=== PATIENT | male | born 1950 | race Caucasian/White ===

== ENCOUNTER 2019-03-20 06:44 | Day surgery (SDC) | payer OTHER ==
[2019-03-20] MEDS ORDERED: BUPIVACAINE 0.25% PF 10 ML VIAL ONE (07:18)
[2019-03-20] MEDS ORDERED: LIDOCAINE 2% MPF 5 ML VIAL ONE ×2 (07:18→08:26)
[2019-03-20] MEDS ORDERED: TETRACAINE HCL 0.5% 4ML OPTH ONE (07:18)
[2019-03-20] MEDS ORDERED: CYCLOPENTOLATE 1% OPTH 2 ML ONE (07:18)
[2019-03-20] MEDS ORDERED: LIDOCAINE HCL/PF 3.5% OPTH GEL ONE (07:18)
[2019-03-20] MEDS ORDERED: PHENYLEPHRINE 10% OPTH 5ML ONE (07:19)
[2019-03-20] MEDS ORDERED: NA CHLORIDE 0.9% 500 ML ONE (07:19)
[2019-03-20] MEDS ORDERED: PHENYLEPHRINE 10% OPTH 5ML OPTH ONE ×2 (07:20→07:25)
[2019-03-20] MEDS ORDERED: CYCLOPENTOLATE 1% OPTH 2 ML OPTH ONE ×2 (07:20→07:25)
[2019-03-20] MEDS ORDERED: NS 0.9% VIAL 10 ML ONE (08:02)
[2019-03-20] MEDS ORDERED: BALANCED SALT IRRIG PLAIN 500 ML BTL IRR ONE (08:03)
[2019-03-20] MEDS ORDERED: EPINEPHRINE/PF 1 MG/ML AMP ONE (08:04)
[2019-03-20] MEDS ORDERED: DUOVISC 1 KIT OPTH ONE (08:04)
[2019-03-20] MEDS: EPINEPHRINE/PF 1 MG/ML AMP ONE ×2 (08:25→08:30)
[2019-03-20] MEDS ORDERED: PROPOFOL 200 MG/20 ML VIAL IV ONE (08:26)
[2019-03-20] MEDS: LIDOCAINE 1% MPF 2 ML AMPULE ONE ×2 (08:30→08:32)
[2019-03-20] MEDS ORDERED: MIDAZOLAM HCL 2 MG/2 ML INJ ONE (08:31)
[2019-03-20] MEDS ORDERED: FENTANYL CITR 100 MCG/2 ML ONE (08:32)
[2019-03-20] MEDS: MOXIFLOXACIN HCL 10 DROPS/ML **OR USE OPTH ONE ×2 (08:33→08:44)
--- NOTE | 2019-03-20 08:54 | P.BOP ---
Preoperative diagnosis: Nuclear sclerotic cataract OD Postoperative diagnosis: Same Primary procedure: Phacoemulsification with IOL OD Estimated blood loss: None Anesthesia: Local (Topical with anesthesia for cataract surgery) Complications: None Implants: ZCB00 +21.5 Transferred to: Other (Day surgery) Condition: Good
--- NOTE | 2019-03-20 12:15 | OP ---
Date of Procedure: 03/20/2019 Surgeon: Joleen Abrams MD Anesthesiologist: Lissette Ledbetter CRNA Preoperative Diagnosis: Nuclear sclerotic cataract OD (right eye). Operation Performed: Phacoemulsification with intraocular lens implant, right eye. Anesthesia: Per cataract surgery. Complications: None. Description Of Procedure: In the operating room the patient was prepped and draped in the usual ster ile fashion for ophthalmic surgery. A lid speculum was placed in the right eye. Two paracentesis si hailey were made superiorly and inferiorly in the limbal cornea. Viscoat was placed in the anterior park mber and a crescent blade was used to make a corneal groove and tunnel, and a keratome was used to en ter the anterior chamber. Provisc was placed in the anterior chamber and a 360 degree capsulotomy wa s performed with a cystitome. The lens was hydrodissected with BSS and rotated freely. The lens was removed with a stop and chop technique. 19.22 Phaco CDE was used to remove the lens. Residual mendez ex was removed with the irrigation and aspiration. Provisc was placed in the capsular bag. A ZCB00 +21.5 Lens was placed in the capsular bag without complications. Irrigation and aspiration was used to remove residual viscoelastic. The paracentesis sites were hydrated with BSS. The wound and parac entesis sites were inspected and found to be watertight. Vigamox 0.07 cc was placed intracamerally a t the end of the procedure. The eye was irrigated with balanced salt solution. The eye was patched with a soft cotton patch and Chou metal shield. The patient was returned to day surgery in good condition. Comments: Akten was placed in the eye in Day surgery and irrigated out of the eye with BSS in the OR . Preservative-free 1% lidocaine was placed in the anterior chamber. This was followed by 1:5000 ep inephrine. Both were placed prior to Viscoat. Discharge Instructions: Mr. Claudio is discharged to home in good condition and is to follow up with Ruthie Abrams in the morning. DRAGAN/WANDER Voice ID: [id number] Report ID: [id number]
== END 2019-03-20 09:20 | disposition home or self-care (01) ==
LOC: OR 06:44
PROVIDERS: ATTEND Ophthalmology Retina Specialist
PROC: 08RJ3JZ Replacement of Right Lens with Synthetic Substitute, Percutaneous Approach (ICD-10-PCS; principal; 2019-03-20 08:30)
DX: H25.11 Age-related nuclear cataract, right eye (principal); E11.9 Type 2 diabetes mellitus without complications; E78.00 Pure hypercholesterolemia, unspecified; D56.3 Thalassemia minor; I10 Essential (primary) hypertension; Z79.84 Long term (current) use of oral hypoglycemic drugs; Z79.1 Long term (current) use of non-steroidal anti-inflammatories (NSAID); Z79.899 Other long term (current) drug therapy; Z87.891 Personal history of nicotine dependence
CPT/HCPCS: 66984; 36415; 84132; 82962; J0171 ×2; J2250; J3010; J2001; J2704

== ENCOUNTER 2022-11-11 10:27 | Emergency (ER) | payer OTHER ==
--- OUTSIDE RECORDS SUMMARY | 2022-11-11 10:36 | XMS REPORT | Continuity of Care Document ---
:1950 Author Organization [facility] t Address [address] [place] [address] Care Team Providers Name Role Phone Asked, No Pcp Primary Care Physician Unavailable [id number] Attending Clinician Unavailable Donavon Acuna Attending Clinician Unavailable Donavon Acuna Attending Clinician Unavailable ARACELIS HOOK Attending Clinician Unavailable Rhina Attending Clinician Unavailable FANY AGUILAR Attending Clinician Unavailable Wade Cedillo MD Attending Clinician Joy Dahl Attending Clinician Unavailable ERNESTO MORENO Attending Clinician Unavailable Ernesto Moreno Attending Clinician CLARISSE WASHINGTON Attending Clinician Unavailable MARY GRACE Attending Clinician Unavailable Fiona Mcfarland Attending Clinician [phone] Ana Paula BAE, Aggie Attending Clinician Unavailable Jocelyne Mar Attending Clinician MD JOCELYNE MAR Attending Clinician Unavailable Rand Tinoco MA Attending Clinician Unavailable SELVIN ANSARI Attending Clinician Unavailable MD SELVIN ANSARI Attending Clinician Unavailable [id number] Admitting Clinician Unavailable Donavon Acuna Admitting Clinician Unavailable Rhina Admitting Clinician Unavailable ERNESTO MORENO Admitting Clinician Unavailable Ernesto Moreno Admitting Clinician BARTOLO_Jazzmine Admitting Clinician Unavailable JOCELYNE MAR Admitting Clinician Unavailable MD JOCELYNE MAR Admitting Clinician Unavailable JACQUIE CHAVEZ Admitting Clinician Unavailable MD JACQUIE CHAVEZ Admitting Clinician Unavailable Payers Payer Name Policy Type Policy Number Effective Date Expiration Date S cale MEDICARE PART A [id number] 2014 2024 AND B 00:00:00 00:00:00 [place]IC[place]: [id number] 2014 [employer] 00:00:00 Problems Condition Condition Condition Status Onset Resolution Last Treating Co mments Source Name Details Category Date Date Treatment Clinician Date FALL FALL Diagnosis Active 2021-06-25 Mem oria Active 06-21 10:08:00 l 06/21/2021 00:00: Homar sultana [address], [facility] FEMUR FEMUR Diagnosis Active 2021-07-01 Mem oria FX,S/P FX,S/P 06-21 09:56:00 l FALL FALL 00:00: [place] Active 00 06/21/2021 [facility] LIFE LIFE Diagnosis Active 2021-06-25 Mem oria FLIGHT FLIGHT 06-21 10:08:00 l Active 00:00: [place] 06/21/2021 00 [facility] Aortic Aortic Problem Active [place] valve Valve 5-04 Communi stenosis Stenosis 00:00: ty 00 Hospita Clinics Carotid Carotid Problem Active [place] atheroscle Atheroscle 5-04 Co m[facility] rosis rosis [facility]:00: [facility] Coronary Coronary Disease Active Overview: Me thodi artery artery 4-[address] disease disease 00:00: g of this Hospi ta involving involving 00 note l [place] might be coronary coronary different artery artery from the original. Added automatic ally from request for surgery [id number] Osteoporos Osteoporos Problem Active S niniy is is 3-17 Communi 00:00: ty [facility] COVID-19 Covid-19 Problem Active Sween y 1-28 Communi 00:00: ty 00 Hospita l Clinics Hypoxic Hypoxic Disease Active Methodi 1- st 00:00: Hospita 00 l COVID-19 COVID-19 Disease Active Metho di virus virus 1- st infection infection 00:00: Hosp rubén 00 l Malaise Malaise Problem Active [place] 9-02 Communi 00:00: ty 00 Hospita l Clinics Edema Edema Problem Active [place] 6-16 Communi 00:00: ty 00 Hospita l Clinics Compressio Compressio Problem Active S weeny n fracture n Fracture -16 Co mmuni of of 00:00: ty thoracic Thoracic 00 Hospit a spine Spine l Clinics Screening Screening Problem Active Swe anand for for - Communi osteoporos Osteoporos 00:00: ty is is 00 Hospita Clinics Acute Acute Problem Active [place] bronchitis Bronchitis 4-17 Co mmuni 00:00: ty 00 Hospita Clinics Type 2 Type 2 Problem Active [place] diabetes Diabetes 3-27 Commun i mellitus Mellitus 00:00: ty without without 00 Hospita complicati Complicati l on on Clinics Osteoarthr Osteoarthr Problem Active S weeny itis of itis of 3-27 Communi knee Knee 00:00: ty 00 Hospita Clinics Chest wall Chest Wall Problem Active S weeny pain Pain 3-27 Communi 00:00: ty 00 Hospita Clinics Dizziness Problem Active 2013-2021-06-26 Me moria (finding) Dizziness 2- 23:11:19 l (finding) 00:00: [place] Active 00 12/07/2013 Problem 06/26/2021 Data migrated from [employer] on 03/12/15. [facility] Hyperlipid Hyperlipid Problem Active [facility] Bursitis Bursitis Problem Active [place] [facility] Hallux Hallux Problem Active [place] [facility] Asthma Asthma Problem Active 2021-06-26 Mem oria (disorder) (disorder) 23:11:19 l Active [place] Problem 06/26/2021 Data migrated from [employer] on 03/12/15. [facility] Benign Benign Problem Active 2021-06-26 Jose Antonio yossi prostatic prostatic 23:11:19 l hypertroph hypertroph He rmann without without outflow outflow obstructio obstructio n n (disorder) (disorder) Active Problem 06/26/2021 [facility] Gout Gout Problem Active 2021-06-26 Memor ia (disorder) (disorder) 23:11:19 l Active [place] Problem 06/26/2021 [facility] on 03/12/15. [facility] Hypertensi Hypertens Problem Active 2021-06-26 Memoria ve sanjiv 23:11:19 l disorder, disorder, Herm isabel systemic systemic arterial arterial (disorder) (disorder) Active Problem 06/26/2021 [facility] Hyponatrem Hyponatre Problem Active 2021-06-26 Memoria ia isak 23:11:19 l (disorder) (disorder) He rmann Active Problem 06/26/2021 [facility] UNSP UNSP Diagnosis Active 2021-07-01 Mem oria FRACTURE FRACTURE 09:56:00 l OF UNSP OF UNSP [place] FEMUR, FEMUR, INIT INIT ENCNTR ENCNTR Active [facility] Alcohol Alcohol Problem Active 2021-06-26 Me moria dependence dependence 23:11:19 l (disorder) (disorder) He rmann Active Problem 06/26/2021 [facility] Anemia of Anemia of Problem Active 2021-06-26 Memoria chronic chronic 23:11:19 l disorder disorder Homar n (disorder) (disorder) Active Problem 06/26/2021 [facility] Aortic Aortic Disease Recurre Methodi stenosis, stenosis, nce st severe severe Hospita l Aneurysm Aneurysm Disease Recurre Meth regulo of of nce st ascending ascending Hosp rubén aorta aorta l Type 2 Type 2 Disease Recurre Methodi diabetes diabetes nce st mellitus, mellitus, Hosp rubén without without l long-term long-term current current use of use of insulin insulin Diabetic Diabetic Disease Recurre Meth regulo neuropathy neuropathy nce st associated associated Ho spita with type with type l 2 diabetes 2 diabetes mellitus mellitus Thalassemi Thalassemi Disease Recurre Methodi a minor a minor nce st Hospita l Essential Essential Disease Recurre Me thodi hypertensi hypertensi nce st on on Hospita l Mixed Mixed Disease Recurre Methodi hyperlipid hyperlipid nce st emia emia Hospita l PTSD PTSD Disease Recurre Methodi (post-trau (post-trau nce [facility] Hospita stress stress l disorder) disorder) Anxiety Anxiety Disease Recurre Method i nce st Hospita l Chronic Chronic Disease Recurre Overview: Met hodi diastolic diastolic nce Formattin s t congestive congestive g of this Hospita heart heart note l failure failure might be different from the original. NYHA FC II Diabetes Diabetes Disease Active Overview: Me thodi Formattin st g of this Hospita note l might be different from the original. NIDDM Allergies, Adverse Reactions, Alerts Allergy Allergy Status Severity Reaction(s) Onset Inactive Treating Comm ents Source Name Type Date Date Clinician NKA Allergy Active ENCGEN 07-10 12:08: 25 NKA Allergy Active ENCGEN 07-10 12:08: 25 NKA Allergy Active ENCGEN 07-10 12:08: 25 NKA Allergy Active ENCGEN 07-10 12:08: 25 Meperidi Propensi Active Anxiety Metho di ne ty to 4-14 st adverse 00:00: Hospita reaction 00 l s to drug No Known Drug Active [facility] Allopuri Allergy Active [place] [facility] Family History Family Member Diagnosis Comments Start Date Stop Date Source Cousin Coronary artery [facility] disease Social History Social Habit Start Date Stop Date Quantity Comments Source History [facility] Comment Hospital History [facility] Std Drinks Hospit al History [facility] B[facility] History of tobacco Current smoker [facility] use [facility] Social History 2021-06-21 2021-06-21 [facility] 18:44:26 18:44:26 Alcohol intake 2021-01-29 2021-01-29 Current drinker Metho dist 00:00:00 00:00:00 of alcohol Hospital (finding) Tobacco use and 2021-01-15 2021-01-15 Smokeless tobacco Me thodist exposure 00:00:00 00:00:00 non-user Hospital Cigarettes smoked 2021-01-15 2021-01-[address] current (pack per 00:00:00 00:00:00 Hospita l day) - Reported Cigarette 2021-01-15 2021-01-15 [facility] pack-years 00:00:00 00:00:00 Hospital History SDOH 2020-11-05 2020-11-05 1 [facility] Ass[facility] At [birth year] M [facility] 00:00:00 00:00:00 Hospital Smoking Status Start Date Stop Date Source Never Smoker [facility] Ex-smoker 2021-01-15 00:00:00 2021-01-15 00:00:00 [facility] Medications Ordered Filled Start Stop Current Ordering Indication Dosage Frequency Signature Comments Components Source Medication Medication Date Date Medication? Clinician (SIG) Name Name Metformin No Notes: Memori a 9-14 (Same as: l 21:30: Glucophage [place] ) Take with meal Metformin No Notes: Memori a 9-14 (Same as: l 21:30: Glucophage [place] ) Take with meal gabapentin Yes 100 mg = 1 M emoria 100 MG Oral 14 cap, PO, l Capsule 19:35: Q8H-06, 0 Almita nn 00 Refill(s) Oxycodone Yes 5 mg = 1 Jose Antonio yossi Hydrochlori -14 tab, PO, l de 5 MG 19:35: Q4H, PRN Homar n Oral Tablet 00 Pain Score 4-6, 0 Refill(s) gabapentin Yes 100 mg = 1 M emoria 100 MG Oral -14 cap, PO, l Capsule 19:35: Q8H-06, 0 [place]mita nn 00 Refill(s) Oxycodone Yes 5 mg = 1 Jose Antonio yossi Hydrochlori -14 tab, PO, l de 5 MG 19:35: Q4H, PRN Homar n Oral Tablet 00 Pain Score 4-6, 0 Refill(s) Lidocaine Yes 1 patch, Jose Antonio yossi 0.04 MG/MG 06-24 TOP, l Medicated 17:22: Daily, Homar n Patch 00 Remove after 12 hours, 0 Refill(s) Melatonin 3 Yes 3 mg = 1 Me moria MG Extended 9-14 tab, PO, l Release 17:22: Bedtime, Homar n Tablet 00 PRN Insomnia, 0 Refill(s) methocarbam Yes 750 mg = 1 Memoria ol 750 mg 9-14 tab, PO, l oral tablet 17:22: Q8H-06, 0 H erm Refill(s) multivitami Yes 1 tab, PO, Memoria n 9-14 Daily, 0 l 17:22: Refill(s) [place] 00 sennosides, Yes 17.2 mg = M emoria CARE HOME 8.6 MG 9-14 2 tab, PO, l Oral Tablet 17:22: Bedtime, 0 [place] 00 Refill(s) POLYETHYLEN Yes 17 gm, PO, Memoria E GLYCOL 9-14 Daily, 0 l 3350 17:22: Refill(s) Lidocaine Yes 1 patch, Jose Antonio yossi 0.04 MG/MG 9-14 TOP, l Medicated 17:22: Daily, Homar n Patch 00 Remove after 12 hours, 0 Refill(s) Melatonin 3 Yes 3 mg = 1 Me moria MG Extended 9-14 tab, PO, l Release 17:22: Bedtime, Homar n Tablet 00 PRN Insomnia, 0 Refill(s) methocarbam Yes 750 mg = 1 Memoria ol 750 mg 9-14 tab, PO, l oral tablet 17:22: Q8H-06, 0 H erm Refill(s) multivitami Yes 1 tab, PO, Memoria n 9-14 Daily, 0 l 17:22: Refill(s) [place] 00 sennosides, Yes 17.2 mg = M emoria CARE HOME 8.6 MG 9-14 2 tab, PO, l Oral Tablet 17:22: Bedtime, 0 [place] 00 Refill(s) POLYETHYLEN Yes 17 gm, PO, Memoria E GLYCOL 9-14 Daily, 0 l 3350 17:22: Refill(s) [place] 00 Metformin Yes 1,000 mg = Me moria hydrochlori 9-14 1 tab, PO, l de 1000 MG 17:21: BID-Meals, H ermann Oral Tablet 00 # 30 tab, 0 Refill(s), other acetaminoph Yes 1,000 mg = Memoria en 500 mg 9-14 2 tab, PO, l oral 17:21: Q8H-06, 0 [place] tablet. 00 Refill(s) Calcium 0 Yes 1,250 mg = Jose Antonio yossi Carbonate 9-14 1 tab, PO, l 1250 MG 17:21: BID, 0 [place] Oral Tablet 00 Refill(s) Cholecalcif 0 Yes 1,000 Memor ia kaylie 9-14 IntlUnit = l 17:21: 1 tab, PO, [place] 00 Daily, 0 Refill(s) Enoxaparin Yes 30 mg = Jose Antonio yossi 9-14 0.3 mL, l 17:21: SUB-Q, [place] 00 Q12H, 0 Refill(s) Metformin Yes 1,000 mg = Me moria hydrochlori 9-14 1 tab, PO, l de 1000 MG 17:21: BID-Meals, H ermann Oral Tablet 00 # 30 tab, 0 Refill(s), other acetaminoph Yes 1,000 mg = Memoria en 500 mg 9-14 2 tab, PO, l oral 17:21: Q8H-06, 0 [place] tablet. 00 Refill(s) Calcium Yes 1,250 mg = Jose Antonio yossi Carbonate 9-14 1 tab, PO, l 1250 MG 17:21: BID, 0 [place] Oral Tablet 00 Refill(s) Cholecalcif Yes 1,000 Memor ia kaylie 9-14 IntlUnit = l 17:21: 1 tab, PO, [place] 00 Daily, 0 Refill(s) Enoxaparin Yes 30 mg = Jose Antonio yossi 9-14 0.3 mL, l 17:21: SUB-Q, [place] 00 Q12H, 0 Refill(s) remove No Notes: Memoria patch 9-14 Remove l 02:00: patch 12 [place] 00 hours after applicatio n each day. remove No Notes: Memoria patch 9-14 Remove l 02:00: patch 12 [place] 00 hours after applicatio n each day. Metformin No 500 mg, Memor ia hydrochlori 9-13 Route: PO, l de 500 MG 22:00: Drug form: He rmann Oral Tablet 00 TAB, BID, Dosing Weight 100, kg, Start date: 06/23/21 17:00:00 CDT, Duration: 30 day, Stop date: 07/23/21 9:00:00 CDT Metformin No 500 mg, Memor ia hydrochlori 9-13 Route: PO, l de 500 MG 22:00: Drug form: He rmann Oral Tablet 00 TAB, BID, Dosing Weight 100, kg, Start date: 06/23/21 17:00:00 CDT, Duration: 30 day, Stop date: 07/23/21 9:00:00 CDT Metformin No Notes: Memori a hydrochlori 9-13 (Same as: l de 500 MG 21:30: Glucophage He rmann Oral Tablet 00 ) Take with meal Glipizide No Notes: Memori a 9-13 (Same as: l 21:30: Glucotrol) [place] 00 30 min before meals. Metformin No Notes: Memori a hydrochlori 9-13 (Same as: l de 500 MG 21:30: Glucophage He rmann Oral Tablet 00 ) Take with meal Glipizide No Notes: Memori a 9-13 (Same as: l 21:30: Glucotrol) [place] 00 30 min before meals. NS (Bolus) No 1,000 mL, Me moria IV 9-13 1,000 l 18:42: ml/hr, Ch[place] 00 Infuse Over: 1 hr, Route: IV, 1,000, Drug form: INJ, ONCE, Priority: STAT, Dosing Weight 100 kg, Start date: 06/23/21 13:42:00 CDT, Stop date: 06/23/21 13:42:00 CDT, 0 NS (Bolus) No 1,000 mL, Me moria IV 9-13 1,000 l 18:42: ml/hr, Chiki 00 Infuse Over: 1 hr, Route: IV, 1,000, Drug form: INJ, ONCE, Priority: STAT, Dosing Weight 100 kg, Start date: 06/23/21 13:42:00 CDT, Stop date: 06/23/21 13:42:00 CDT, 0 Metformin No 500 mg = 1 Me moria hydrochlori 9-13 tab, PO, l de 500 MG 16:42: QID, 0 Homar n Oral Tablet 00 Refill(s) Metformin No 500 mg = 1 Me moria hydrochlori 9-13 tab, PO, l de 500 MG 16:42: QID, 0 Homar n Oral Tablet 00 Refill(s) Glipizide Yes 20 mg = 2 Mem oria 10 MG Oral 9-13 tab, PO, l Tablet 16:36: BID-Before Almita nn 00 Meals, # 180 tab, 1 Refill(s) Glipizide Yes 20 mg = 2 Mem oria 10 MG Oral 9-13 tab, PO, l Tablet 16:36: BID-Before Almita nn 00 Meals, # 180 tab, 1 Refill(s) Glipizide No 10 mg, 1 Jose Antonio yossi 10 MG Oral 9-13 tab, l Tablet 16:33: Route: PO, Almit[place] nn 00 Daily, Dosing Weight 100, kg, Priority: NOW, Start date: 06/23/21 11:33:00 CDT, Duration: 30 day, Stop date: 07/23/21 9:00:00 CDT Glipizide No 10 mg, 1 Jose Antonio yossi 10 MG Oral 9-13 tab, l Tablet 16:33: Route: PO, Almita nn 00 Daily, Dosing Weight 100, kg, Priority: NOW, Start date: 06/23/21 11:33:00 CDT, Duration: 30 day, Stop date: 07/23/21 9:00:00 CDT Oxycodone No Notes: Memori a Hydrochlori 9-13 (Same as: l de 5 MG 16:32: Roxicodone Herm isabel Oral Tablet 00 ) Oxycodone No Notes: Memori a Hydrochlori 9-13 (Same as: l de 5 MG 16:32: Roxicodone Herm isable Oral Tablet 00 ) gabapentin No Notes: Memor ia 100 MG Oral 9-13 (Same as: l Capsule 16:30: Neurontin) Herm isabel gabapentin No Notes: Memor ia 100 MG Oral - (Same as: l Capsule 16:30: Neurontin) Herm isabel Linagliptin No 5 mg, Memor ia 06-23 Route: PO, l 14:00: Daily, Dosing Weight 100, kg, Start date: 06/23/21 9:00:00 CDT Lidocaine No Notes: Memori a 0.04 MG/MG 06-23 Apply only l Medicated 14:00: once for Herm isabel Patch 00 up to 12 hours in a 24-hour period (12 hours on and 12 hours off). (Same as: Aspercreme Lidocaine Patch) "Remove old patch before applicatio n of new patch" No Notes: Memoria 06-23 Same as l 14:00: Cholecalcif No Notes: Jose Antonio yossi kaylie 06-23 Same as : l 14:00: Vitamin D3 Linagliptin No 5 mg, Memor ia 06-23 Route: PO, l 14:00: Daily, Dosing Weight 100, kg, Start date: 06/23/21 9:00:00 CDT Lidocaine No Notes: Memori a 0.04 MG/MG 06-23 Apply only l Medicated 14:00: once for Herm isabel Patch 00 up to 12 hours in a 24-hour period (12 hours on and 12 hours off). (Same as: Aspercreme Lidocaine Patch) "Remove old patch before applicatio n of new patch" No Notes: Memoria 9- Same as l 14:00: Cholecalcif No Notes: Jose Antonio yossi kaylie 13 Same as : l 14:00: Vitamin D3 Calcium No Notes: Memoria Gluconate 06-23 Contains: l 08:23: calcium gluconate 20mg/mL NaCl 0.67% 50mL WASTE: F/P - Sink; E - Municipal Trash Bin Calcium No Notes: Memoria Gluconate 06-23 Contains: l 08:23: calcium gluconate 20mg/mL NaCl 0.67% 50mL WASTE: F/P - Sink; E - Municipal Trash Bin Enoxaparin No Notes: Memor ia 9-13 (Same as: l 02:00: Lovenox) Enoxaparin No Notes: Memor ia 9-13 (Same as: l 02:00: Lovenox) Cefazolin No Notes: Memori a 9-13 (Same as l 01:00: Ancef) Cefazolin No Notes: Memori a 9-13 (Same as l 01:00: Ancef) [place] 00 Calcium No Notes: Memoria Carbonate -12 500mg l 22:00: elemental calcium = 1250mg calcium carbonate. Contains 500mg elemental calcium. (Same As: OsCal 500) Calcium No Notes: Memoria Carbonate - 500mg l 22:00: elemental calcium = 1250mg calcium carbonate. Contains 500mg elemental calcium. (Same As: OsCal 500) sugammadex No Route: IV, M emoria (ANES) 06-22 Drug form: l 19:26: SOLNChiki ONCE, Stop date: 06/22/21 14:26:00 CDT sugammadex No Route: IV, M emoria (ANES) 06-22 Drug form: l 19:26: SOLNChiki 00 ONCE, Stop date: 06/22/21 14:26:00 CDT ondansetron No Route: IV, Memoria (ANES) 06-22 Drug form: l 19:13: INJ, ONCE, Stop date: 06/22/21 14:13:00 CDT phenylephri No Route: IV, Memoria ne (ANES) 06-22 Drug form: l 19:13: INJ, ONCE, [place] 00 Stop date: 06/22/21 14:13:00 CDT ondansetron No Route: IV, Memoria (ANES) 06-22 Drug form: l 19:13: INJ, ONCE, [place] 00 Stop date: 06/22/21 14:13:00 CDT phenylephri No Route: IV, Memoria ne (ANES) 06-22 Drug form: l 19:13: INJ, ONCE, Stop date: 06/22/21 14:13:00 CDT Acetaminoph No Notes: Max Memoria en 06-22 acetaminop l 19:00: hen 4000 [place] 00 mg/day (4 gm/day). (Same as: Tylenol Extra Strength) Methocarbam No Notes: Jose Antonio yossi ol 06-22 (Same l 19:00: as:Robaxin ) Acetaminoph No Notes: Max Memoria en 06-22 acetaminop l 19:00: hen 4000 [place] 00 mg/day (4 gm/day). (Same as: Tylenol Extra Strength) Methocarbam No Notes: Jose Antonio yossi ol - (Same l 19:00: as:Robaxin ) ePHEDrine No Route: IV, Me moria (ANES) 06-22 Drug form: l 18:27: INJ, ONCE, Stop date: 06/22/21 13:27:00 CDT ePHEDrine No Route: IV, Me moria (ANES) 06-22 Drug form: l 18:27: INJ, ONCE, Stop date: 06/22/21 13:27:00 CDT ceFAZolin No Route: IV, Me moria (ANES) 06-22 Drug form: l 17:57: INJ, ONCE, Stop date: 06/22/21 12:57:00 CDT ceFAZolin No Route: IV, Me moria (ANES) 06-22 Drug form: l 17:57: INJ, ONCE, Stop date: 06/22/21 12:57:00 CDT albuterol No Route: Memori a (ANES) 06-22 INHALATION l 17:52: , Drug form: AERO/A, ONCE, Stop date: 06/22/21 12:52:00 CDT albuterol No Route: Memori a (ANES) - INHALATION l 17:52: , Drug form: AERO/A, ONCE, Stop date: 06/22/21 12:52:00 CDT Oxycodone No Notes: Memori a Hydrochlori -12 (Same as: l de 5 MG 17:51: Roxicodone Herm isabel Oral Tablet ) Oxycodone No Notes: Memori a Hydrochlori -12 (Same l de 1 MG/ML 17:51: as:'Roxico H ermann Oral done) To Solution be drawn up in 3 mL syr Oxycodone No Notes: Memori a Hydrochlori -12 (Same as: l de 5 MG 17:51: Roxicodone Herm isabel Oral Tablet ) Oxycodone No Notes: Memori a Hydrochlori 9-12 (Same l de 1 MG/ML 17:51: as:'Roxico H ermann Oral done) To Solution be drawn up in 3 mL syr lidocaine No Route: IV, Me moria (ANES) 06-22 Drug form: l 17:47: INJ, ONCE, Stop date: 06/22/21 12:47:00 CDT propofol No Route: IV, Mem oria (ANES) 06-22 Drug form: l 17:47: INJ, ONCE, Stop date: 06/22/21 12:47:00 CDT rocuronium No Route: IV, M emoria (ANES) 06-22 Drug form: l 17:47: INJ, ONCE, Stop date: 06/22/21 12:47:00 CDT fentaNYL No Route: IV, Mem oria (ANES) 06-22 Drug form: l 17:47: INJ, ONCE, Stop date: 06/22/21 12:47:00 CDT Melatonin 3 No Notes: Jose Antonio yossi MG Extended 06-22 (Same as: l Release 17:47: Melatonin) Herm isabel Tablet 00 lidocaine No Route: IV, Me moria (ANES) 06-22 Drug form: l 17:47: INJ, ONCE, Stop date: 06/22/21 12:47:00 CDT propofol No Route: IV, Mem oria (ANES) 06-22 Drug form: l 17:47: INJ, ONCE, [place]iki Stop date: 06/22/21 12:47:00 CDT rocuronium No Route: IV, M emoria (ANES) 06-22 Drug form: l 17:47: INJ, ONCE, Chiki Stop date: 06/22/21 12:47:00 CDT fentaNYL No Route: IV, Mem oria (ANES) 06-22 Drug form: l 17:47: INJ, ONCE, [place] Stop date: 06/22/21 12:47:00 CDT Melatonin 3 No Notes: Jose Antonio yossi MG Extended 06-22 (Same as: l Release 17:47: Melatonin) Herm isabel Tablet Acetaminoph No Notes: Max Memoria en 06-22 acetaminop l 17:34: hen 4000 [place] 00 mg/day (4 gm/day). (Same as: Tylenol Extra Strength) Oxycodone No Notes: Memori a Hydrochlori 06-22 (Same as: l de 5 MG 17:34: Roxicodone Herm isabel Oral Tablet ) Hydromorpho No Notes: Jose Antonio yossi ne 06-22 Same as l 17:34: Dilaudid [place] 00 Flumazenil No Notes: Memor ia 06-22 (Same as: l 17:34: Romazicon) [place] Naloxone No Notes: Memoria 06-22 Same as l 17:34: Narcan [place] Ondansetron No Notes: Jose Antonio yossi -12 (Same as: l 17:34: Zofran) [place] MEDICATION WASTE Product Size: 4 mg Product Wasted: ___ mg Acetaminoph No Notes: Max Memoria en -12 acetaminop l 17:34: hen 4000 [place] 00 mg/day (4 gm/day). (Same as: Tylenol Extra Strength) Oxycodone No Notes: Memori a Hydrochlori 9-12 (Same as: l de 5 MG 17:34: Roxicodone Herm isabel Oral Tablet 00 ) Hydromorpho No Notes: Jose Antonio yossi ne 9-12 Same as l 17:34: Dilaudid Flumazenil No Notes: Memor ia 9-12 (Same as: l 17:34: Romazicon) Naloxone No Notes: Memoria 9-12 Same as l 17:34: Narcan Ondansetron No Notes: Jose Antonio yossi 9-12 (Same as: l 17:34: Zofran) MEDICATION WASTE Product Size: 4 mg Product Wasted: ___ mg Lactated No Route: IV, Mem oria Ringers 9-12 Total l Injection 17:05: Volume: Almita nn IV (ANES) 00 1,000, 1000 mL Start date: 06/22/21 12:05:00 CDT, Stop date: 06/22/21 13:05:00 CDT Lactated No Route: IV, Mem oria Ringers 9-12 Total l Injection 17:05: Volume: Almita nn IV (ANES) 00 1,000, 1000 mL Start date: 06/22/21 12:05:00 CDT, Stop date: 06/22/21 13:05:00 CDT Atenolol 25 No Notes: Jose Antonio yossi MG Oral 9-12 (Same l Tablet 14:00: As:Tenormi Almita nn 00 n) Finasteride No Notes: Jose Antonio yossi 9-12 (Same as: l 14:00: Proscar) "Do Not Crush" Women of childbeari ng age should not touch or handle broken tablets [facility] 3:Reproduc tive risk Hazardous Drug -- Refer to safe handling procedure PPE Matrix Folic Acid No Notes: Memor ia 9-12 (Same as: l 14:00: Folvite) [place] 00 Losartan No Notes: Memoria 9-12 (Same as: l 14:00: Cozaar) Omeprazole No 20 mg, 1 Mem oria 9-12 tab, l 14:00: Route: PO, Drug form: ECTAB, Daily, Dosing Weight 106.818, kg, Start date: 06/22/21 9:00:00 CDT, Duration: 30 day, Stop date: 07/21/21 9:00:00 CDT Flomax No Notes: Memoria 9-12 (Same As: l 14:00: Flomax) "Do Not Crush" POLYETHYLEN No Notes: Jose Antonio yossi E GLYCOL 9-12 Dissolve l 3350 14:00: in 8 oz of water or juice. (Same as: Miralax) Thiamine No Notes: Memoria 9-12 (Same As: l 14:00: Vitamin B1) multivitami No Notes: Jose Antonio yossi n 9-12 (Same l 14:00: as:Thera) WASTE: F/P - Black; E - Municipal Trash Bin Take with food. Atenolol 25 No Notes: Jose Antonio yossi MG Oral 9-12 (Same l Tablet 14:00: As:Tenormi Almita nn n) Finasteride No Notes: Jose Antonio yossi 9-12 (Same as: l 14:00: Proscar) "Do Not Crush" Women of childbeari ng age should not touch or handle broken tablets [facility] 3:Reproduc tive risk Hazardous Drug -- Refer to safe handling procedure PPE Matrix Folic Acid No Notes: Memor ia 9-12 (Same as: l 14:00: Folvite) [place] 00 Losartan No Notes: Memoria 9-12 (Same as: l 14:00: Cozaar) Omeprazole No 20 mg, 1 Mem oria 9-12 tab, l 14:00: Route: PO, Drug form: ECTAB, Daily, Dosing Weight 106.818, kg, Start date: 06/22/21 9:00:00 CDT, Duration: 30 day, Stop date: 07/21/21 9:00:00 CDT Flomax No Notes: Memoria 9-12 (Same As: l 14:00: Flomax) [place] 00 "Do Not Crush" POLYETHYLEN No Notes: Jose Antonio yossi E GLYCOL 9-12 Dissolve l 3350 14:00: in 8 oz of [place] water or juice. (Same as: Miralax) Thiamine No Notes: Memoria 9-12 (Same As: l 14:00: Vitamin [place] 00 B1) multivitami No Notes: Jose Antonio yossi n 9-12 (Same l 14:00: as:Thera) [place] 00 WASTE: F/P - Black; E - Municipal Trash Bin Take with food. Protonix No Notes: Memoria 9-12 Tablet l 12:30: should not [place] 00 be chewed or crushed. (Same as: Protonix) Protonix No Notes: [facility]oria 9-12 Tablet l 12:30: should not [place] 00 be chewed or crushed. (Same as: Protonix) Streptococc No Notes: Jose Antonio yossi us 9-12 Shake well l pneumoniae 11:18: prior to Her [facility] serotype 1 08 use (Same capsular as: antigen Prevnar diphtheria 13) [id number] protein conjugate vaccine / Streptococc us pneumoniae serotype 14 capsular antigen diphtheria [id number] protein conjugate vaccine / Streptococc us pneumoniae serotype 18C capsular antigen d Streptococc No Notes: Jose Antonio yossi us 9-12 Shake well l pneumoniae 11:18: prior to Her [facility] serotype 1 08 use (Same capsular as: antigen Prevnar diphtheria 13) [id number] protein conjugate vaccine / Streptococc us pneumoniae serotype 14 capsular antigen diphtheria [id number] protein conjugate vaccine / Streptococc us pneumoniae serotype 18C capsular antigen d Famotidine No 20 mg, Memor ia 9-12 Route: IV, l 03:26: ONCE, [place] 00 Dosing Weight 106.818, kg, Start date: 06/21/21 22:26:00 CDT, Stop date: 06/21/21 22:26:00 CDT Famotidine No 20 mg, Memor ia 9-12 Route: IV, l 03:26: ONCE, [place] 00 Dosing Weight 106.818, kg, Start date: 06/21/21 22:26:00 CDT, Stop date: 06/21/21 22:26:00 CDT atorvastati No Notes: Jose Antonio yossi n 9-12 (Same as: l 02:00: Lipitor) gabapentin No Notes: Memor ia 9-12 (Same as: l 02:00: Neurontin) sennosides, No Notes: Jose Antonio yossi CARE HOME 9-12 (Same as: l 02:00: Senokot) atorvastati No Notes: Jose Antonio yossi n 9-12 (Same as: l 02:00: Lipitor) gabapentin No Notes: Mem[facility] ia 9-12 (Same as: l 02:00: Neurontin) sennosides, No Notes: Jose Antonio yossi CARE HOME 9-12 (Same as: l 02:00: Senokot) Lorazepam No Notes: Memori a 9-11 (Same as: l 23:22: Ativan) Lorazepam No Notes: Memori a 9-11 (Same as: l 23:22: Ativan) Enoxaparin No Notes: Memor ia 9-11 (Same as: l 23:00: Lovenox) Enoxaparin No Notes: Memor ia 9-11 (Same as: l 23:00: Lovenox) Tums No Notes: [facility]oria 9-11 (Same As: l 22:57: Tums) Calcium Carbonate 500 mg = 200 mg elemental calcium Dose = mg calcium carbonate ( mg elemental calcium) Tums No Notes: [facility] 9-11 (Same As: l 22:57: Tums) Calcium Carbonate 500 mg = 200 mg elemental calcium Dose = mg calcium carbonate ( mg elemental calcium) D-50-W No 12.5 gm, [facility] 9-11 25 mL, l 22:56: Route: IVP, Drug Form: INJ, Dosing Weight 106.818, kg, PRN, PRN Blood Glucose Results, Start date: 06/21/21 17:56:00 CDT, Duration: 30 day, Stop date: 07/21/21 17:55:00 CDT, 0 Glucagon 2020-0 No 1 mg, [facility] 9-11 Route: IM, l 22:56: Drug form: [place] 00 PDR/INJ, PRN, Dosing Weight 106.818, kg, PRN Blood Glucose Results, Start date: 06/21/21 17:56:00 CDT, Duration: 30 day, Stop date: 07/21/21 17:55:00 CDT, 0 Insulin 2020-0 No Notes: Memoria Lispro 9-11 (Same as: l 22:56: Humalog) Roll in palms of hands gently; Do not shake vigorously . WASTE: F/P - Black; E - Municipal Trash Bin Stable for 28 days at room temperatur e. Expires in days from ____Date D-50-W 2020-0 No 12.5 gm, [facility] 9-11 25 mL, l 22:56: Route: [place] 00 IVP, Drug Form: INJ, Dosing Weight 106.818, kg, PRN, PRN Blood Glucose Results, Start date: 06/21/21 17:56:00 CDT, Duration: 30 day, Stop date: 07/21/21 17:55:00 CDT, 0 Glucagon 2020-0 No 1 mg, [facility] 9-11 Route: IM, l 22:56: Drug form: [place] 00 PDR/INJ, PRN, Dosing Weight 106.818, kg, PRN Blood Glucose Results, Start date: 06/21/21 17:56:00 CDT, Duration: 30 day, Stop date: 07/21/21 17:55:00 CDT, 0 Insulin 2020-0 No Notes: [facility] Lispro 9-11 (Same as: l 22:56: Humalog) [place] 00 Roll in palms of hands gently; Do not shake vigorously . WASTE: F/P - Black; E - Municipal Trash Bin Stable for 28 days at room temperatur e. Expires in days from ____Date Acetaminoph No Notes: Max [facility]oria en -11 acetaminop l 22:55: hen 4000 [place] 00 mg/day (4 gm/day). (Same as: Tylenol Extra Strength) Oxycodone No Notes: Memori a Hydrochlori 9-11 (Same as: l de 1 MG/ML 22:55: 'Roxicodon H ermann Oral 00 e) Solution Oxycodone No Notes: Memori a Hydrochlori 9-11 (Same as: l de 5 MG 22:55: Roxicodone Herm isabel Oral Tablet 00 ) Naloxone No Notes: [facility] 9-11 Same as l 22:55: Narcan [place] 00 Acetaminoph No Notes: Max [facility]oria en 9-11 acetaminop l 22:55: hen 4000 [place] 00 mg/day (4 gm/day). (Same as: Tylenol Extra Strength) Oxycodone No Notes: Memori a Hydrochlori 9-11 (Same as: l de 1 MG/ML 22:55: 'Roxicodon H ermann Oral 00 e) Solution Oxycodone No Notes: Memori a Hydrochlori 9-11 (Same as: l de 5 MG 22:55: Roxicodone Herm isabel Oral Tablet 00 ) Naloxone No Notes: [facility] 9-11 Same as l 22:55: Narcan [place] 00 D-50-W No 12.5 gm, [facility] 9-11 25 mL, l 22:53: Route: [place] 00 IVP, Drug Form: INJ, Dosing Weight 106.818, kg, PRN, PRN Blood Glucose Results, Start date: 06/21/21 17:53:00 CDT, Duration: 30 day, Stop date: 07/21/21 17:52:00 CDT, 0 Glucagon No 1 mg, Mem[facility] 9 Route: IM, l 22:53: Drug form: [place] 00 PDR/INJ, PRN, Dosing Weight 106.818, kg, PRN Blood Glucose Results, Start date: 06/21/21 17:53:00 CDT, Duration: 30 day, Stop date: 07/21/21 17:52:00 CDT, 0 Ondansetron No Notes: Jose Antonio yossi 06-21 (Same as: l 22:53: Zofran) [place] 00 MEDICATION WASTE Product Size: 4 mg Product Wasted: ___ mg Acetaminoph No Notes: Do M emoria en 06-21 not exceed l 22:53: 4 gm/day. (Same as: Tylenol) Acetaminoph No Notes: Do M emoria en 06-21 not exceed l 22:53: 4 gm/day. [place] (Same as: Tylenol) D-50-W No 12.5 gm, Memoria - 25 mL, l 22:53: Route: IVP, Drug Form: INJ, Dosing Weight 106.818, kg, PRN, PRN Blood Glucose Results, Start date: 06/21/21 17:53:00 CDT, Duration: 30 day, Stop date: 07/21/21 17:52:00 CDT, 0 Glucagon No 1 mg, [facility] 06-21 Route: IM, l 22:53: Drug form: [place] 00 PDR/INJ, PRN, Dosing Weight 106.818, kg, PRN Blood Glucose Results, Start date: 06/21/21 17:53:00 CDT, Duration: 30 day, Stop date: 07/21/21 17:52:00 CDT, 0 Ondansetron No Notes: Jose Antonio yossi 06-21 (Same as: l 22:53: Zofran) [place] 00 MEDICATION WASTE Product Size: 4 mg Product Wasted: ___ mg Metformin No 500 mg = 1 Me moria hydrochlori -11 tab, PO, l de 500 MG 22:50: BID-Meals, He ann Oral Tablet 00 # 30 tab, 0 Refill(s) Tamsulosin Yes 0.4 mg = 1 M emoria hydrochlori 11 cap, PO, l de 0.4 MG 22:50: Daily, # Herm isabel Oral 00 30 cap, 0 Capsule Refill(s) [Flomax] omeprazole Yes 20 mg = 1 Me moria 20 mg oral 9-11 tab, PO, l enteric 22:50: Daily, # Homar n coated 00 30 tab, 3 tablet Refill(s) Metformin No 500 mg = 1 Me moria hydrochlori 9-11 tab, PO, l de 500 MG 22:50: BID-Meals, He rmann Oral Tablet 00 # 30 tab, 0 Refill(s) Tamsulosin Yes 0.4 mg = 1 M emoria hydrochlori 9-11 cap, PO, l de 0.4 MG 22:50: Daily, # Herm isabel Oral 00 30 cap, 0 Capsule Refill(s) [Flomax] omeprazole Yes 20 mg = 1 [facility] 20 mg oral 9-11 tab, PO, l enteric 22:50: Daily, # Homar n coated 00 30 tab, 3 tablet Refill(s) finasteride Yes 5 mg = 1 Me moria 5 mg oral 9-11 tab, PO, l tablet 22:49: Daily, # [place] 00 30 tab, 0 Refill(s) Folic Acid Yes 1 mg = 1 Mem oria 1 MG Oral 9-11 tab, PO, l Tablet 22:49: Daily, # [place] 00 30 tab, 0 Refill(s) Glipizide No 10 mg = 1 Mem oria 10 MG Oral 9-11 tab, PO, l Tablet 22:49: Before [place] 00 Breakfast, # 30 tab, 0 Refill(s) losartan 50 Yes 50 mg = 1 M emoria mg oral 9-11 tab, PO, l tablet 22:49: Daily, # [place] 00 30 tab, 0 Refill(s) meloxicam No 15 mg = 1 [facility] 15 mg oral 9-11 tab, PO, l tablet 22:49: Daily, PRN Almit[place] nn 00 Pain, # 30 tab, 1 Refill(s) finasteride Yes 5 mg = 1 Me moria 5 mg oral 9-11 tab, PO, l tablet 22:49: Daily, # [place] 00 30 tab, 0 Refill(s) Folic Acid Yes 1 mg = 1 [facility] oria 1 MG Oral 9-11 tab, PO, l Tablet 22:49: Daily, # [place] 00 30 tab, 0 Refill(s) Glipizide No 10 mg = 1 [facility] o[facility] 10 MG Oral 9-11 tab, PO, l Tablet 22:49: Before [place] 00 Breakfast, # 30 tab, 0 Refill(s) losartan 50 Yes 50 mg = 1 M emoria mg oral 9-11 tab, PO, l tablet 22:49: Daily, # [place] 00 30 tab, 0 Refill(s) meloxicam No 15 mg = 1 Mem [facility] 15 mg oral 9-11 tab, PO, l tablet 22:49: Daily, PRN [place] 00 Pain, # 30 tab, 1 Refill(s) Alogliptin Yes 25 mg = 1 [facility] mor[facility] 25 mg oral 9-11 tab, PO, l tablet 22:48: Daily, 0 [place] 00 Refill(s) Atenolol 25 Yes 25 mg = 1 M emoria MG Oral 9-11 tab, PO, l Tablet 22:48: Daily, # [place] 00 30 tab, 0 Refill(s) atorvastati Yes 40 mg = 1 M emoria n 40 mg 9-11 tab, PO, l oral tablet 22:48: Bedtime, # [place] 00 30 tab, 0 Refill(s) Alogliptin Yes 25 mg = 1 [facility] 25 mg oral 9-11 tab, PO, l tablet 22:48: Daily, 0 [place] 00 Refill(s) Atenolol 25 Yes 25 mg = 1 M emoria MG Oral 9-11 tab, PO, l Tablet 22:48: Daily, # [place] 00 30 tab, 0 Refill(s) atorvastati Yes 40 mg = 1 M emoria n 40 mg 9-11 tab, PO, l oral tablet 22:48: Bedtime, # [place] 00 30 tab, 0 Refill(s) Fentanyl No 50 [facility] 9-11 microgram, l 19:58: Route: IVP, ONCE, Dosing Weight 106.818, kg, Priority: STAT, Start date: 06/21/21 14:58:00 CDT, Stop date: 06/21/21 14:58:00 CDT Fentanyl 2021-0 No 50 [facility] 9-11 microgram, l 19:58: Route: IVP, ONCE, Dosing Weight 106.818, kg, Priority: STAT, Start date: 06/21/21 14:58:00 CDT, Stop date: 06/21/21 14:58:00 CDT Morphine 1-0 No 6 mg, [facility] 9-11 Route: l 18:27: IVP, ONCE, Dosing Weight 106.818, kg, Priority: STAT, Start date: 06/21/21 13:27:00 CDT, Stop date: 06/21/21 13:27:00 CDT Morphine 1-0 No 6 mg, [facility] 9-11 Route: l 18:27: IVP, ONCE, Dosing Weight 106.818, kg, Priority: STAT, Start date: 06/21/21 13:27:00 CDT, Stop date: 06/21/21 13:27:00 CDT Fentanyl 202-0 No 100 [facility] 9-11 microgram, l 17:52: Route: IVP, ONCE, Dosing Weight 106.818, kg, Priority: STAT, Start date: 06/21/21 12:52:00 CDT, Stop date: 06/21/21 12:52:00 CDT Fentanyl 2021-0 No 100 [facility] 9-11 microgram, l 17:52: Route: IVP, ONCE, Dosing Weight 106.818, kg, Priority: STAT, Start date: 06/21/21 12:52:00 CDT, Stop date: 06/21/21 12:52:00 CDT Saline 2020-0 No Notes: Memoria Flush 0.9% 9-11 Same as: l 17:33: BD Posiflush Sterile Saline No Notes: [facility] Flush 0.9% 9-11 Same as: l 17:33: BD Posiflush Sterile glipiZIDE Yes 10mg Q.5D Take 10 mg [facility] (GLUCOTROL) 4-[address] 10 MG 18:05: (two) Hospita tablet 31 times a l day before meals. losartan 2020-0 Yes 50mg QD Take 50 mg [facility] (COZAAR) 50 4-[address] MG tablet 18:05: daily. Hospit a 31 l meloxicam 2020-0 Yes 15mg QD Take 15 mg [facility] (MOBIC) 15 4-[address] mg tablet 18:05: daily. Hospit a 31 l omeprazole 2020-0 Yes 20mg QD Take 20 mg M ethodi (PriLOSEC) 4-[address] 20 MG 18:05: daily. Hospita capsule 31 l tamsulosin 2020-0 Yes .4mg QD Take 0.4 [facility] (FLOMAX) 4-[address] 0.4 mg 18:05: mouth [facility]osp[facility] capsule 31 daily with l dinner. metFORMIN 2020-0 Yes 500mg Q.5D Take 500 [facility] (GLUCOPHAGE 4-[address] ) 500 mg 18:05: mouth 2 Hospit a tablet 31 (two) l times a day with meals. alogliptin 2020-0 Yes QD Take by Meth regulo 25 mg 4-[address] tablet 18:05: daily. Hospita 31 l atenoloL 2020-0 Yes 25mg QD Take 25 mg [facility] (TENORMIN) 4-[address] 25 MG 18:05: daily. Hospita tablet 31 l atorvastati 2020-0 Yes 40mg QD Take 40 mg [facility] n (LIPITOR) 4-[address] 40 mg 18:05: nightly. Hospita tablet 31 l finasteride 2020-0 Yes 5mg QD Take 5 mg [facility]i (PROSCAR) 5 4-[address] mg tablet 18:05: daily. Hospit a 31 l folic acid 2020-0 Yes 1mg QD Take 1 mg [facility] (FOLVITE) 1 4-[address] MG tablet 18:05: daily. Hospit a 31 l glipiZIDE 2020-0 Yes 10mg Q.5D Take 10 mg [facility] (GLUCOTROL) 4-[address] 10 MG 18:05: (two) Hospita tablet 31 times a l day before meals. losartan 2020-0 Yes 50mg QD Take 50 mg [facility] (COZAAR) 50 4-[address] MG tablet 18:05: daily. Hospit a 31 l meloxicam 2020-0 Yes 15mg QD Take 15 mg [facility] (MOBIC) 15 4-[address] mg tablet 18:05: daily. Hospit a 31 l omeprazole 2020-0 Yes 20mg QD Take 20 mg [facility]i (PriLOSEC) 4-[address] 20 MG 18:05: daily. Hospita capsule 31 l tamsulosin 2020-0 Yes .4mg QD Take 0.4 [facility] (FLOMAX) 4-[address] 0.4 mg 18:05: mouth [facility]osp[facility] capsule 31 daily with l dinner. metFORMIN 2020-0 Yes 500mg Q.5D Take 500 [facility] (GLUCOPHAGE 4-[address] ) 500 mg 18:05: mouth 2 Hospit a tablet 31 (two) l times a day with meals. alogliptin 0 Yes QD Take by Meth regulo 25 mg 4-[address] tablet 18:05: daily. [facility]ospita 31 l atenoloL 0 Yes 25mg QD Take 25 mg [facility] (TENORMIN) 4-[address] 25 MG 18:05: daily. [facility]ospita tablet 31 l atorvastati 0 Yes 40mg QD Take 40 mg [facility] n (LIPITOR) 4-[address] 40 mg 18:05: nightly. Hospita tablet 31 l finasteride 0 Yes 5mg QD Take 5 mg [facility]i (PROSCAR) 5 4-[address] mg tablet 18:05: daily. Hospit a 31 l folic acid 0 Yes 1mg QD Take 1 mg [facility] (FOLVITE) 1 4-[address] MG tablet 18:05: daily. Hospit a 31 l glipiZIDE 2020-0 Yes 10mg Q.5D Take 10 mg [facility] (GLUCOTROL) 4-[address] 10 MG 18:05: (two) Hospita tablet 31 times a l day before meals. losartan 0 Yes 50mg QD Take 50 mg [facility] (COZAAR) 50 4-[address] MG tablet 18:05: daily. Hospit a 31 l meloxicam 2020-0 Yes 15mg QD Take 15 mg [facility] (MOBIC) 15 4-[address] mg tablet 18:05: daily. Hospit a 31 l omeprazole 2020-0 Yes 20mg QD Take 20 mg M [facility]i (PriLOSEC) 4-[address] 20 MG 18:05: daily. [facility]ospita capsule 31 l tamsulosin 2020-0 Yes .4mg QD Take 0.4 [facility] (FLOMAX) 4-[address] 0.4 mg 18:05: mouth [facility]osp[facility] capsule 31 daily with l dinner. metFORMIN 2020-0 Yes 500mg Q.5D Take 500 [facility] (GLUCOPHAGE 4-[address] ) 500 mg 18:05: mouth 2 Hospit a tablet 31 (two) l times a day with meals. alogliptin 2020-0 Yes QD Take by Meth regulo 25 mg 4-[address] tablet 18:05: daily. Hospita 31 l metFORMIN 2020-0 Yes 500mg Q.5D Take 500 [facility] (GLUCOPHAGE 4-[address] ) 500 mg 18:05: mouth 2 Hospit a tablet 31 (two) l times a day with meals. alogliptin 2020-0 Yes QD Take by Meth regulo 25 mg 4-[address] tablet 18:05: daily. [facility]ospita 31 l atenoloL 2020-0 Yes 25mg QD Take 25 mg [facility] (TENORMIN) 4-[address] 25 MG 18:05: daily. Hospita tablet 31 l atorvastati 2020-0 Yes 40mg QD Take 40 mg [facility] n (LIPITOR) 4-[address] 40 mg 18:05: nightly. Hospita tablet 31 l finasteride 2020-0 Yes 5mg QD Take 5 mg M [facility]i (PROSCAR) 5 4-[address] mg tablet 18:05: daily. Hospit a 31 l folic acid 2020-0 Yes 1mg QD Take 1 mg [facility] (FOLVITE) 1 4-[address] MG tablet 18:05: daily. Hospit a 31 l glipiZIDE 2020-0 Yes 10mg Q.5D Take 10 mg [facility] (GLUCOTROL) 4-[address] 10 MG 18:05: (two) Hospita tablet 31 times a l day before meals. losartan 0 Yes 50mg QD Take 50 mg [facility] (COZAAR) 50 4-[address] MG tablet 18:05: daily. Hospit a 31 l meloxicam 0 Yes 15mg QD Take 15 mg [facility] (MOBIC) 15 4-[address] mg tablet 18:05: daily. Hospit a 31 l omeprazole 0 Yes 20mg QD Take 20 mg M [facility]i (PriLOSEC) 4-[address] 20 MG 18:05: daily. Hospita capsule 31 l tamsulosin 0 Yes .4mg QD Take 0.4 [facility] (FLOMAX) 4-[address] 0.4 mg 18:05: mouth [facility]osp[facility] capsule 31 daily with l dinner. atenoloL 0 Yes 25mg QD Take 25 mg [facility] (TENORMIN) 4-[address] 25 MG 18:05: daily. [facility]ospita tablet 31 l atorvastati 0 Yes 40mg QD Take 40 mg [facility] n (LIPITOR) 4-[address] 40 mg 18:05: nightly. Hospita tablet 31 l finasteride 0 Yes 5mg QD Take 5 mg M [facility]i (PROSCAR) 5 4-[address] mg tablet 18:05: daily. Hospit a 31 l folic acid 0 Yes 1mg QD Take 1 mg [facility] (FOLVITE) 1 4-[address] MG tablet 18:05: daily. Hospit a 31 l budesonide- 2020- No 2{puff} Q.5D Inhale 2 [facility] formoteroL 4-16 04-[address] (SYMBICORT) 08:19: 00:00 (two) Hosp rubén 160-4.5 26 :00 times a l mcg/actuati day. on inhaler budesonide- 2020- No 2{puff} Q.5D Inhale 2 [facility] formoteroL 4-16 04-[address] (SYMBICORT) 08:19: 00:00 (two) Hosp rubén 160-4.5 26 :00 times a l mcg/actuati day. on inhaler budesonide- 2020- No 2{puff} Q.5D Inhale 2 [facility] formoteroL 01-24-[address] (SYMBICORT) 08:19: 00:00 (two) Hosp rubén 160-4.5 26 :00 times a l mcg/actuati day. on inhaler azithromyci 2020- No 250mg QD Take 1 [facility] n [facility] (Zithromax 00:00: 00:00 (250 mg [facility] [place]) 250 00 :00 total) by l MG tablet mouth daily. azithromyci 2020- No 250mg QD Take 1 [facility] n [facility]-[address] (Zithromax 00:00: 00:00 (250 mg [facility] [place]) 250 00 :00 total) by l MG tablet mouth daily. azithromyci No 250mg QD Take 1 Me cory[facility] n 11-[address] (Zithromax 00:00: 00:00 (250 mg [facility] [place]) 250 00 :00 total) by l MG tablet mouth daily. Invokana Invokana No 1 Q1D Invokana [place] 100 mg 100 mg 100 mg [facility] tablet Take tablet Take tablet ty 1 tablet 1 tablet Take 1 Hospi ta every day every day tablet l by oral by oral every day Clin ics route. route. by oral route. losartan 50 losartan 50 No 1 Q1D losartan [place] mg tablet mg tablet 50 mg Comm uni Take 1 Take 1 tablet ty tablet tablet Take 1 Hospita every day every day tablet l by oral by oral every day Clin ics route. route. by oral route. meloxicam meloxicam No meloxicam [place] 15 mg 15 mg 15 mg [facility] tablet Take tablet Take tablet ty by oral by oral Take by Hospit a route. route. oral l route. Clinics metformin metformin No 2 BID metformin [place] 500 mg 500 mg 500 mg [facility] tablet Take tablet Take tablet ty 2 tablets 2 tablets Take 2 [facility] twice a day twice a day tablets l by oral by oral twice a Clinic s route. route. day by oral route. methocarbam methocarbam No methocarba [place] ol 750 mg ol 750 mg mol 750 mg [facility] tablet TAKE tablet TAKE tablet ty ONE (1) ONE (1) TAKE ONE Hospi ta TABLET(S) TABLET(S) (1) l BY MOUTH BY MOUTH TABLET(S) Cl inics THREE TIMES THREE TIMES BY MOUTH A DAY A DAY THREE NEEDED. NEEDED. TIMES A DAY NEEDED. omeprazole omeprazole No 1capsul Q1D omeprazole [place] 20 mg 20 mg e(s) 20 mg [facility] capsule,del capsule,del capsule,de ty ayed ayed layed Hospita release release release l Take 1 Take 1 Take 1 Clinics capsule capsule capsule every day every day every day by oral by oral by oral route. route. route. sildenafil sildenafil No 1 Q1D sildenafil [place] 100 mg 100 mg 100 mg [facility] tablet Take tablet Take tablet ty 1 tablet 1 tablet Take 1 Hospi ta every day every day tablet l by oral by oral every day Clin ics route. route. by oral route. tadalafil 5 tadalafil 5 No tadalafil [place] mg tablet mg tablet 5 mg Commu ni TAKE ONE TAKE ONE tablet ty (1) (1) TAKE ONE Hospita TABLET(S) TABLET(S) (1) l BY MOUTH BY MOUTH TABLET(S) Cl inics ONCE A DAY. ONCE A DAY. BY MOUTH ONCE A DAY. tamsulosin tamsulosin No 1capsul Q1D tamsulosin [place] 0.4 mg 0.4 mg e(s) 0.4 mg [facility] capsule capsule capsule ty Take 1 Take 1 Take 1 Hospita capsule capsule capsule l every day every day every day Clinics by oral by oral by oral route. route. route. tramadol 50 tramadol 50 No tramadol [place] mg tablet mg tablet 50 mg Comm uni TAKE ONE TAKE ONE tablet ty (1) TABLET (1) TABLET TAKE ONE Hospita EVERY 4 TO EVERY 4 TO (1) TABLET l 6 HOURS BY 6 HOURS BY EVERY 4 TO Clinics ORAL ROUTE ORAL ROUTE 6 HOURS BY NEEDED. NEEDED. ORAL ROUTE NEEDED. alendronate alendronate No alendronat [place] 70 mg 70 mg e 70 mg [facility] tablet TAKE tablet TAKE tablet ty ONE (1) ONE (1) TAKE ONE Hospi ta TABLET(S) TABLET(S) (1) l BY MOUTH BY MOUTH TABLET(S) Cl inics EVERY WEK. EVERY WEK. BY MOUTH EVERY WEK. alogliptin alogliptin No 1 Q1D alogliptin [place] 25 mg 25 mg 25 mg [facility] tablet Take tablet Take tablet ty 1 tablet 1 tablet Take 1 Hospi ta every day every day tablet l by oral by oral every day Clin ics route. route. by oral route. Aspir-81 mg Aspir-81 mg No 1 Q1D Aspir-81 [place] tablet,garland tablet,garland mg C ommuni yed release yed release tablet,del ty Take 1 Take 1 ayed Hospita tablet tablet release l every day every day Take 1 Cli nics by oral by oral tablet route. route. every day by oral route. atenolol 25 atenolol 25 No 1 Q1D atenolol [place] mg tablet mg tablet 25 mg Comm uni Take 1 Take 1 tablet ty tablet tablet Take 1 Hospita every day every day tablet l by oral by oral every day Clin ics route. route. by oral route. atorvastati atorvastati No 1 Q1D atorvastat [place] n 80 mg n 80 mg in 80 mg Commu ni tablet Take tablet Take tablet ty 1 tablet 1 tablet Take 1 Hospi ta every day every day tablet l by oral by oral every day Clin ics route. route. by oral route. budesonide- budesonide- No budesonide [place] formoterol formoterol -formotero [facility] HFA 160 HFA 160 l HFA 160 ty mcg-4.5 mcg-4.5 mcg-4.5 Hospit a mcg/actuati mcg/actuati mcg/actuat l on aerosol on aerosol ion Cli nics inhaler inhaler aerosol INHALE TWO INHALE TWO inhaler (2) PUFF(S) (2) PUFF(S) INHALE TWO BY MOUTH BY MOUTH (2) TWICE A TWICE A PUFF(S) BY DAY. DAY. MOUTH TWICE A DAY. cyanocobala cyanocobala No 1mL cyanocobal [place] min (vit min (vit south (vit Co [facility]i B-12) 1,000 B-12) 1,000 B-12) ty mcg/mL mcg/mL 1,000 Hospita injection injection mcg/mL l solution solution injection Cl inics Inject 1 mL Inject 1 mL solution every month every month Inject 1 by by mL every subcutaneou subcutaneou month by s route. s route. subcutaneo us route. finasteride finasteride No 1 Q1D finasterid [place] 5 mg tablet 5 mg tablet e 5 mg [facility] Take 1 Take 1 tablet ty tablet tablet Take 1 Hospita every day every day tablet l by oral by oral every day Clin ics route. route. by oral route. folic acid folic acid No 1 Q1D folic acid [place] 1 mg tablet 1 mg tablet 1 mg C ommuni Take 1 Take 1 tablet ty tablet tablet Take 1 Hospita every day every day tablet l by oral by oral every day Clin ics route. route. by oral route. glipizide glipizide No 2 Q1D glipizide [place] 10 mg 10 mg 10 mg [facility] tablet Take tablet Take tablet ty 2 tablets 2 tablets Take 2 [facility] every day every day tablets l by oral by oral every day Clin ics route. route. by oral route. hydrochloro hydrochloro No hydrochlor [place] thiazide 25 thiazide 25 othiazide [facility] mg tablet mg tablet 25 mg ty TAKE ONE TAKE ONE tablet Hospi ta (1) (1) TAKE ONE l TABLET(S) TABLET(S) (1) Clini cs BY MOUTH BY MOUTH TABLET(S) EVERY DAY EVERY DAY BY MOUTH NEEDED. NEEDED. EVERY DAY NEEDED. hydrocodone hydrocodone No hydrocodon [place] 10 10 e 10 [facility] mg-acetamin mg-acetamin mg-acetami ty ophen 325 ophen 325 nophen 325 Hospita mg tablet mg tablet mg tablet l TAKE ONE TAKE ONE TAKE ONE Cli nics (1) (1) (1) TABLET(S) TABLET(S) TABLET(S) BY MOUTH BY MOUTH BY MOUTH EVERY FOUR EVERY FOUR EVERY FOUR HOURS HOURS HOURS NEEDED. NEEDED. NEEDED. hydroxychlo hydroxychlo No hydroxychl [place] roquine 200 roquine 200 oroquine [facility] mg tablet mg tablet 200 mg ty TAKE ONE TAKE ONE tablet Hospi ta (1) (1) TAKE ONE l TABLET(S) TABLET(S) (1) Clini cs BY MOUTH BY MOUTH TABLET(S) TWICE A DAY TWICE A DAY BY MOUTH FOR 5 DAYS. FOR 5 DAYS. TWICE A DAY FOR 5 DAYS. Invokana Invokana No 1 Q1D Invokana [place] [facility] 100 mg 100 mg 100 mg [facility] tablet Take tablet Take tablet ty 1 tablet 1 tablet Take 1 Hospi ta every day every day tablet l by oral by oral every day Clin ics route. route. by oral route. losartan 50 losartan 50 No 1 Q1D losartan [place] mg tablet mg tablet 50 mg [facility] Take 1 Take 1 tablet ty tablet tablet Take 1 Hospita every day every day tablet l by oral by oral every day Clin ics route. route. by oral route. meloxicam meloxicam No meloxicam [place] 15 mg 15 mg 15 mg Communi tablet Take tablet Take tablet ty by oral by oral Take by Hospit a route. route. oral l route. Clinics metformin metformin No 2 BID metformin [place] 500 mg 500 mg 500 mg Communi tablet Take tablet Take tablet ty 2 tablets 2 tablets Take 2 [facility] twice a day twice a day tablets l by oral by oral twice a Clinic s route. route. day by oral route. alogliptin alogliptin No alogliptin [facility] 25 mg 25 mg 25 mg da tablet TAKE tablet TAKE tablet Medical ONE (1) ONE (1) TAKE ONE Group TABLET(S) TABLET(S) (1) BY MOUTH BY MOUTH TABLET(S) ONCE A DAY. ONCE A DAY. BY MOUTH ONCE A DAY. methocarbam methocarbam No methocarba [place] ol 750 mg ol 750 mg mol 750 mg [facility]i tablet TAKE tablet TAKE tablet ty ONE (1) ONE (1) TAKE ONE Hospi ta TABLET(S) TABLET(S) (1) l BY MOUTH BY MOUTH TABLET(S) Cl inics THREE TIMES THREE TIMES BY MOUTH A DAY A DAY THREE NEEDED. NEEDED. TIMES A DAY NEEDED. alprazolam alprazolam No alprazolam [facility] 0.5 mg 0.5 mg 0.5 mg da tablet TAKE tablet TAKE tablet Medical 1 TABLET 3 1 TABLET 3 TAKE 1 G roup TIMES A DAY TIMES A DAY TABLET 3 BY ORAL BY ORAL TIMES A ROUTE ROUTE DAY BY NEEDED. NEEDED. ORAL ROUTE NEEDED. omeprazole omeprazole No 1capsul Q1D omeprazole [place] 20 mg 20 mg e(s) 20 mg [facility]i capsule,del capsule,del capsule,de ty ayed ayed layed Hospita release release release l Take 1 Take 1 Take 1 Clinics capsule capsule capsule every day every day every day by oral by oral by oral route. route. route. sildenafil sildenafil No 1 Q1D sildenafil [place] 100 mg 100 mg 100 mg Communi tablet Take tablet Take tablet ty 1 tablet 1 tablet Take 1 Hospi ta every day every day tablet l by oral by oral every day Clin ics route. route. by oral route. aspirin 325 aspirin 325 No 1 Q1D aspirin [facility] mg tablet mg tablet 325 mg da Take 1 Take 1 tablet Medical tablet tablet Take 1 Group every day every day tablet by oral by oral every day route. route. by oral route. tadalafil 5 tadalafil 5 No tadalafil [place] mg tablet mg tablet 5 mg Commu ni TAKE ONE TAKE ONE tablet ty (1) (1) TAKE ONE Hospita TABLET(S) TABLET(S) (1) l BY MOUTH BY MOUTH TABLET(S) Cl inics ONCE A DAY. ONCE A DAY. BY MOUTH ONCE A DAY. tamsulosin tamsulosin No 1capsul Q1D tamsulosin [place] 0.4 mg 0.4 mg e(s) 0.4 mg [facility]i capsule capsule capsule ty Take 1 Take 1 Take 1 Hospita capsule capsule capsule l every day every day every day Clinics by oral by oral by oral route. route. route. atenolol 25 atenolol 25 No atenolol [facility] mg tablet mg tablet 25 mg da TAKE ONE TAKE ONE tablet Medic al (1) (1) TAKE ONE Group TABLET(S) TABLET(S) (1) BY MOUTH BY MOUTH TABLET(S) ONCE A DAY. ONCE A DAY. BY MOUTH ONCE A DAY. tramadol 50 tramadol 50 No 1 Q5H tramadol [place] mg tablet mg tablet 50 mg Comm uni Take 1 Take 1 tablet ty tablet tablet Take 1 Hospita every 4-6 every 4-6 tablet l hours by hours by every 4-6 Cl inics oral route oral route hours by as needed. as needed. oral route as needed. atorvastati atorvastati No atorvastat [place] n 40 mg n 40 mg in 40 mg da tablet TAKE tablet TAKE tablet Medical ONE (1) ONE (1) TAKE ONE Group TABLET(S) TABLET(S) (1) BY MOUTH AT BY MOUTH AT TABLET(S) BEDTIME. BEDTIME. BY MOUTH AT BEDTIME. alendronate alendronate No alendronat [place] 70 mg 70 mg e 70 mg [facility] tablet TAKE tablet TAKE tablet ty ONE (1) ONE (1) TAKE ONE Hospi ta TABLET(S) TABLET(S) (1) l BY MOUTH BY MOUTH TABLET(S) Cl inics EVERY WEK. EVERY WEK. BY MOUTH EVERY WEK. budesonide- budesonide- No budesonide [facility] formoterol formoterol -formotero da HFA 160 HFA 160 l HFA 160 Medi johanna mcg-4.5 mcg-4.5 mcg-4.5 Group mcg/actuati mcg/actuati mcg/actuat on aerosol on aerosol ion inhaler inhaler aerosol INHALE TWO INHALE TWO inhaler (2) PUFF(S) (2) PUFF(S) INHALE TWO BY MOUTH BY MOUTH (2) TWICE A TWICE A PUFF(S) BY DAY. DAY. MOUTH TWICE A DAY. alogliptin alogliptin No 1 Q1D alogliptin [place] 25 mg 25 mg 25 mg [facility] tablet Take tablet Take tablet ty 1 tablet 1 tablet Take 1 Hospi ta every day every day tablet l by oral by oral every day Clin ics route. route. by oral route. diclofenac diclofenac No diclofenac [facility] sodium 75 sodium 75 sodium 75 da mg mg mg Medical tablet,garland tablet,garland tablet,del Group yed release yed release ayed TAKE 1 TAKE 1 release TABLET TABLET TAKE 1 TWICE A DAY TWICE A DAY TABLET BY ORAL BY ORAL TWICE A ROUTE. ROUTE. DAY BY ORAL ROUTE. alprazolam alprazolam No alprazolam [place] 0.5 mg 0.5 mg 0.5 mg Communi tablet TAKE tablet TAKE tablet ty 1 TABLET 3 1 TABLET 3 TAKE 1 H ospita TIMES A DAY TIMES A DAY TABLET 3 l BY ORAL BY ORAL TIMES A Clinic s ROUTE ROUTE DAY BY NEEDED. NEEDED. ORAL ROUTE NEEDED. finasteride finasteride No finasterid [facility] 5 mg tablet 5 mg tablet e 5 mg da TAKE ONE TAKE ONE tablet Medic al (1) (1) TAKE ONE Group TABLET(S) TABLET(S) (1) BY MOUTH BY MOUTH TABLET(S) ONCE A DAY. ONCE A DAY. BY MOUTH ONCE A DAY. Aspir-81 mg Aspir-81 mg No 1 Q1D Aspir-81 [place] tablet,garland tablet,garland mg C [facility]i yed release yed release tablet,del ty Take 1 Take 1 ayed Hospita tablet tablet release l every day every day Take 1 Cli nics by oral by oral tablet route. route. every day by oral route. folic acid folic acid No folic acid [facility] 1 mg tablet 1 mg tablet 1 mg d a TAKE ONE TAKE ONE tablet Medic al (1) (1) TAKE ONE Group TABLET(S) TABLET(S) (1) BY MOUTH BY MOUTH TABLET(S) ONCE A DAY. ONCE A DAY. BY MOUTH ONCE A DAY. atenolol 25 atenolol 25 No 1 Q1D atenolol [place] mg tablet mg tablet 25 mg Comm uni Take 1 Take 1 tablet ty tablet tablet Take 1 Hospita every day every day tablet l by oral by oral every day Clin ics route. route. by oral route. gabapentin gabapentin No gabapentin [facility] 300 mg 300 mg 300 mg da capsule capsule capsule Medica l TAKE ONE TAKE ONE TAKE ONE [facility] up (1) (1) (1) CAPSULE(S) CAPSULE(S) CAPSULE(S) BY MOUTH BY MOUTH BY MOUTH THREE TIMES THREE TIMES THREE A DAY. A DAY. TIMES A DAY. atorvastati atorvastati No 1 Q1D atorvastat [place] n 80 mg n 80 mg in 80 mg Commu ni tablet Take tablet Take tablet ty 1 tablet 1 tablet Take 1 Hospi ta every day every day tablet l by oral by oral every day Clin ics route. route. by oral route. glipizide glipizide No glipizide [facility] 10 mg 10 mg 10 mg da tablet TAKE tablet TAKE tablet Medical TWO (2) TWO (2) TAKE TWO Group TABLET(S) TABLET(S) (2) BY MOUTH BY MOUTH TABLET(S) TWICE A DAY TWICE A DAY BY MOUTH BEFORE BEFORE TWICE A MEALS. MEALS. DAY BEFORE MEALS. budesonide- budesonide- No budesonide [place] formoterol formoterol -formotero Commun[facility] HFA 160 HFA 160 l HFA 160 ty mcg-4.5 mcg-4.5 mcg-4.5 Hospit a mcg/actuati mcg/actuati mcg/actuat l on aerosol on aerosol ion Cli nics inhaler inhaler aerosol INHALE TWO INHALE TWO inhaler (2) PUFF(S) (2) PUFF(S) INHALE TWO BY MOUTH BY MOUTH (2) TWICE A TWICE A PUFF(S) BY DAY. DAY. MOUTH TWICE A DAY. glyburide 5 glyburide 5 No 1 TID glyburide [facility] mg tablet mg tablet 5 mg da Take 1 Take 1 tablet Medical tablet 3 tablet 3 Take 1 Group times a day times a day tablet 3 by oral by oral times a route for route for day by 90 days. 90 days. oral route for 90 days. cyanocobala cyanocobala No 1mL cyanocobal [place] min (vit min (vit south (vit Co mmuni B-12) 1,000 B-12) 1,000 B-12) ty mcg/mL mcg/mL 1,000 Hospita injection injection mcg/mL l solution solution injection Cl inics Inject 1 mL Inject 1 mL solution every month every month Inject 1 by by mL every subcutaneou subcutaneou month by s route. s route. subcutaneo us route. finasteride finasteride No 1 Q1D finasterid [place] 5 mg tablet 5 mg tablet e 5 mg Communi Take 1 Take 1 tablet ty tablet tablet Take 1 Hospita every day every day tablet l by oral by oral every day Clin ics route. route. by oral route. hydrochloro hydrochloro No hydrochlor [facility] thiazide 25 thiazide 25 othiazide da mg tablet mg tablet 25 mg Medi johanna TAKE ONE TAKE ONE tablet Group (1) (1) TAKE ONE TABLET(S) TABLET(S) (1) BY MOUTH BY MOUTH TABLET(S) EVERY DAY EVERY DAY BY MOUTH NEEDED. NEEDED. EVERY DAY NEEDED. folic acid folic acid No 1 Q1D folic acid [place] 1 mg tablet 1 mg tablet 1 mg C [facility] Take 1 Take 1 tablet ty tablet tablet Take 1 Hospita every day every day tablet l by oral by oral every day Clin ics route. route. by oral route. glipizide glipizide No 2 Q1D glipizide [place] 10 mg 10 mg 10 mg Communi tablet Take tablet Take tablet ty 2 tablets 2 tablets Take 2 [facility] every day every day tablets l by oral by oral every day Clin ics route. route. by oral route. Januvia 100 Januvia 100 No 1 Q1D Januvia [facility] mg tablet mg tablet 100 mg da Take 1 Take 1 tablet Medical tablet tablet Take 1 Group every day every day tablet by oral by oral every day route. route. by oral route. hydrochloro hydrochloro No hydrochlor [place] thiazide 25 thiazide 25 othiazide [facility] mg tablet mg tablet 25 mg ty TAKE ONE TAKE ONE tablet Hospi ta (1) (1) TAKE ONE l TABLET(S) TABLET(S) (1) Clini cs BY MOUTH BY MOUTH TABLET(S) EVERY DAY EVERY DAY BY MOUTH NEEDED. NEEDED. EVERY DAY NEEDED. losartan losartan No 1 Q1D losartan [facility] 100 mg 100 mg 100 mg da tablet Take tablet Take tablet Medical 1 tablet 1 tablet Take 1 Group every day every day tablet by oral by oral every day route. route. by oral route. hydrocodone hydrocodone No hydrocodon [place] 10 10 e 10 Communi mg-acetamin mg-acetamin mg-acetami ty ophen 325 ophen 325 nophen 325 Hospita mg tablet mg tablet mg tablet l TAKE ONE TAKE ONE TAKE ONE Cli nics (1) (1) (1) TABLET(S) TABLET(S) TABLET(S) BY MOUTH BY MOUTH BY MOUTH EVERY FOUR EVERY FOUR EVERY FOUR HOURS HOURS HOURS NEEDED. NEEDED. NEEDED. hydroxychlo hydroxychlo No hydroxychl [place] roquine 200 roquine 200 oroquine Commun[facility] mg tablet mg tablet 200 mg ty TAKE ONE TAKE ONE tablet Hospi ta (1) (1) TAKE ONE l TABLET(S) TABLET(S) (1) Clini cs BY MOUTH BY MOUTH TABLET(S) TWICE A DAY TWICE A DAY BY MOUTH FOR 5 DAYS. FOR 5 DAYS. TWICE A DAY FOR 5 DAYS. losartan 50 losartan 50 No losartan [facility] mg tablet mg tablet 50 mg da TAKE ONE TAKE ONE tablet Medic al (1) (1) TAKE ONE Group TABLET(S) TABLET(S) (1) BY MOUTH BY MOUTH TABLET(S) ONCE A DAY. ONCE A DAY. BY MOUTH ONCE A DAY. meloxicam meloxicam No meloxicam [facility] metformin metformin No metformin [facility] 1,000 mg 1,000 mg 1,000 mg da tablet TAKE tablet TAKE tablet Medical ONE (1) ONE (1) TAKE ONE Group TABLET(S) TABLET(S) (1) BY MOUTH BY MOUTH TABLET(S) TWICE A DAY TWICE A DAY BY MOUTH WITH MEALS. WITH MEALS. TWICE A DAY WITH MEALS. metformin metformin No 1 TID metformin [facility] 500 mg 500 mg 500 mg da tablet Take tablet Take tablet Medical 1 tablet 3 1 tablet 3 Take 1 G roup times a day times a day tablet 3 by oral by oral times a route for route for day by 90 days. 90 days. oral route for 90 days. methocarbam methocarbam No methocarba [facility] ol 750 mg ol 750 mg mol 750 mg da tablet TAKE tablet TAKE tablet Medical ONE (1) ONE (1) TAKE ONE Group TABLET(S) TABLET(S) (1) BY MOUTH BY MOUTH TABLET(S) EVERY EIGHT EVERY EIGHT BY MOUTH HOURS HOURS EVERY NEEDED FOR NEEDED FOR EIGHT MUSCLE MUSCLE HOURS SPASMS. SPASMS. NEEDED FOR MUSCLE SPASMS. omeprazole omeprazole No omeprazole [facility] 20 mg 20 mg 20 mg da capsule,del capsule,del capsule,de Medical ayed ayed layed Group release release release TAKE ONE TAKE ONE TAKE ONE (1) (1) (1) CAPSULE(S) CAPSULE(S) CAPSULE(S) BY MOUTH BY MOUTH BY MOUTH BEFORE BEFORE BEFORE BREAKFAST. BREAKFAST. BREAKFAST. oxycodone oxycodone No oxycodone [facility] 10 mg 10 mg 10 mg da tablet TAKE tablet TAKE tablet Medical ONE (1) ONE (1) TAKE ONE Group TABLET TABLET (1) TABLET NEEDED NEEDED NEEDED ORALLY ORALLY ORALLY EVERY 6 HRS EVERY 6 HRS EVERY 6 FOR 7 DAYS. FOR 7 DAYS. HRS FOR 7 DAYS. tadalafil 5 tadalafil 5 No tadalafil [facility] mg tablet mg tablet 5 mg da TAKE ONE TAKE ONE tablet Medic al (1) (1) TAKE ONE Group TABLET(S) TABLET(S) (1) BY MOUTH BY MOUTH TABLET(S) ONCE A DAY. ONCE A DAY. BY MOUTH ONCE A DAY. tamsulosin tamsulosin No tamsulosin [facility] 0.4 mg 0.4 mg 0.4 mg da capsule capsule capsule Medica l TAKE ONE TAKE ONE TAKE ONE [facility] up (1) (1) (1) CAPSULE(S) CAPSULE(S) CAPSULE(S) BY MOUTH BY MOUTH BY MOUTH ONCE A DAY. ONCE A DAY. ONCE A DAY. tramadol 50 tramadol 50 No tramadol [facility] mg tablet mg tablet 50 mg da TAKE 1 TAKE 1 tablet Medical TABLET TABLET TAKE 1 Group EVERY 4-6 EVERY 4-6 TABLET HOURS BY HOURS BY EVERY 4-6 ORAL ROUTE ORAL ROUTE HOURS BY NEEDED. NEEDED. ORAL ROUTE NEEDED. Immunizations Ordered Immunization Filled Immunization Date Status Commen Source Name Name SARS-COV-2 SARS-COV-2 2020-12-11 Completed [place] [facility] (COVID-19) vaccine, (COVID-19) vaccine, 00:00:00 [facility] Clin[facility] UNSPECIFIED UNSPECIFIED SARS-COV-2 SARS-COV-2 2020-12-11 Completed [place] [facility] ty (COVID-19) vaccine, (COVID-19) vaccine, 00:00:00 Hospital Clinics UNSPECIFIED UNSPECIFIED SARS-COV-2 SARS-COV-2 2020-11-20 Completed [place] [facility] ty (COVID-19) vaccine, (COVID-19) vaccine, 00:00:00 Hospital Clinics UNSPECIFIED UNSPECIFIED SARS-COV-2 SARS-COV-2 2020-11-20 Completed [place] [facility] ty (COVID-19) vaccine, (COVID-19) vaccine, 00:00:00 Hospital Clinics UNSPECIFIED UNSPECIFIED Remdesivir 2020-11-06 [facility] 2020-[facility]-06 [facility] 2020-11-06 [facility] Rem[facility] 2020-11-06 [facility] Rem[facility] 2020-11-05 [facility] Remdesivir 2020-11-05 [facility] Remdesivir 2020-11-05 [facility] Rem[facility] 2020-11-05 [facility] influenza, influenza, 2020-07-25 Completed [place] [facility] ty injectable, injectable, 00:[facility] quadrivalent quadrivalent influenza, influenza, 2020-07-25 Completed [place] [facility] ty injectable, injectable, 00:[facility] quadrivalent quadrivalent influenza, influenza, 2020-07-25 Completed [place] [facility] ty injectable, injectable, 00:00:00 Hospital Cli nics quadrivalent quadrivalent influenza, influenza, 2020-07-25 Completed [place] Commun[facility] ty injectable, injectable, 00:00:00 Hospital Cli nics quadrivalent quadrivalent influenza, high dose influenza, high 2015-07-10 Completed [place] seasonal dose seasonal 00:00:00 Medical [facility] up Vital Signs Vital Name Observation Time Observation Value Comments Source Height/Length 2021-10-28 10:05:28 187 cm Measured Weight Dosing 2021-10-28 10:05:28 100 kg Height/Length 2021-10-28 10:05:25 187 cm Measured Weight Dosing 2021-10-28 10:05:25 100 kg Height/Length 2021-10-28 10:05:21 187 cm Measured Weight Dosing 2021-10-28 10:05:21 100 kg BP Diastolic 2021-10-23 00:00:00 79 mm[Hg] [facility] Height 2021-10-23 00:00:00 74 [in_i] [facility] BMI (Body Mass 2021-10-23 00:00:00 29.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 BP Systolic 2021-10-23 00:00:00 129 mm[Hg] [facility] Body Weight 2021-10-23 00:00:00 232 [lb_av] [facility] BP Diastolic 2021-08-28 00:00:00 77 mm[Hg] [facility] Height 2021-08-28 00:00:00 74 [in_i] [facility] BMI (Body Mass 2021-08-28 00:00:00 29.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 BP Systolic 2021-08-28 00:00:00 131 mm[Hg] [facility] Body Weight 2021-08-28 00:00:00 232 [lb_av] [facility] BP Diastolic 2021-07-31 00:00:00 80 mm[Hg] [facility] Height 2021-07-31 00:00:00 74 [in_i] [facility] BMI (Body Mass 2021-07-31 00:00:00 29.5 kg/m2 [facility] Medical Index) Group BP Systolic 2021-07-31 00:00:00 140 mm[Hg] [facility] Body Weight 2021-07-31 00:00:00 230 [lb_av] [facility] BP Diastolic 2021-04-29 00:00:00 89 mm[Hg] [facility] Height 2021-04-29 00:00:00 74 [in_i] [facility] BMI (Body Mass 2021-04-29 00:00:00 29.5 kg/m2 [facility] Medical Index) Group BP Systolic 2021-04-29 00:00:00 145 mm[Hg] [facility] Body Weight 2021-04-29 00:00:00 230 [lb_av] [facility] BP Diastolic 2021-02-11 00:00:00 80 mm[Hg] [facility] s Height 2021-02-11 00:00:00 74 [in_i] [facility] s BMI (Body Mass 2021-02-11 00:00:00 29.1 kg/m2 [facility] Clinic s BP Systolic 2021-02-11 00:00:00 138 mm[Hg] [facility] s Body Weight 2021-02-11 00:00:00 3632 [oz_av] [facility] s BP Diastolic 2020-12-25 00:00:00 70 mm[Hg] [facility] s Height 2020-12-25 00:00:00 74 [in_i] [facility] s BMI (Body Mass 2020-12-25 00:00:00 28.6 kg/m2 [facility] Clinic s BP Systolic 2020-12-25 00:00:00 114 mm[Hg] [facility] Body Weight 2020-12-25 00:00:00 3568 [oz_av] [facility] s BP Diastolic 2020-07-23 00:00:00 72 mm[Hg] [facility] Height 2020-07-23 00:00:00 74 [in_i] [facility] BMI (Body Mass 2020-07-23 00:00:00 29.8 kg/m2 [facility] Medical Index) Group BP Systolic 2020-07-23 00:00:00 160 mm[Hg] [facility] Body Weight 2020-07-23 00:00:00 232 [lb_av] [facility] Height/Length 2020-02-01 12:43:34 Measured Height/Length 2020-02-01 12:16:05 Measured Weight Dosing 2020-02-01 12:16:05 BP Diastolic 2019-08-24 00:00:00 80 mm[Hg] [facility] Height 2019-08-24 00:00:00 74 [in_i] [facility] BMI (Body Mass 2019-08-24 00:00:00 28.6 kg/m2 [facility] Medical Index) Group BP Systolic 2019-08-24 00:00:00 140 mm[Hg] [facility] Body Weight 2019-08-24 00:00:00 223 [lb_av] [facility] Height 2019-08-01 00:00:00 74 [in_i] [facility] BMI (Body Mass 2019-08-01 00:00:00 28.6 kg/m2 [facility] Medical Index) Group Body Weight 2019-08-01 00:00:00 223 [lb_av] [facility] BMI (Body Mass 2019-07-25 00:00:00 28.5 kg/m2 [facility] Medical Index) Group BP Systolic 2019-07-25 00:00:00 130 mm[Hg] [facility] Body Weight 2019-07-25 00:00:00 222 [lb_av] [facility] BP Diastolic 2019-07-25 00:00:00 80 mm[Hg] [facility] Height 2019-07-25 00:00:00 74 [in_i] [facility] BP Diastolic 2019-06-15 00:00:00 76 mm[Hg] [facility] Height 2019-06-15 00:00:00 74 [in_i] [facility] BMI (Body Mass 2019-06-15 00:00:00 28.4 kg/m2 [facility]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 BP Systolic 2019-06-15 00:00:00 136 mm[Hg] [facility] Body Weight 2019-06-15 00:00:00 221 [lb_av] [facility] Systolic (mm Hg) 2021-06-24 21:39:00 Jose Antonio [facility] Diastolic (mm Hg) 2021-06-24 21:39:00 [facility] Respitory Rate 2021-06-24 21:39:00 [facility] Temperature Oral (F) 2021-06-24 17:00:00 98.1 F [facility] Respitory Rate 2021-06-24 17:00:00 [facility] [place] Respitory Rate 2021-06-24 16:00:00 [facility] Systolic (mm Hg) 2021-06-24 16:00:00 Jose Antonio [facility] Diastolic (mm Hg) 2021-06-24 16:00:00 [facility] Systolic (mm Hg) 2021-06-24 15:00:00 [facility] Diastolic (mm Hg) 2021-06-24 15:00:00 [facility] [place] Temperature Oral (F) 2021-06-24 13:00:00 97.9 F [facility] Temperature Oral (F) 2021-06-23 18:10:00 97.8 F [facility] Respitory Rate 2021-06-23 09:00:00 [facility] [place] Systolic (mm Hg) 2021-06-23 09:00:00 [facility] [place] Diastolic (mm Hg) 2021-06-23 09:00:00 [facility] Respitory Rate 2021-06-23 08:00:00 [facility] [place] Systolic (mm Hg) 2021-06-23 08:00:00 [facility] Diastolic (mm Hg) 2021-06-23 08:00:00 [facility] [place] Respitory Rate 2021-06-23 07:00:00 [facility] [place] Systolic (mm Hg) 2021-06-23 07:00:00 [facility] [place] Diastolic (mm Hg) 2021-06-23 07:00:00 [facility] [place] Temperature Oral (F) 2021-06-23 04:29:00 98.7 F [facility] Height 2021-06-22 11:12:00 187.96 cm [facility] Weight 2021-06-22 11:12:00 [facility] BMI Calculated 2021-06-22 11:12:00 [facility] Height 2021-06-21 17:20:00 187.96 cm [facility] BMI Calculated 2021-06-21 17:20:00 [facility] [place] Weight 2021-06-21 17:20:00 [facility] Heart Rate 2021-06-21 17:20:00 [facility] Temperature Oral (F) 2021-06-21 17:20:00 [facility] 2021-01-28 22:00:00 145 mm[Hg] [facility] pressure Diastolic blood 2021-01-28 22:00:00 68 mm[Hg] [facility] pressure Heart rate 2021-01-28 22:00:00 81 /min [facility] Respiratory rate 2021-01-28 22:00:00 18 /min [facility] Oxygen saturation in 2021-01-28 21:30:00 94 /min [facility] Arterial blood by Pulse oximetry Body temperature 2021-01-28 20:38:00 36.39 Latonya [facility] Body weight 2021-01-28 19:50:27 95.709 kg Stated [facility] BMI 2021-01-28 19:50:27 27.09 kg/m2 [facility] Procedures Procedure Date / Time Performing Clinician Source Performed XR, hip, unilateral 2021-10-23 00:00:00 [facility] XR, knee, 1 or 2 view 2021-10-23 00:00:00 [facility] XR, hip, unilateral, 2 or 2021-08-28 00:00:00 [facility] XR, femur, 2 or more view 2021-07-31 00:00:00 [facility] US, duplex, carotid artery 2021-01-30 00:00:00 [facility] CV LEFT HEART CATH 2021-01-28 20:07:30 [facility] CV SELECTIVE CORONARY 2021-01-28 20:07:30 [facility] ANGIOGRAPHY CV UNLISTED ICER AIR CONDITIONING 2021-01-28 20:07:30 [facility] PROCEDURE ACTIVATED CLOTTING TIME 2021-01-28 19:24:00 [facility] ESTIMATED GFR 2021-01-28 14:50:00 [facility] CBC HEMOGRAM 2021-01-28 14:50:00 [facility] POC PANEL 2021-01-28 14:50:00 [facility] ECG PRE/POST OP 2021-01-28 14:08:35 [facility] COVID-19 QUALITATIVE 2021-01-24 22:29:00 [facility] RT-PCR CV CTA TAVR WORKUP W 2021-01-22 19:53:56 [facility] CONTRAST AND FFR ANALYSIS POC CREATININE 2021-01-22 19:32:00 [facility] ESTIMATED GFR 2021-01-22 19:32:00 [facility] Cardiac Catheterization 2021-01-22 00:00:00 [facility] US, echocardiogram 2020-12-16 00:00:00 [facility] XR, chest, 2 view 2020-12-16 00:00:00 [facility] Eye Surgery 2020-04-24 00:00:00 [facility] Hernia Repair [facility] Appendectomy [facility] Cataract Surg W/iol 1 [facility] Tonsillectomy [facility] Plan of Care Planned Activity Planned Date Details Comments Source Future Scheduled 2022-11-11 COVID-19 VACCINE (#1) [facility] Test 10:29:50 [code = COVID-19 VACCINE (#1)] Future Scheduled 2022-11-11 65+ PNEUMOCOCCAL [facility] Test 10:29:50 VACCINE (1 - PCV) [code = 65+ PNEUMOCOCCAL VACCINE (1 - PCV)] Future Scheduled 2022-11-11 DIABETES: RETINAL EYE [facility] Test 10:29:50 EXAM [code = DIABETES: RETINAL EYE EXAM] Future Scheduled 2022-11-11 DIABETIC FOOT EXAM [facility] Test 10:29:50 [code = DIABETIC FOOT EXAM] Future Scheduled 2022-11-11 URINE [facility]CROALBUMIN [facility] Test 10:29:50 [code = URINE MICROALBUMIN] Future Scheduled 2022-11-11 [facility]atitis C [facility] Test 10:29:50 (procedure) [code = 465253122] Future Scheduled 2022-11-11 SHINGLES VACCINES (1 [facility] Test 10:29:50 of 2) [code = SHINGLES VACCINES (1 of 2)] Future Scheduled 2022-11-11 [facility] Test 10:29:50 [code = COLONOSCOPY SCREENING] Future Scheduled 2022-11-11 INFLUENZA VACCINE [facility] Test 10:29:50 [code = INFLUENZA VACCINE] Future Scheduled 2021-11-13 COVID-19 VACCINE (1) [facility] Test 06:44:09 [code = COVID-19 VACCINE (1)] Future Scheduled 2021-11-13 65+ PNEUMOCOCCAL [facility] Test 06:44:09 VACCINE (1 of 2 - PPSV23) [code = 65+ PNEUMOCOCCAL VACCINE (1 of 2 - PPSV23)] Future Scheduled 2021-11-13 DIABETES: RETINAL EYE [facility] Test 06:44:09 EXAM [code = DIABETES: RETINAL EYE EXAM] Future Scheduled 2021-11-13 DIABETIC FOOT EXAM [facility] Test 06:44:09 [code = DIABETIC FOOT EXAM] Future Scheduled 2021-11-13 URINE [facility]ALBUMIN [facility] Test 06:44:09 [code = URINE MICROALBUMIN] Future Scheduled 2021-11-13 [facility] C [facility] Test 06:44:09 (procedure) [code = 423372782] Future Scheduled 2021-11-13 [facility] Test 06:44:09 [code = COLONOSCOPY SCREENING] Future Scheduled 2021-11-13 SHINGLES VACCINES (#1) [facility] Test 06:44:09 [code = SHINGLES VACCINES (#1)] Future Scheduled 2021-11-13 [facility] Test 06:44:09 malignant neoplasm of lung (procedure) [code = 847739951] Future Scheduled 2021-11-13 IN[facility]UENZA VACCINE [facility] Test 06:44:09 [code = INFLUENZA VACCINE] Future Scheduled 2021-11-13 COVID-19 VACCINE (1) [facility] Test 06:44:09 [code = COVID-19 VACCINE (1)] Future Scheduled 2021-11-13 65+ P[facility]UMOCOCCAL [facility] Test 06:44:09 VACCINE (1 of 2 - PPSV23) [code = 65+ PNEUMOCOCCAL VACCINE (1 of 2 - PPSV23)] Future Scheduled 2021-11-13 DIABETES: RETINAL EYE [facility] Test 06:44:09 EXAM [code = DIABETES: RETINAL EYE EXAM] Future Scheduled 2021-11-13 DIABETIC FOOT EXAM [facility] Test 06:44:09 [code = DIABETIC FOOT EXAM] Future Scheduled 2021-11-13 [facility] Test 06:44:09 [code = URINE MICROALBUMIN] Future Scheduled 2021-11-13 Hepatitis C screening [facility] Test 06:44:09 (procedure) [code = 852131364] Future Scheduled 2021-11-13 COLONOSCOPY SCREENING [facility] Test 06:44:09 [code = COLONOSCOPY SCREENING] Future Scheduled 2021-11-13 SHINGLES [facility]ACCINES (#[facility]) [facility] Test 06:44:09 [code = SHINGLES VACCINES (#1)] Future Scheduled 2021-11-13 [facility] Test 06:44:09 malignant neoplasm of lung (procedure) [code = 778600100] Future Scheduled 2021-11-13 INFLUENZA VACCINE [facility] Test 06:44:09 [code = INFLUENZA VACCINE] Future Scheduled 2021-11-12 COVID-19 VACCINE (1) [facility] Test 00:16:56 [code = COVID-19 VACCINE (1)] Future Scheduled 2021-11-12 65+ [facility]OCOCCAL [facility] Test 00:16:56 VACCINE (1 of 2 - PPSV23) [code = 65+ PNEUMOCOCCAL VACCINE (1 of 2 - PPSV23)] Future Scheduled 2021-11-12 DIABETES: RETINAL EYE [facility] Test 00:16:56 EXAM [code = DIABETES: RETINAL EYE EXAM] Future Scheduled 2021-11-12 DIABETIC FOOT EXAM [facility] Test 00:16:56 [code = DIABETIC FOOT EXAM] Future Scheduled 2021-11-12 [facility] Test 00:16:56 [code = URINE MICROALBUMIN] Future Scheduled 2021-11-12 [facility] Test 00:16:56 (procedure) [code = 503650746] Future Scheduled 2021-11-12 [facility] Test 00:16:56 [code = COLONOSCOPY SCREENING] Future Scheduled 2021-11-12 SHINGLES VACCINES (#1) [facility] Test 00:16:56 [code = SHINGLES VACCINES (#1)] Future Scheduled 2021-11-12 [facility] Test 00:16:56 malignant neoplasm of lung (procedure) [code = 511926287] Future Scheduled 2021-11-12 INFLUENZA VACCINE [facility] Test 00:16:56 [code = INFLUENZA VACCINE] Encounters Start End Encounter Admission Attending Care Care Encounter Source Date/Time Date/Time Type Type Clinicians Facility Department ID 2021-11-06 Outpatient 3 [id number] ENC[facility] REF [id number] [facility] 12:53:40 [facility] [place] [facility] 2021-10-28 Inpatient Donavon Acuna [facility] 12 [id number] . 10:05:[address] [facility] 2021-09-21 Outpatient [facility] [id number] [place] 01:01:35 [facility] 2021-12-30 2021-12-30 Outpatient Rhina WE[place] [facility] [id number] [place] 04:55:00 04:55:00 0322 [facility] 2021-10-23 2021-10-23 [place] - [address] [place] 00:00:00 00:00:00 Discovery Pepper 0113 coreen MD: 600 [facility] [address], [place] [address] , Ph. 2021-10-09 2021-10-09 [place] [id number] [place] 11:04:00 11:04:00 1230 [facility] 2021-07-07 2021-09-01 Outpatient NORMA HAWLEY ENCGEN [id number] ENCGEN 00:00:00 00:00:00 ADMISSION FANY 2021-08-28 2021-08-28 [place] - [address] [place] 00:00:00 00:00:00 Discovery Pepper 1118 coreen MD: 600 [facility] [address], [place] [address] , Ph. 2021-08-07 2021-08-07 Telephone Wade Cedillo 1.2.840.1 [id number] Methodi 00:00:00 00:00:[address] 3.430.2.7 Hospit a .3.867468 l .8 2021-07-31 2021-07-31 Kavon Lantigua [facility] [place] - [address] 21 [place] 00:00:00 00:00:00 Discovery Pepper 1021 coreen MD: [address] [place] [address] [address], [place] [address] , Ph. 2021-07-18 2021-07-18 Abiola Dahl 1.2.840.1 [id number] Methodi 00:00:00 00:00:00 Only Joy 91007.1.[address] 3.430.2.7 Hospit a .3.886663 l .8 2021-06-21 2021-06-24 Inpatient [facility] [id number] Memoria 17:15:00 22:49:[address] 2021-06-21 2021-06-24 Inpatient [facility] [id number] Memoria 17:15:00 22:49:[address] 2021-06-21 2021-06-24 Inpatient Sage MORENO, [facility] 9367 [facility] 17:48:00 17:49:00 ERNESTO 2021-06-21 2021-06-24 Outpatient Tiffanie [facility] [id number] 12:15:00 17:49:00 Ernesto 67 2021-06-21 2021-06-21 Outpatient FELIX, [facility] [place]ARONA 9370 [facility] 12:15:00 23:59:00 CLARISSE 2021-06-21 2021-06-21 Outpatient Tiffanie [facility] [id number] 12:15:00 12:15:00 Ernesto 2021-06-21 2021-06-21 Outpatient BARTOLO_Jazzmine [facility] [id number] 0210 [place] 08:39:00 08:39:00 911 [facility] 2021-05-24 2021-05-24 Outpatient [facility] [id number] [place] 03:40:00 03:40:00 0814 [facility] 2021-04-29 2021-04-29 Kavon Rhina [facility] [place] - [address] 21 [place] 00:00:00 00:00:00 Discovery Pepper 0720 coreen MD: 600 [facility] [address], [place] [address] , Ph. 2021-04-17 2021-04-17 Outpatient [facility]ina [facility] [id number] [place] 12:25:00 12:25:00 0708 [facility] 2021-03-08 2021-03-08 Outpatient KENARCISO_Jazzmine [facility] [id number] 0210 [place] 01:03:00 01:03:00 529 [facility] 2021-02-11 2021-02-11 Outpatient BARTOLO_Jazzmine [facility] [id number] 0210 [place] 03:11:00 03:11:00 504 [facility] 2021-02-11 2021-02-11 Outpatient Fiona Mcfarland [facility] 1e0 [id number] 00:00:00 00:00:00 Mary [id number] 2021-02-11 2021-02-11 Fiona Hernandez [facility] [place] 504 [place] 00:00:00 00:00:00 Jace [facility]farland MD: [address] [facility] [address] l [address], [facility], [address] [place] , Ph. 2021-02-05 2021-02-05 Telephone Ana Paula, 1.2.840.1 [id number] 2100 [id number] Methodi 00:00:00 00:00:[address] 3.430.2.7 Hospit a .3.514273 l .8 2021-01-28 2021-01-28 [facility] Joc[facility]ne Mar 1.2.840.1 [id number] 2 [id number] Methodi 23:59:00 23:59:00 Encounter Alexey 35837.1.[address] 3.430.2.7 Hospit a .3.108247 l .8 2021-01-28 2021-01-28 Hospital Jocelyne Mar 1.2.840.1 [id number] 2 [id number] Methodi 08:10:00 18:05:00 Encounter Alexey 16389.1.[address] 3.430.2.7 Hospit a .3.264829 l .8 2021-01-28 2021-01-28 Surgery Ned, Jocelyne 1.2.840.1 [id number] 21 [id number] Methodi 11:08:00 12:08:[address] 3.430.2.7 Hospit a .3.460763 l .8 2021-01-28 2021-01-28 Prep for Jocelyne Mar 1.2.840.1 [id number] 2 [id number] Methodi 00:00:00 00:00:00 Surgery Alexey 14580.1.[address] 3.430.2.7 Hospit a .3.873968 l .8 2021-01-28 2021-01-28 Travel 1.2.840.1 1.2.808.114 0448 [id number] Methodi 00:00:00 00:00:[address] 3.430.2.7 0.2.7.3.698 Ho spita .3.169534 084.8 l .8 2021-01-27 2021-01-27 Travel 1.2.840.1 1.2.838.716 2848 610139 Methodi 00:00:00 00:00:[address] 3.430.2.7 0.2.7.3.698 Ho spita .3.356440 084.8 l .8 2021-01-24 2021-01-24 Lab Jocelyne Mar 1.2.840.1 [id number] Methodi 16:01:39 16:16:[address] 3.430.2.7 Hospit a .3.021440 l .8 2021-01-24 2021-01-24 Travel 1.2.840.1 1.2.816.368 1558 177783 Methodi 00:00:00 00:00:[address] 3.430.2.7 0.2.7.3.698 Ho spita .3.761573 084.8 l .8 2021-01-24 2021-01-24 Orders Jocelyne Mar 1.2.840.1 [id number] Methodi 00:00:00 00:00:00 Only Alexey 33637.1.[address] 3.430.2.7 Hospit a .3.962506 l .8 2021-01-24 2021-01-24 Telephone Hesham 1.2.840.1 [id number] 2099 [id number] Methodi 00:00:00 00:00:[address] 3.430.2.7 Hospit a .3.417744 l .8 2021-01-22 2021-01-22 Outpatient WADE CEDILLO [facility] 2099 [id number] [place] 00:00:00 00:00:[address] 2021-01-22 2021-01-22 Travel 1.2.840.1 1.2.405.280 5582 573592 Methodi 00:00:00 00:00:[address] 3.430.2.7 0.2.7.3.698 Ho spita .3.716389 084.8 l .8 2021-01-16 2021-01-16 Travel 1.2.840.1 1.2.588.577 6300 337369 Methodi 00:00:00 00:00:[address] 3.430.2.7 0.2.7.3.698 Ho spita .3.348359 084.8 l .8 2021-01-16 2021-01-16 Telephone Earnest, 1.2.840.1 [id number] [id number] Methodi 00:00:00 00:00:[address] 3.430.2.7 Hospit a .3.575523 l .8 2021-01-15 2021-01-15 Telemedici Wade Cedillo 1.2.840.1 [id number] Methodi 07:57:58 09:21:50 ne Kyung 26465.1.[address] 3.430.2.7 Hospit a .3.853899 l .8 2021-01-15 2021-01-15 Orders Ana Paula, 1.2.840.1 [id number] 0695 Methodi 00:00:00 00:00:00 Only Aggie 57094.1.[address] 3.430.2.7 Hospit a .3.707054 l .8 2021-01-13 2021-01-13 Orders Ana Paula, 1.2.840.1 [id number] 1528 Methodi 00:00:00 00:00:00 Only Aggie 32020.1.[address] 3.430.2.7 Hospit a .3.375088 l .8 2021-01-13 2021-01-13 Telephone Ana Paula, 1.2.840.1 [id number] 2099 [id number] Methodi 00:00:00 00:00:[address] 3.430.2.7 Hospit a .3.424914 l .8 2021-01-13 2021-01-13 Telephone Ana Paula, 1.2.840.1 [id number] 2099 [id number] Methodi 00:00:00 00:00:[address] 3.430.2.7 Hospit a .3.623665 l .8 2020-12-25 2020-12-25 Outpatient MARY GRACE [facility] [id number] 0210 [place] 01:04:00 01:04:00 317 [facility] 2020-12-25 2020-12-25 Outpatient Fiona Mcfarland [facility] 12e [id number] 00:00:00 00:00:00 Mary [id number] 2020-12-25 2020-12-25 Fiona Hernandez [facility] 317 [place] 00:00:00 00:00:00 Jace Mcfarland MD: [address] [facility] Hosp a [address], Critical access hospital [address], H[facility] [place] [facility] [address] [place] , Ph. 2020-12-03 2020-12-03 Outpatient Rhina [place] G [address] -2020 [place] 11:27:00 11:27:00 0223 [facility] 2020-12-01 2020-12-01 Outpatient MARY GRACE [facility] [id number] 0210 [place] 01:01:00 01:01:00 221 [facility] 2020-11-04 2020-11-06 Inpatient SELVIN ANSARI [facility] 064 2100 [id number] [place] 00:00:00 00:00:[address] 2020-10-23 2020-10-23 Outpatient KEFFER_A [facility] [id number] 0210 [place] 05:53:00 05:53:00 113 [facility] 2020-10-16 2020-10-16 Outpatient KEFFER_A [facility] [id number] 0210 [place] 08:44:00 08:44:00 106 [facility] 2020-08-28 2020-08-28 Outpatient cMcDonald MMG MMG [id number] [place] 02:20:00 02:20:00 1118 [facility] 2020-08-16 2020-08-16 Outpatient cMcDonald MMG MMG [id number] [place] 04:13:00 04:13:00 1106 [facility] 2020-08-01 2020-08-01 Outpatient cMcDonald MMG MMG [id number] [place] 03:53:00 03:53:00 1022 Medical Group 2020-07-23 2020-07-23 [place] cMcDonald MMG [place] - [address] [place] 00:00:00 00:00:00 Discovery Pepper 1013 coreen MD: [address] [place] [address] - [facility] [address], [place] [address] , Ph. 2020-06-07 2020-06-07 Outpatient cMcDonald MMG MMG [id number] [place] 12:58:00 12:58:00 0828 Medical Group 2020-02-01 2020-02-01 Outpatient 3 Donavon Acuna [facility] SHARONA [id number] St. 11:37:00 11:37:00 Donavon Acuna -[address] [facility] 2019-08-24 2019-08-24 [place] - [address] [place] 00:00:00 00:00:00 Discovery Pepper 1114 coreen MD: [address] [place] [address] [address], [place] [address] , Ph. 2019-08-01 2019-08-01 [place]av[place]G [place] - [address] [place] 00:00:00 00:00:00 Discovery Pepper 1022 coreen MD: [address] [place], [place] [address]rda - Suite [address], [place] [address] , Ph. 2019-07-25 2019-07-25 [facility] [place] - [address] [place] 00:00:00 00:00:00 Discovery Pepper 1015 coreen MD: [address] [place], [place] [address]a - Suite [address], [place] [address] , Ph. 2019-06-15 2019-06-15 [facility] [place] [facility] [address] [place] 00:00:00 00:00:00 Discovery Pepper 0905 da MD: [address] [place], [place] [address]a - Suite [address], [place] [address] , Ph. Results Test Description Test Time Test Comments Results Result Comments Source CHEM PANEL 2021-06-24 08:54:00 Test Item Value Reference Range Interpretation Comme nts Glucose Lvl (test code = Glucose Lvl) 210 70-99 [facility] [id number] 08:54:00 Test Item Value Reference Range Interpretation Comments BUN (test code = BUN) 05-01 [facility] [id number] 08:54:00 Test Item Value Reference Range Interpretation Comments Creatinine Lvl (test code = Creatinine 0.68 0.50-1.40 Lvl) [facility] [id number] 08:54:00 Test Item Value Reference Range Interpretation Comments Sodium Lvl (test code = Sodium Lvl) 133 135-145 [facility] [id number] 08:54:00 Test Item Value Reference Range Interpretation Comments Potassium Lvl (test code = Potassium 3.6 3.5-5.1 Lvl) [facility] [id number] 08:54:00 Test Item Value Reference Range Interpretation Comments Glucose Lvl (test code = Glucose Lvl) 210 70-99 [facility] [id number] 08:54:00 Test Item Value Reference Range Interpretation Comments BUN (test code = BUN) 05-01 [place] [id number] 08:54:00 Test Item Value Reference Range Interpretation Comments Creatinine Lvl (test code = Creatinine 0.68 0.50-1.40 Lvl) [place] [id number] 08:54:00 Test Item Value Reference Range Interpretation Comments Sodium Lvl (test code = Sodium Lvl) 133 135-145 [place] 490801-09-14 08:54:00 Test Item Value Reference Range Interpretation Comments Potassium Lvl (test code = Potassium 3.6 3.5-5.1 Lvl) [facility]2021-09-14 08:54:00 Test Item Value Reference Range Interpretation Comments Chloride Lvl (test code = Chloride Lvl) 101 95-109 [facility]2021-09-14 08:54:00 Test Item Value Reference Range Interpretation Comments CO2 (test code = CO2) [place] [id number] 08:54:00 Test Item Value Reference Range Interpretation Comments Calcium Lvl (test code = Calcium Lvl) 8.0 8.5-10.5 [facility]2021-09-14 08:54:00 Test Item Value Reference Range Interpretation Comments Chloride Lvl (test code = Chloride Lvl) 101 95-109 [facility]2021-09-14 08:54:00 Test Item Value Reference Range Interpretation Comments AGAP (test code = AGAP) 10.6 10.0-20.0 [facility]2021-09-14 08:54:00 Test Item Value Reference Range Interpretation Comments eGFR (test code = eGFR) 95 [place] 490801-09-14 08:54:00 Test Item Value Reference Range Interpretation Comments CO2 (test code = CO2) [place] 490801-09-14 08:54:00 Test Item Value Reference Range Interpretation Comments Calcium Lvl (test code = Calcium Lvl) 8.0 8.5-10.5 [place] 490801-09-14 08:54:00 Test Item Value Reference Range Interpretation Comments AGAP (test code = AGAP) 10.6 10.0-20.0 [place] 490801-09-14 08:54:00 Test Item Value Reference Range Interpretation Comments eGFR (test code = eGFR) 95 [place] 473381-09-14 07:31:00 Test Item Value Reference Range Interpretation Comments RDW (test code = RDW) 18.5 11.5-14.5 [place] 473381-09-14 07:31:00 Test Item Value Reference Range Interpretation Comments Platelet (test code = Platelet) 170 133-450 [place] 473381-09-14 07:31:00 Test Item Value Reference Range Interpretation Comments MPV (test code = MPV) 8.5 7.4-10.4 [place] 473381-09-14 07:31:00 Test Item Value Reference Range Interpretation Comments Segs (test code = Segs) 61.7 45.0-75.0 [place] [address]-09-14 07:31:00 Test Item Value Reference Range Interpretation Comments Lymphocytes (test code = Lymphocytes) 27.0 20.0-40.0 [place] 473381-09-14 07:31:00 Test Item Value Reference Range Interpretation Comments Monocytes (test code = Monocytes) 10.2 2.0-12.0 [place] 473381-09-14 07:31:00 Test Item Value Reference Range Interpretation Comments Eosinophils (test code = 0.7 See_Comment [A utomated message] The Eosinophils) system which ge nerated this result tra nsmitted reference range : <=4.0. The reference r swathi was not used to int erpret this result as normal/abnormal . [place] 473381-09-14 07:31:00 Test Item Value Reference Range Interpretation Comments Basophils (test code = 0.4 See_Comment [Aut omated message] The Basophils) system which ge nerated this result tra nsmitted reference range : <=1.0. The reference r swathi was not used to int erpret this result as normal/abnormal . [place] 473381-09-14 07:31:00 Test Item Value Reference Range Interpretation Comments Neutrophils # (test code = Neutrophils 4.8 1.5-8.1 #) [place] 473381-09-14 07:31:00 Test Item Value Reference Range Interpretation Comments Lymphocytes # (test code = Lymphocytes 2.1 1.0-5.5 #) [place] 473381-09-14 07:31:00 Test Item Value Reference Range Interpretation Comments Monocytes # (test code 0.8 See_Comment [Aut omated message] The = Monocytes #) system which generated this result tra nsmitted reference range : <=0.8. The reference r swathi was not used to int erpret this result as normal/abnormal . [id number] 07:31:00 Test Item Value Reference Range Interpretation Comments Eosinophils # (test code 0.1 See_Comment [A utomated message] The = Eosinophils #) system whic h generated this result tra nsmitted reference range : <=0.5. The reference r swathi was not used to int erpret this result as normal/abnormal . [id number] 07:31:00 Test Item Value Reference Range Interpretation Comments Microcyte (test code = 2+ *ABN*(06/24/21 Microcyte) 2:31 AM) [id number] 07:31:00 Test Item Value Reference Range Interpretation Comments WBC (test code = WBC) 7.7 3.7-10.4 [id number] 07:31:00 Test Item Value Reference Range Interpretation Comments RBC (test code = RBC) 3.81 4.70-6.10 [id number] 07:31:00 Test Item Value Reference Range Interpretation Comments Hgb (test code = Hgb) 8.8 14.0-18.0 [id number] 07:31:00 Test Item Value Reference Range Interpretation Comments Hct (test code = Hct) 26.6 42.0-54.0 [id number] 07:31:00 Test Item Value Reference Range Interpretation Comments MCV (test code = MCV) 69.6 80.0-94.0 [id number] 07:31:00 Test Item Value Reference Range Interpretation Comments MCH (test code = MCH) 23.1 pg 27.0-31.0 [id number] 07:31:00 Test Item Value Reference Range Interpretation Comments MCHC (test code = MCHC) 33.2 32.0-36.0 [id number] 07:31:00 Test Item Value Reference Range Interpretation Comments RDW (test code = RDW) 18.5 11.5-14.5 [place] 473381-09-14 07:31:00 Test Item Value Reference Range Interpretation Comments Platelet (test code = Platelet) 170 133-450 [place] 473381-09-14 07:31:00 Test Item Value Reference Range Interpretation Comments MPV (test code = MPV) 8.5 7.4-10.4 [place] 473381-09-14 07:31:00 Test Item Value Reference Range Interpretation Comments Segs (test code = Segs) 61.7 45.0-75.0 [place] 473381-09-14 07:31:00 Test Item Value Reference Range Interpretation Comments Lymphocytes (test code = Lymphocytes) 27.0 20.0-40.0 [place] 473381-09-14 07:31:00 Test Item Value Reference Range Interpretation Comments Monocytes (test code = Monocytes) 10.2 2.0-12.0 [place] 473381-09-14 07:31:00 Test Item Value Reference Range Interpretation Comments Eosinophils (test code = 0.7 See_Comment [A utomated message] The Eosinophils) system which ge nerated this result tra nsmitted reference range : <=4.0. The reference r swathi was not used to int erpret this result as normal/abnormal . [place] 473381-09-14 07:31:00 Test Item Value Reference Range Interpretation Comments Basophils (test code = 0.4 See_Comment [Aut omated message] The Basophils) system which ge nerated this result tra nsmitted reference range : <=1.0. The reference r swathi was not used to int erpret this result as normal/abnormal . [place] [id number] 07:31:00 Test Item Value Reference Range Interpretation Comments Neutrophils # (test code = Neutrophils 4.8 1.5-8.1 #) [place] [id number] 07:31:00 Test Item Value Reference Range Interpretation Comments Lymphocytes # (test code = Lymphocytes 2.1 1.0-5.5 #) [place] [id number] 07:31:00 Test Item Value Reference Range Interpretation Comments Monocytes # (test code 0.8 See_Comment [Aut omated message] The = Monocytes #) system which generated this result tra nsmitted reference range : <=0.8. The reference r swathi was not used to int erpret this result as normal/abnormal . [facility] [facility]qepDWBOIMCVUZ7429-[facility] 07:31:00 Test Item Value Reference Range Interpretation Comments Eosinophils # (test code 0.1 See_Comment [A utomated message] The = Eosinophils #) system whic h generated this result tra nsmitted reference range : <=0.5. The reference r swathi was not used to int erpret this result as normal/abnormal . [facility]IqqusjnIDMZJHDACL2183-25-56 07:31:00 Test Item Value Reference Range Interpretation Comments Microcyte (test code = 2+ *ABN*(06/24/21 Microcyte) 2:31 AM) [facility]KmkjqhgBPAVODCWTP6304-32-44 07:31:00 Test Item Value Reference Range Interpretation Comments WBC (test code = WBC) 7.7 3.7-10.4 [facility]DvcqbyjUMVUOSCPPR5815-14-81 07:31:00 Test Item Value Reference Range Interpretation Comments RBC (test code = RBC) 3.81 4.70-6.10 [facility]UdqvkgxGMTTLSKZQS1974-80-48 07:31:00 Test Item Value Reference Range Interpretation Comments Hgb (test code = Hgb) 8.8 14.0-18.0 [facility]stFppsemyXFWGJIPNIK8506-95-23 07:31:00 Test Item Value Reference Range Interpretation Comments Hct (test code = Hct) 26.6 42.0-54.0 [facility]IvkzzvoAGYSXVWYYQ4000-27-95 07:31:00 Test Item Value Reference Range Interpretation Comments MCV (test code = MCV) 69.6 80.0-94.0 [facility]stFwzhksbVYJPCJBGGW6348-07-73 07:31:00 Test Item Value Reference Range Interpretation Comments MCH (test code = MCH) 23.1 pg 27.0-31.0 [facility]IyhnurrTPLKMRRTEL7151-67-50 07:31:00 Test Item Value Reference Range Interpretation Comments MCHC (test code = MCHC) 33.2 32.0-36.0 [facility]2021-09-13 17:47:00 Test Item Value Reference Range Interpretation Comments Glucose Lvl (test code = Glucose Lvl) 286 70-99 [facility]2021-09-13 17:47:00 Test Item Value Reference Range Interpretation Comments BUN (test code = BUN) 17 05-01 [place] 490801-09-13 17:47:00 Test Item Value Reference Range Interpretation Comments Creatinine Lvl (test code = Creatinine 0.75 0.50-1.40 Lvl) [place] 490801-09-13 17:47:00 Test Item Value Reference Range Interpretation Comments Sodium Lvl (test code = Sodium Lvl) 126 135-145 [place] 490801-09-13 17:47:00 Test Item Value Reference Range Interpretation Comments Potassium Lvl (test code = Potassium 3.9 3.5-5.1 Lvl) [place] 490801-09-13 17:47:00 Test Item Value Reference Range Interpretation Comments Chloride Lvl (test code = Chloride Lvl) 93 95-109 [place] 490801-09-13 17:47:00 Test Item Value Reference Range Interpretation Comments CO2 (test code = CO2) 23 24-32 [place] 490801-09-13 17:47:00 Test Item Value Reference Range Interpretation Comments Calcium Lvl (test code = Calcium Lvl) 8.3 8.5-10.5 [place] 490801-09-13 17:47:00 Test Item Value Reference Range Interpretation Comments AGAP (test code = AGAP) 13.9 10.0-20.0 [place] 490801-09-13 17:47:00 Test Item Value Reference Range Interpretation Comments eGFR (test code = eGFR) 92 [place] 490801-09-13 17:47:00 Test Item Value Reference Range Interpretation Comments Osmolality (test code = Osmolality) 282 280-300 [place] 490801-09-13 17:47:00 Test Item Value Reference Range Interpretation Comments Glucose Lvl (test code = Glucose Lvl) 286 70-99 [place] 490801-09-13 17:47:00 Test Item Value Reference Range Interpretation Comments BUN (test code = BUN) 17 05-01 [place] 490801-09-13 17:47:00 Test Item Value Reference Range Interpretation Comments Creatinine Lvl (test code = Creatinine 0.75 0.50-1.40 Lvl) [place] 490801-09-13 17:47:00 Test Item Value Reference Range Interpretation Comments Sodium Lvl (test code = Sodium Lvl) 126 135-145 [place] 490801-09-13 17:47:00 Test Item Value Reference Range Interpretation Comments Potassium Lvl (test code = Potassium 3.9 3.5-5.1 Lvl) [place] 490801-09-13 17:47:00 Test Item Value Reference Range Interpretation Comments Chloride Lvl (test code = Chloride Lvl) 93 95-109 [place] 490801-09-13 17:47:00 Test Item Value Reference Range Interpretation Comments CO2 (test code = CO2) 23 24-32 [place] 490801-09-13 17:47:00 Test Item Value Reference Range Interpretation Comments Calcium Lvl (test code = Calcium Lvl) 8.3 8.5-10.5 [place] 490801-09-13 17:47:00 Test Item Value Reference Range Interpretation Comments AGAP (test code = AGAP) 13.9 10.0-20.0 [place] 490801-09-13 17:47:00 Test Item Value Reference Range Interpretation Comments eGFR (test code = eGFR) 92 [place] 490801-09-13 17:47:00 Test Item Value Reference Range Interpretation Comments Osmolality (test code = Osmolality) 282 280-300 [place] 490801-09-13 11:15:00 Test Item Value Reference Range Interpretation Comments Glucose Lvl (test code = Glucose Lvl) 245 70-99 [place] 490801-09-13 11:15:00 Test Item Value Reference Range Interpretation Comments BUN (test code = BUN) 12 7-22 [place] 490801-09-13 11:15:00 Test Item Value Reference Range Interpretation Comments Creatinine Lvl (test code = Creatinine 0.80 0.50-1.40 Lvl) [place] 490801-09-13 11:15:00 Test Item Value Reference Range Interpretation Comments Sodium Lvl (test code = Sodium Lvl) 128 135-145 [place] 490801-09-13 11:15:00 Test Item Value Reference Range Interpretation Comments Potassium Lvl (test code = Potassium 3.9 3.5-5.1 Lvl) [place] 490801-09-13 11:15:00 Test Item Value Reference Range Interpretation Comments Chloride Lvl (test code = Chloride Lvl) 95 95-109 [place] 490801-09-13 11:15:00 Test Item Value Reference Range Interpretation Comments CO2 (test code = CO2) 24 - [place] 490801-09-13 11:15:00 Test Item Value Reference Range Interpretation Comments AGAP (test code = AGAP) 12.9 10.0-20.0 [place] 490801-09-13 11:15:00 Test Item Value Reference Range Interpretation Comments Calcium Lvl (test code = Calcium Lvl) 7.9 8.5-10.5 [place] 490801-09-13 11:15:00 Test Item Value Reference Range Interpretation Comments eGFR (test code = eGFR) 89 [place] 490801-09-13 11:15:00 Test Item Value Reference Range Interpretation Comments Glucose Lvl (test code = Glucose Lvl) 245 70-99 [place] 490801-09-13 11:15:00 Test Item Value Reference Range Interpretation Comments BUN (test code = BUN) 12 7-22 [place] 490801-09-13 11:15:00 Test Item Value Reference Range Interpretation Comments Creatinine Lvl (test code = Creatinine 0.80 0.50-1.40 Lvl) [place] 490801-09-13 11:15:00 Test Item Value Reference Range Interpretation Comments Sodium Lvl (test code = Sodium Lvl) 128 135-145 [place] 490801-09-13 11:15:00 Test Item Value Reference Range Interpretation Comments Potassium Lvl (test code = Potassium 3.9 3.5-5.1 Lvl) [place] 490801-09-13 11:15:00 Test Item Value Reference Range Interpretation Comments Chloride Lvl (test code = Chloride Lvl) 95 95-109 [place] 490801-09-13 11:15:00 Test Item Value Reference Range Interpretation Comments CO2 (test code = CO2) 24 24-32 [place] 490801-09-13 11:15:00 Test Item Value Reference Range Interpretation Comments AGAP (test code = AGAP) 12.9 10.0-20.0 [place] 490801-09-13 11:15:00 Test Item Value Reference Range Interpretation Comments Calcium Lvl (test code = Calcium Lvl) 7.9 8.5-10.5 [place] 490801-09-13 11:15:00 Test Item Value Reference Range Interpretation Comments eGFR (test code = eGFR) 89 [place] 490801-09-13 05:32:00 Test Item Value Reference Range Interpretation Comments Glucose Lvl (test code = Glucose Lvl) 265 70-99 [place] 490801-09-13 05:32:00 Test Item Value Reference Range Interpretation Comments BUN (test code = BUN) 14 7-22 [place] 490801-09-13 05:32:00 Test Item Value Reference Range Interpretation Comments Creatinine Lvl (test code = Creatinine 0.79 0.50-1.40 Lvl) [place] 490801-09-13 05:32:00 Test Item Value Reference Range Interpretation Comments Sodium Lvl (test code = Sodium Lvl) 130 135-145 [place] 490801-09-13 05:32:00 Test Item Value Reference Range Interpretation Comments Potassium Lvl (test code = Potassium 4.0 3.5-5.1 Lvl) [place] 490801-09-13 05:32:00 Test Item Value Reference Range Interpretation Comments Chloride Lvl (test code = Chloride Lvl) 99 95-109 [place] 490801-09-13 05:32:00 Test Item Value Reference Range Interpretation Comments CO2 (test code = CO2) 20 24-32 [place] 490801-09-13 05:32:00 Test Item Value Reference Range Interpretation Comments AGAP (test code = AGAP) 15.0 10.0-20.0 [place] 490801-09-13 05:32:00 Test Item Value Reference Range Interpretation Comments Calcium Lvl (test code = Calcium Lvl) 6.8 8.5-10.5 [place] 490801-09-13 05:32:00 Test Item Value Reference Range Interpretation Comments eGFR (test code = eGFR) 90 [place] 490801-09-13 05:32:00 Test Item Value Reference Range Interpretation Comments Vitamin D, 25-OH, Total (test code = 80 Vitamin D, 25-OH, Total) [facility]WrniiuaLLQVSYWGEX9351-64-01 05:32:00 Test Item Value Reference Range Interpretation Comments WBC (test code = WBC) 8.2 3.7-10.4 [facility]stUbcozrbTXZRVNXMCA4200-39-72 05:32:00 Test Item Value Reference Range Interpretation Comments RBC (test code = RBC) 3.60 4.70-6.10 [facility]stDlyrjvfDEYJEOIJWP7425-76-86 05:32:00 Test Item Value Reference Range Interpretation Comments Hgb (test code = Hgb) 8.3 14.0-18.0 [place] 473381-09-13 05:32:00 Test Item Value Reference Range Interpretation Comments Hct (test code = Hct) 24.7 42.0-54.0 [place] 473381-09-13 05:32:00 Test Item Value Reference Range Interpretation Comments MCV (test code = MCV) 68.7 80.0-94.0 [place] 473381-09-13 05:32:00 Test Item Value Reference Range Interpretation Comments MCH (test code = MCH) 23.0 pg 27.0-31.0 [facility]stBonybyrZPMLFRFCLS4752-72-80 05:32:00 Test Item Value Reference Range Interpretation Comments MCHC (test code = MCHC) 33.5 32.0-36.0 [facility]stQzwfainJUGFAJNGBE6082-67-60 05:32:00 Test Item Value Reference Range Interpretation Comments RDW (test code = RDW) 17.0 11.5-14.5 [facility]stHjggcavJTWKUVBEUU5917-18-36 05:32:00 Test Item Value Reference Range Interpretation Comments Platelet (test code = Platelet) 127 133-450 [facility]stDvptugmRSIYHRUGNN5614-65-03 05:32:00 Test Item Value Reference Range Interpretation Comments MPV (test code = MPV) 8.1 7.4-10.4 [place] 473381-09-13 05:32:00 Test Item Value Reference Range Interpretation Comments Segs (test code = Segs) 83.7 45.0-75.0 [place] 473381-09-13 05:32:00 Test Item Value Reference Range Interpretation Comments Lymphocytes (test code = Lymphocytes) 7.2 20.0-40.0 [place] 473381-09-13 05:32:00 Test Item Value Reference Range Interpretation Comments Monocytes (test code = Monocytes) 9.0 2.0-12.0 [place] 473381-09-13 05:32:00 Test Item Value Reference Range Interpretation Comments Basophils (test code = 0.1 See_Comment [Aut omated message] The Basophils) system which ge nerated this result tra nsmitted reference range : <=1.0. The reference r swathi was not used to int erpret this result as normal/abnormal . [place] 473381-09-13 05:32:00 Test Item Value Reference Range Interpretation Comments Neutrophils # (test code = Neutrophils 6.9 1.5-8.1 #) [place] 473381-09-13 05:32:00 Test Item Value Reference Range Interpretation Comments Lymphocytes # (test code = Lymphocytes 0.6 1.0-5.5 #) [place] 473381-09-13 05:32:00 Test Item Value Reference Range Interpretation Comments Monocytes # (test code 0.7 See_Comment [Aut omated message] The = Monocytes #) system which generated this result tra nsmitted reference range : <=0.8. The reference r swathi was not used to int erpret this result as normal/abnormal . [place] 473381-09-13 05:32:00 Test Item Value Reference Range Interpretation Comments Microcyte (test code = 3+ *NA*(06/23/21 Microcyte) 12:32 AM) [place] 490801-09-13 05:32:00 Test Item Value Reference Range Interpretation Comments Vitamin D, 25-OH, Total (test code = 80 Vitamin D, 25-OH, Total) [place] 490801-09-13 05:32:00 Test Item Value Reference Range Interpretation Comments Glucose Lvl (test code = Glucose Lvl) 265 70-99 [place] 490801-09-13 05:32:00 Test Item Value Reference Range Interpretation Comments BUN (test code = BUN) 14 7-22 [place] 490801-09-13 05:32:00 Test Item Value Reference Range Interpretation Comments Creatinine Lvl (test code = Creatinine 0.79 0.50-1.40 Lvl) [place] 490801-09-13 05:32:00 Test Item Value Reference Range Interpretation Comments Sodium Lvl (test code = Sodium Lvl) 130 135-145 [place] 490801-09-13 05:32:00 Test Item Value Reference Range Interpretation Comments Potassium Lvl (test code = Potassium 4.0 3.5-5.1 Lvl) [place] 490801-09-13 05:32:00 Test Item Value Reference Range Interpretation Comments Chloride Lvl (test code = Chloride Lvl) 99 95-109 [place] 490801-09-13 05:32:00 Test Item Value Reference Range Interpretation Comments CO2 (test code = CO2) 20 24-32 [place] 490801-09-13 05:32:00 Test Item Value Reference Range Interpretation Comments AGAP (test code = AGAP) 15.0 10.0-20.0 [place] 490801-09-13 05:32:00 Test Item Value Reference Range Interpretation Comments Calcium Lvl (test code = Calcium Lvl) 6.8 8.5-10.5 [place] 490801-09-13 05:32:00 Test Item Value Reference Range Interpretation Comments eGFR (test code = eGFR) 90 [place] 473381-09-13 05:32:00 Test Item Value Reference Range Interpretation Comments WBC (test code = WBC) 8.2 3.7-10.4 [place] 473381-09-13 05:32:00 Test Item Value Reference Range Interpretation Comments RBC (test code = RBC) 3.60 4.70-6.10 [place] 473381-09-13 05:32:00 Test Item Value Reference Range Interpretation Comments Hgb (test code = Hgb) 8.3 14.0-18.0 [place] [address]-09-13 05:32:00 Test Item Value Reference Range Interpretation Comments Hct (test code = Hct) 24.7 42.0-54.0 [place] 473381-09-13 05:32:00 Test Item Value Reference Range Interpretation Comments MCV (test code = MCV) 68.7 80.0-94.0 [place] 473381-09-13 05:32:00 Test Item Value Reference Range Interpretation Comments MCH (test code = MCH) 23.0 pg 27.0-31.0 [facility]XlmvsheQMGHCBUKRB1167-84-22 05:32:00 Test Item Value Reference Range Interpretation Comments MCHC (test code = MCHC) 33.5 32.0-36.0 [facility]stBjbyffxWHICIRWTUI1783-31-69 05:32:00 Test Item Value Reference Range Interpretation Comments RDW (test code = RDW) 17.0 11.5-14.5 [facility]stTorgfeuADGUXJVLYQ5772-66-61 05:32:00 Test Item Value Reference Range Interpretation Comments Platelet (test code = Platelet) 127 133-450 [facility]stTplsoasKGFFHOSICM2504-85-72 05:32:00 Test Item Value Reference Range Interpretation Comments MPV (test code = MPV) 8.1 7.4-10.4 [place] 473381-09-13 05:32:00 Test Item Value Reference Range Interpretation Comments Segs (test code = Segs) 83.7 45.0-75.0 [facility]stSytxndhVARZYPDWJM6064-65-54 05:32:00 Test Item Value Reference Range Interpretation Comments Lymphocytes (test code = Lymphocytes) 7.2 20.0-40.0 [facility]stKvtpltqXFQWIRYWVW7632-27-67 05:32:00 Test Item Value Reference Range Interpretation Comments Monocytes (test code = Monocytes) 9.0 2.0-12.0 [facility]stFvplwdeROYKOZHCWT1709-58-57 05:32:00 Test Item Value Reference Range Interpretation Comments Basophils (test code = 0.1 See_Comment [Aut omated message] The Basophils) system which ge nerated this result tra nsmitted reference range : <=1.0. The reference r swathi was not used to int erpret this result as normal/abnormal . [facility]stPatculjGMFORZAXRA1653-30-95 05:32:00 Test Item Value Reference Range Interpretation Comments Neutrophils # (test code = Neutrophils 6.9 1.5-8.1 #) [facility]stBzzdvmbQWQIGCBMIP4594-60-40 05:32:00 Test Item Value Reference Range Interpretation Comments Lymphocytes # (test code = Lymphocytes 0.6 1.0-5.5 #) [facility]stYlinukzSZWIXFTPXG3249-05-64 05:32:00 Test Item Value Reference Range Interpretation Comments Monocytes # (test code 0.7 See_Comment [Aut omated message] The = Monocytes #) system which generated this result tra nsmitted reference range : <=0.8. The reference r swathi was not used to int erpret this result as normal/abnormal . [facility]stAztlaztCPTKMLGEUS4190-19-35 05:32:00 Test Item Value Reference Range Interpretation Comments Microcyte (test code = 3+ *NA*(06/23/21 Microcyte) 12:32 AM) [place] 490801-09-12 23:49:00 Test Item Value Reference Range Interpretation Comments Glucose Lvl (test code = Glucose Lvl) 238 70-99 [place] 490801-09-12 23:49:00 Test Item Value Reference Range Interpretation Comments BUN (test code = BUN) 12 7-22 [place] 490801-09-12 23:49:00 Test Item Value Reference Range Interpretation Comments Creatinine Lvl (test code = Creatinine 0.94 0.50-1.40 Lvl) [place] 490801-09-12 23:49:00 Test Item Value Reference Range Interpretation Comments Sodium Lvl (test code = Sodium Lvl) 126 135-145 [place] 490801-09-12 23:49:00 Test Item Value Reference Range Interpretation Comments Potassium Lvl (test code = Potassium 4.2 3.5-5.1 Lvl) [place] 490801-09-12 23:49:00 Test Item Value Reference Range Interpretation Comments Chloride Lvl (test code = Chloride Lvl) 90 95-109 [place] 490801-09-12 23:49:00 Test Item Value Reference Range Interpretation Comments CO2 (test code = CO2) 24 24-32 [place] 490801-09-12 23:49:00 Test Item Value Reference Range Interpretation Comments AGAP (test code = AGAP) 16.2 10.0-20.0 [place] 490801-09-12 23:49:00 Test Item Value Reference Range Interpretation Comments Calcium Lvl (test code = Calcium Lvl) 8.1 8.5-10.5 [place] 490801-09-12 23:49:00 Test Item Value Reference Range Interpretation Comments eGFR (test code = eGFR) 81 [place] 490801-09-12 23:49:00 Test Item Value Reference Range Interpretation Comments Osmolality (test code = Osmolality) 275 280-300 [place] 917451-09-12 23:49:00 Test Item Value Reference Range Interpretation Comments U Osmolality (test code = U Osmolality) 317 300-800 [place] 917451-09-12 23:49:00 Test Item Value Reference Range Interpretation Comments U Sodium (test code = U Sodium) 20 [place] 917451-09-12 23:49:00 Test Item Value Reference Range Interpretation Comments U Creatinine (test code = U Creatinine) 91.10 [place] 490801-09-12 23:49:00 Test Item Value Reference Range Interpretation Comments Osmolality (test code = Osmolality) 275 280-300 [place] 490801-09-12 23:49:00 Test Item Value Reference Range Interpretation Comments Glucose Lvl (test code = Glucose Lvl) 238 70-99 [place] 490801-09-12 23:49:00 Test Item Value Reference Range Interpretation Comments BUN (test code = BUN) 12 7-22 [place] 490801-09-12 23:49:00 Test Item Value Reference Range Interpretation Comments Creatinine Lvl (test code = Creatinine 0.94 0.50-1.40 Lvl) [place] 490801-09-12 23:49:00 Test Item Value Reference Range Interpretation Comments Sodium Lvl (test code = Sodium Lvl) 126 135-145 [place] 490801-09-12 23:49:00 Test Item Value Reference Range Interpretation Comments Potassium Lvl (test code = Potassium 4.2 3.5-5.1 Lvl) [place] 490801-09-12 23:49:00 Test Item Value Reference Range Interpretation Comments Chloride Lvl (test code = Chloride Lvl) 90 95-109 [place] 490801-09-12 23:49:00 Test Item Value Reference Range Interpretation Comments CO2 (test code = CO2) 24 24-32 [place] 490801-09-12 23:49:00 Test Item Value Reference Range Interpretation Comments AGAP (test code = AGAP) 16.2 10.0-20.0 [place] 490801-09-12 23:49:00 Test Item Value Reference Range Interpretation Comments Calcium Lvl (test code = Calcium Lvl) 8.1 8.5-10.5 [place] 490801-09-12 23:49:00 Test Item Value Reference Range Interpretation Comments eGFR (test code = eGFR) 81 [place] 917451-09-12 23:49:00 Test Item Value Reference Range Interpretation Comments U Osmolality (test code = U Osmolality) 317 300-800 [place] 917451-09-12 23:49:00 Test Item Value Reference Range Interpretation Comments U Sodium (test code = U Sodium) 20 [place] 917451-09-12 23:49:00 Test Item Value Reference Range Interpretation Comments U Creatinine (test code = U Creatinine) 91.10 [place] 490801-09-12 16:28:00 Test Item Value Reference Range Interpretation Comments Glucose Lvl (test code = Glucose Lvl) 158 70-99 [facility]2021-09-12 16:28:00 Test Item Value Reference Range Interpretation Comments BUN (test code = BUN) 9 7-22 [place] 490801-09-12 16:28:00 Test Item Value Reference Range Interpretation Comments Creatinine Lvl (test code = Creatinine 0.68 0.50-1.40 Lvl) [place] 490801-09-12 16:28:00 Test Item Value Reference Range Interpretation Comments Sodium Lvl (test code = Sodium Lvl) 125 135-145 [place] 490801-09-12 16:28:00 Test Item Value Reference Range Interpretation Comments Potassium Lvl (test code = Potassium 4.0 3.5-5.1 Lvl) [place] 490801-09-12 16:28:00 Test Item Value Reference Range Interpretation Comments Chloride Lvl (test code = Chloride Lvl) 91 95-109 [place] 490801-09-12 16:28:00 Test Item Value Reference Range Interpretation Comments CO2 (test code = CO2) 26 24-32 [facility]2021-09-12 16:28:00 Test Item Value Reference Range Interpretation Comments Calcium Lvl (test code = Calcium Lvl) 8.2 8.5-10.5 [place] 490801-09-12 16:28:00 Test Item Value Reference Range Interpretation Comments AGAP (test code = AGAP) 12.0 10.0-20.0 [place] 490801-09-12 16:28:00 Test Item Value Reference Range Interpretation Comments eGFR (test code = eGFR) 95 [place] 490801-09-12 16:28:00 Test Item Value Reference Range Interpretation Comments Glucose Lvl (test code = Glucose Lvl) 158 70-99 [place] 490801-09-12 16:28:00 Test Item Value Reference Range Interpretation Comments BUN (test code = BUN) 9 7-22 [place] 490801-09-12 16:28:00 Test Item Value Reference Range Interpretation Comments Creatinine Lvl (test code = Creatinine 0.68 0.50-1.40 Lvl) [place] 490801-09-12 16:28:00 Test Item Value Reference Range Interpretation Comments Sodium Lvl (test code = Sodium Lvl) 125 135-145 [place] 490801-09-12 16:28:00 Test Item Value Reference Range Interpretation Comments Potassium Lvl (test code = Potassium 4.0 3.5-5.1 Lvl) [place] 490801-09-12 16:28:00 Test Item Value Reference Range Interpretation Comments Chloride Lvl (test code = Chloride Lvl) 91 95-109 [place] 490801-09-12 16:28:00 Test Item Value Reference Range Interpretation Comments CO2 (test code = CO2) 26 24-32 [place] 490801-09-12 16:28:00 Test Item Value Reference Range Interpretation Comments Calcium Lvl (test code = Calcium Lvl) 8.2 8.5-10.5 [place] 490801-09-12 16:28:00 Test Item Value Reference Range Interpretation Comments AGAP (test code = AGAP) 12.0 10.0-20.0 [place] 490801-09-12 16:28:00 Test Item Value Reference Range Interpretation Comments eGFR (test code = eGFR) 95 [place] 473381-09-12 10:31:00 Test Item Value Reference Range Interpretation Comments Segs (test code = Segs) 73.2 45.0-75.0 [place] 473381-09-12 10:31:00 Test Item Value Reference Range Interpretation Comments Lymphocytes (test code = Lymphocytes) 15.9 20.0-40.0 [place] 473381-09-12 10:31:00 Test Item Value Reference Range Interpretation Comments Monocytes (test code = Monocytes) 10.2 2.0-12.0 [facility]IrmehlcJRBICMICVV0390-89-20 10:31:00 Test Item Value Reference Range Interpretation Comments Eosinophils (test code = 0.5 See_Comment [A utomated message] The Eosinophils) system which ge nerated this result tra nsmitted reference range : <=4.0. The reference r swathi was not used to int erpret this result as normal/abnormal . [facility]stLelnqseUNQAAYYKKE0872-37-00 10:31:00 Test Item Value Reference Range Interpretation Comments Basophils (test code = 0.2 See_Comment [Aut omated message] The Basophils) system which ge nerated this result tra nsmitted reference range : <=1.0. The reference r swathi was not used to int erpret this result as normal/abnormal . [facility]stBrttcikJJXNMDGARM5335-30-14 10:31:00 Test Item Value Reference Range Interpretation Comments Neutrophils # (test code = Neutrophils 6.6 1.5-8.1 #) [facility]stNwugqamXIQRIYMZLA3198-30-30 10:31:00 Test Item Value Reference Range Interpretation Comments Lymphocytes # (test code = Lymphocytes 1.4 1.0-5.5 #) [facility]stZrafognIOMBGZHMVP4968-32-05 10:31:00 Test Item Value Reference Range Interpretation Comments Monocytes # (test code 0.9 See_Comment [Aut omated message] The = Monocytes #) system which generated this result tra nsmitted reference range : <=0.8. The reference r swathi was not used to int erpret this result as normal/abnormal . [facility]stUqprjxcRYBJENTOAC1678-73-44 10:31:00 Test Item Value Reference Range Interpretation Comments Microcyte (test code = 3+ *NA*(06/22/21 5:31 Microcyte) AM) [place] 473381-09-12 10:31:00 Test Item Value Reference Range Interpretation Comments WBC (test code = WBC) 9.0 3.7-10.4 [place] 473381-09-12 10:31:00 Test Item Value Reference Range Interpretation Comments RBC (test code = RBC) 4.61 4.70-6.10 [facility]stOzbadewOULACITKSQ1593-16-33 10:31:00 Test Item Value Reference Range Interpretation Comments Hgb (test code = Hgb) 10.4 14.0-18.0 [facility] CenterBwkkzwiLAMJYUQOTV0881-31-88 10:31:00 Test Item Value Reference Range Interpretation Comments Hct (test code = Hct) 31.3 42.0-54.0 [facility] HoustonUdleumrQULCVZZLPW6697-41-04 10:31:00 Test Item Value Reference Range Interpretation Comments MCV (test code = MCV) 68.0 80.0-94.0 [facility] CenterPiturotVIURNNEKRF5801-32-46 10:31:00 Test Item Value Reference Range Interpretation Comments MCH (test code = MCH) 22.6 pg 27.0-31.0 [facility] HoustonRkvyzgkFUJYEDJVGT5336-61-12 10:31:00 Test Item Value Reference Range Interpretation Comments MCHC (test code = MCHC) 33.2 32.0-36.0 [facility] CenterQeediqfRCMKPDNGJL0513-45-78 10:31:00 Test Item Value Reference Range Interpretation Comments RDW (test code = RDW) 17.2 11.5-14.5 [facility] HoustonJhvvllyEVETLQRJWR0597-09-05 10:31:00 Test Item Value Reference Range Interpretation Comments Platelet (test code = Platelet) 158 133-450 [facility] HoustonGrzmblsLHUNBXPVOA2749-37-52 10:31:00 Test Item Value Reference Range Interpretation Comments MPV (test code = MPV) 7.9 7.4-10.4 [facility] [id number] 10:31:00 Test Item Value Reference Range Interpretation Comments Hgb A1C (test code = Hgb A1C) 6.9 [facility] HoustonEkadyipDRNTRLRLLB8766-54-19 10:31:00 Test Item Value Reference Range Interpretation Comments Segs (test code = Segs) 73.2 45.0-75.0 [facility] HoustonWqegtjkOKQEAJFPZZ9246-80-51 10:31:00 Test Item Value Reference Range Interpretation Comments Lymphocytes (test code = Lymphocytes) 15.9 20.0-40.0 [facility] HoustonYidyvxnKULVPILRQY8627-99-64 10:31:00 Test Item Value Reference Range Interpretation Comments Monocytes (test code = Monocytes) 10.2 2.0-12.0 [facility] HoustonRpgpfwxXVNABYECQV9652-32-88 10:31:00 Test Item Value Reference Range Interpretation Comments Eosinophils (test code = 0.5 See_Comment [A utomated message] The Eosinophils) system which ge nerated this result tra nsmitted reference range : <=4.0. The reference r swathi was not used to int erpret this result as normal/abnormal . [facility]stNvxitbjHSHKFXMCOV7847-06-89 10:31:00 Test Item Value Reference Range Interpretation Comments Basophils (test code = 0.2 See_Comment [Aut omated message] The Basophils) system which ge nerated this result tra nsmitted reference range : <=1.0. The reference r swathi was not used to int erpret this result as normal/abnormal . [facility]stKdtjkgeBEBXEZGYEY4618-79-65 10:31:00 Test Item Value Reference Range Interpretation Comments Neutrophils # (test code = Neutrophils 6.6 1.5-8.1 #) [facility]stIgvnaovNRMBDXDHTH1544-50-77 10:31:00 Test Item Value Reference Range Interpretation Comments Lymphocytes # (test code = Lymphocytes 1.4 1.0-5.5 #) [facility]stPaaominRJCHARWHFI4639-77-46 10:31:00 Test Item Value Reference Range Interpretation Comments Monocytes # (test code 0.9 See_Comment [Aut omated message] The = Monocytes #) system which generated this result tra nsmitted reference range : <=0.8. The reference r swathi was not used to int erpret this result as normal/abnormal . [facility]stGzxnsqkEUJDWRVXDF1693-84-22 10:31:00 Test Item Value Reference Range Interpretation Comments Microcyte (test code = 3+ *NA*(06/22/21 5:31 Microcyte) AM) [facility]stCeycytsODBPLQUJWQ9503-73-22 10:31:00 Test Item Value Reference Range Interpretation Comments WBC (test code = WBC) 9.0 3.7-10.4 [facility]stQjggerkXHEVUIAXMT2860-27-77 10:31:00 Test Item Value Reference Range Interpretation Comments RBC (test code = RBC) 4.61 4.70-6.10 [facility]stCbtijjtAKFUOIBTKY9251-92-14 10:31:00 Test Item Value Reference Range Interpretation Comments Hgb (test code = Hgb) 10.4 14.0-18.0 [place] 473381-09-12 10:31:00 Test Item Value Reference Range Interpretation Comments Hct (test code = Hct) 31.3 42.0-54.0 [facility] CenterThkarccCJGTZHGMCY7639-96-78 10:31:00 Test Item Value Reference Range Interpretation Comments MCV (test code = MCV) 68.0 80.0-94.0 [facility] CenterXcdtussQYDVYGOTYK2762-30-71 10:31:00 Test Item Value Reference Range Interpretation Comments MCH (test code = MCH) 22.6 pg 27.0-31.0 [facility] CenterVxtwmaeIGWEKFIRZB9539-49-87 10:31:00 Test Item Value Reference Range Interpretation Comments MCHC (test code = MCHC) 33.2 32.0-36.0 [facility] CenterEvddsxkSTPRPJIDSQ5626-76-91 10:31:00 Test Item Value Reference Range Interpretation Comments RDW (test code = RDW) 17.2 11.5-14.5 [facility] CenterBsprvdmQFTNOHVFCH4395-66-37 10:31:00 Test Item Value Reference Range Interpretation Comments Platelet (test code = Platelet) 158 133-450 [facility] CenterGrricrxNCFJTAZVDD5711-48-69 10:31:00 Test Item Value Reference Range Interpretation Comments MPV (test code = MPV) 7.9 7.4-10.4 [facility] VEQAOQKWY5978-82-99 10:31:00 Test Item Value Reference Range Interpretation Comments Hgb A1C (test code = Hgb A1C) 6.9 [facility] [id number] 06:56:00 Test Item Value Reference Range Interpretation Comments U Chloride (test code = U Chloride) 22 [facility] [id number] 06:56:00 Test Item Value Reference Range Interpretation Comments U Potassium (test code = U Potassium) 39.2 [facility] [id number] 06:56:00 Test Item Value Reference Range Interpretation Comments U Urea (test code = U Urea) 377 [facility] [id number] 06:56:00 Test Item Value Reference Range Interpretation Comments U Chloride (test code = U Chloride) 22 [facility] [id number] 06:56:00 Test Item Value Reference Range Interpretation Comments U Potassium (test code = U Potassium) 39.2 [facility] [id number] 06:56:00 Test Item Value Reference Range Interpretation Comments U Urea (test code = U Urea) 377 [facility] [id number] 22:57:00 Test Item Value Reference Range Interpretation Comments U Sodium (test code = U Sodium) 74 [facility]2021-09-11 22:57:00 Test Item Value Reference Range Interpretation Comments U Osmolality (test code = U Osmolality) 733 300-800 [facility]2021-09-11 22:57:00 Test Item Value Reference Range Interpretation Comments U Sodium (test code = U Sodium) 74 [facility]2021-09-11 22:57:00 Test Item Value Reference Range Interpretation Comments U Osmolality (test code = U Osmolality) 733 300-800 [facility] AND [id number] 18:28:25 Test Item Value Reference Range Interpretation Comments UA Color (test code = Yellow *NA*(06/21/21 UA Color) 1:28 PM) [facility] AND [id number] 18:28:25 Test Item Value Reference Range Interpretation Comments UA Turbidity (test code = Clear (06/21/21 1:28 UA Turbidity) PM) [facility] AND [id number] 18:28:25 Test Item Value Reference Range Interpretation Comments UA Spec Grav (test code = UA Spec 1.021 1 Grav) [facility] AND [id number] 18:28:25 Test Item Value Reference Range Interpretation Comments UA pH (test code = UA pH) 5.0 1 5.0-8.0 [facility] AND [id number] 18:28:25 Test Item Value Reference Range Interpretation Comments UA Protein (test code = UA Negative mg/dL Protein) [facility] AND [id number] 18:28:25 Test Item Value Reference Range Interpretation Comments UA Ketones (test code = UA Ketones) 80 mg/dL [facility] AND [id number] 18:28:25 Test Item Value Reference Range Interpretation Comments UA Bili (test code = Negative *NA*(06/21/21 UA Bili) 1:28 PM) [facility] AND [id number] 18:28:25 Test Item Value Reference Range Interpretation Comments UA Blood (test code = Negative (06/21/21 1:28 UA Blood) PM) [facility] AND [id number] 18:28:25 Test Item Value Reference Range Interpretation Comments UA Urobilinogen (test code = UA no gt 0.1-1.0 Urobilinogen) [facility] AND [id number] 18:28:25 Test Item Value Reference Range Interpretation Comments UA Nitrite (test code Negative (06/21/21 1:28 = UA Nitrite) PM) [facility] AND [id number] 18:28:25 Test Item Value Reference Range Interpretation Comments UA Leuk Est (test Negative (06/21/21 1:28 code = UA Leuk Est) PM) [facility] AND [id number] 18:28:25 Test Item Value Reference Range Interpretation Comments UA Sq Epi (test code = UA Sq Occasional /LPF Epi) [facility] AND [id number] 18:28:25 Test Item Value Reference Range Interpretation Comments UA Mucus (test code = UA Mucus) Few /LPF [facility] AND [id number] 18:28:25 Test Item Value Reference Range Interpretation Comments UA Glucose (test code = UA Glucose) 150mg/dl [facility] AND [id number] 18:28:25 Test Item Value Reference Range Interpretation Comments UA Color (test code = Yellow *NA*(06/21/21 UA Color) 1:28 PM) [facility] AND [id number] 18:28:25 Test Item Value Reference Range Interpretation Comments UA Turbidity (test code = Clear (06/21/21 1:28 UA Turbidity) PM) [facility] AND [id number] 18:28:25 Test Item Value Reference Range Interpretation Comments UA Spec Grav (test code = UA Spec 1.021 1 Grav) [facility] AND [id number] 18:28:25 Test Item Value Reference Range Interpretation Comments UA pH (test code = UA pH) 5.0 1 5.0-8.0 [facility] AND [id number] 18:28:25 Test Item Value Reference Range Interpretation Comments UA Protein (test code = UA Negative mg/dL Protein) [facility] AND [id number] 18:28:25 Test Item Value Reference Range Interpretation Comments UA Ketones (test code = UA Ketones) 80 mg/dL [facility] AND [id number] 18:28:25 Test Item Value Reference Range Interpretation Comments UA Bili (test code = Negative *NA*(06/21/21 UA Bili) 1:28 PM) [facility] AND [id number] 18:28:25 Test Item Value Reference Range Interpretation Comments UA Blood (test code = Negative (06/21/21 1:28 UA Blood) PM) [facility] AND [id number] 18:28:25 Test Item Value Reference Range Interpretation Comments UA Urobilinogen (test code = UA no gt 0.1-1.0 Urobilinogen) [facility] AND [id number] 18:28:25 Test Item Value Reference Range Interpretation Comments UA Nitrite (test code Negative (06/21/21 1:28 = UA Nitrite) PM) [facility] AND [id number] 18:28:25 Test Item Value Reference Range Interpretation Comments UA Leuk Est (test Negative (06/21/21 1:28 code = UA Leuk Est) PM) [facility] AND [id number] 18:28:25 Test Item Value Reference Range Interpretation Comments UA Sq Epi (test code = UA Sq Occasional /LPF Epi) [facility] AND [id number] 18:28:25 Test Item Value Reference Range Interpretation Comments UA Mucus (test code = UA Mucus) Few /LPF [facility] AND [id number] 18:28:25 Test Item Value Reference Range Interpretation Comments UA Glucose (test code = UA Glucose) 150mg/dl [facility] [id number] 17:37:00 Test Item Value Reference Range Interpretation Comments Troponin-I (test code no gt See_Comment [Auto mated message] The = Troponin-I) system which g enerated this result transmit hermilo reference range : <=0.40. The reference r swathi was not used to interpr et this result as cristian l/abnormal. [facility] [id number] 17:37:00 Test Item Value Reference Range Interpretation Comments Coronavirus (COVID-19) Not Detected (06/21/21 MIKAL (test code = 12:37 PM) Coronavirus (COVID-19) MIKAL) [facility] HoustonCARDIAC [id number] 17:37:00 Test Item Value Reference Range Interpretation Comments Troponin-I (test code no gt See_Comment [Auto mated message] The = Troponin-I) system which g enerated this result transmit hermilo reference range : <=0.40. The reference r swathi was not used to interpr et this result as cristian l/abnormal. [facility] HoustonNdruaybRGKMPBLJZC4246-55-74 17:37:00 Test Item Value Reference Range Interpretation Comments Coronavirus (COVID-19) Not Detected (06/21/21 MIKAL (test code = 12:37 PM) Coronavirus (COVID-19) MIKAL) [facility] HoustonCHEM [id number] 17:36:00 Test Item Value Reference Range Interpretation Comments Globulin (test code = Globulin) 2.9 2.7-4.2 [facility] [id number] 17:36:00 Test Item Value Reference Range Interpretation Comments A/G Ratio (test code = A/G Ratio) 1.3 1 0.7-1.6 [facility]stIlkxioeAQHUOZQTHB3672-74-44 17:36:00 Test Item Value Reference Range Interpretation Comments WBC X 10x3 (test code = WBC X 10x3) 12.9 3.7-10.4 [facility]stUemuevvDQRTOWMNLH7932-28-33 17:36:00 Test Item Value Reference Range Interpretation Comments RBC X 10x6 (test code = RBC X 10x6) 4.66 4.70-6.10 [facility]stItjutwwIRZTWLQXPJ9225-48-28 17:36:00 Test Item Value Reference Range Interpretation Comments Hgb (test code = Hgb) 10.4 14.0-18.0 [facility]stZqbgrzbUNTDBXCWTE2908-03-46 17:36:00 Test Item Value Reference Range Interpretation Comments Hct (test code = Hct) 31.7 42.0-54.0 [facility]stBlanbngZBHBVWTBQW3260-34-52 17:36:00 Test Item Value Reference Range Interpretation Comments MCV (test code = MCV) 68.1 80.0-94.0 [place] 473381-09-11 17:36:00 Test Item Value Reference Range Interpretation Comments MCH (test code = MCH) 22.2 pg 27.0-31.0 [facility] CenterTzifialARPXELEUQY0015-08-19 17:36:00 Test Item Value Reference Range Interpretation Comments MCHC (test code = MCHC) 32.6 32.0-36.0 [place] 473381-09-11 17:36:00 Test Item Value Reference Range Interpretation Comments RDW (test code = RDW) 16.9 11.5-14.5 [place] 473381-09-11 17:36:00 Test Item Value Reference Range Interpretation Comments Platelet (test code = Platelet) 163 133-450 [facility]stAxaojqkWHSUQMTTXC2050-11-93 17:36:00 Test Item Value Reference Range Interpretation Comments MPV (test code = MPV) 8.6 7.4-10.4 [place] 473381-09-11 17:36:00 Test Item Value Reference Range Interpretation Comments PT (test code = PT) 13.3 s 12.0-14.7 [place] 473381-09-11 17:36:00 Test Item Value Reference Range Interpretation Comments INR (test code = INR) 1.02 1 0.85-1.17 [id number] 17:36:00 Test Item Value Reference Range Interpretation Comments PTT (test code = PTT) 24.0 s 22.9-35.8 [place] 473381-09-11 17:36:00 Test Item Value Reference Range Interpretation Comments Segs (test code = Segs) 79.6 45.0-75.0 [facility][id number] 17:36:00 Test Item Value Reference Range Interpretation Comments Lymphocytes (test code = Lymphocytes) 12.8 20.0-40.0 [facility] Hill[facility]stYxmngsyKLDJDVWVKU4500-85-97 17:36:00 Test Item Value Reference Range Interpretation Comments Monocytes (test code = Monocytes) 7.1 2.0-12.0 [place] 473381-09-11 17:36:00 Test Item Value Reference Range Interpretation Comments Basophils (test code = 0.4 See_Comment [Aut omated message] The Basophils) system which ge nerated this result tra nsmitted reference range : <=1.0. The reference r swathi was not used to int erpret this result as normal/abnormal . [facility]stDwwupwwHBHKOZLSXG0288-54-32 17:36:00 Test Item Value Reference Range Interpretation Comments Neutrophils # (test code = Neutrophils 10.3 1.5-8.1 #) [place] 473381-09-11 17:36:00 Test Item Value Reference Range Interpretation Comments Lymphocytes # (test code = Lymphocytes 1.7 1.0-5.5 #) [facility]stHavuspeFHRWVTJWKC6022-89-23 17:36:00 Test Item Value Reference Range Interpretation Comments Monocytes # (test code 0.9 See_Comment [Aut omated message] The = Monocytes #) system which generated this result tra nsmitted reference range : <=0.8. The reference r swathi was not used to int erpret this result as normal/abnormal . [facility] HoustonMipnqrvICODDLBJPO0509-33-21 17:36:00 Test Item Value Reference Range Interpretation Comments Microcyte (test code = 3+ *NA*(06/21/21 Microcyte) 12:36 PM) [facility] HoustonShoto [id number] 17:36:00 Test Item Value Reference Range Interpretation Comments ABO/Rh (test code = ABO/Rh) A NEG [facility] CenterWorldV[facility] [id number] 17:36:00 Test Item Value Reference Range Interpretation Comments Antibody Scrn (test Negative (06/21/21 code = Antibody Scrn) 12:36 PM) [facility] [id number] 17:36:00 Test Item Value Reference Range Interpretation Comments Total Protein (test code = Total 6.8 6.4-8.4 Protein) [facility] [id number] 17:36:00 Test Item Value Reference Range Interpretation Comments Albumin Lvl (test code = Albumin Lvl) 3.9 3.5-5.0 [facility] [id number] 17:36:00 Test Item Value Reference Range Interpretation Comments ALANINE AMINOTRANSFERASE 25 See_Comment [A utomated message] (test code = ALANINE The sys tem which AMINOTRANSFERASE) generated this result transmitted ref erence range: <=65. Th e reference range was not used to int erpret this result as normal/abnormal . [facility] CenterHire Jungle [id number] 17:36:00 Test Item Value Reference Range Interpretation Comments ASPARTATE TRANSAMINASE 22 See_Comment [Aut omated message] (test code = ASPARTATE The s ystem which TRANSAMINASE) generated this result transmitted ref erence range: <=37. Th e reference range was not used to interpr et this result as normal/abnormal . [facility]2021-09-11 17:36:00 Test Item Value Reference Range Interpretation Comments Alk Phos (test code = Alk Phos) 52 39-136 [place] 490801-09-11 17:36:00 Test Item Value Reference Range Interpretation Comments Bili Total (test code = Bili Total) 1.2 0.2-1.3 [place] 490801-09-11 17:36:00 Test Item Value Reference Range Interpretation Comments B/C Ratio (test code = B/C Ratio) 11 1 6-25 [place] 490801-09-11 17:36:00 Test Item Value Reference Range Interpretation Comments Globulin (test code = Globulin) 2.9 2.7-4.2 [place] 490801-09-11 17:36:00 Test Item Value Reference Range Interpretation Comments A/G Ratio (test code = A/G Ratio) 1.3 1 0.7-1.6 [place] 473381-09-11 17:36:00 Test Item Value Reference Range Interpretation Comments PT (test code = PT) 13.3 s 12.0-14.7 [place] 473381-09-11 17:36:00 Test Item Value Reference Range Interpretation Comments INR (test code = INR) 1.02 1 0.85-1.17 [place] 473381-09-11 17:36:00 Test Item Value Reference Range Interpretation Comments PTT (test code = PTT) 24.0 s 22.9-35.8 [place] 473381-09-11 17:36:00 Test Item Value Reference Range Interpretation Comments WBC X 10x3 (test code = WBC X 10x3) 12.9 3.7-10.4 [place] 473381-09-11 17:36:00 Test Item Value Reference Range Interpretation Comments RBC X 10x6 (test code = RBC X 10x6) 4.66 4.70-6.10 [place] 473381-09-11 17:36:00 Test Item Value Reference Range Interpretation Comments Hgb (test code = Hgb) 10.4 14.0-18.0 [place] 473381-09-11 17:36:00 Test Item Value Reference Range Interpretation Comments Hct (test code = Hct) 31.7 42.0-54.0 [place] 473381-09-11 17:36:00 Test Item Value Reference Range Interpretation Comments MCV (test code = MCV) 68.1 80.0-94.0 [place] 473381-09-11 17:36:00 Test Item Value Reference Range Interpretation Comments MCH (test code = MCH) 22.2 pg 27.0-31.0 [place] 473381-09-11 17:36:00 Test Item Value Reference Range Interpretation Comments MCHC (test code = MCHC) 32.6 32.0-36.0 [place] 473381-09-11 17:36:00 Test Item Value Reference Range Interpretation Comments RDW (test code = RDW) 16.9 11.5-14.5 [place] 473381-09-11 17:36:00 Test Item Value Reference Range Interpretation Comments Platelet (test code = Platelet) 163 133-450 [facility]stMotibgdFJGSVKPUUD1272-08-46 17:36:00 Test Item Value Reference Range Interpretation Comments MPV (test code = MPV) 8.6 7.4-10.4 [place] 473381-09-11 17:36:00 Test Item Value Reference Range Interpretation Comments Segs (test code = Segs) 79.6 45.0-75.0 [facility] Hill[facility]stXukolipFRRQXNREDS3343-84-08 17:36:00 Test Item Value Reference Range Interpretation Comments Lymphocytes (test code = Lymphocytes) 12.8 20.0-40.0 [place] 473381-09-11 17:36:00 Test Item Value Reference Range Interpretation Comments Monocytes (test code = Monocytes) 7.1 2.0-12.0 [place] 473381-09-11 17:36:00 Test Item Value Reference Range Interpretation Comments Basophils (test code = 0.4 See_Comment [Aut omated message] The Basophils) system which ge nerated this result tra nsmitted reference range : <=1.0. The reference r swathi was not used to int erpret this result as normal/abnormal . [place] 473381-09-11 17:36:00 Test Item Value Reference Range Interpretation Comments Neutrophils # (test code = Neutrophils 10.3 1.5-8.1 #) [facility] [id number] 17:36:00 Test Item Value Reference Range Interpretation Comments Lymphocytes # (test code = Lymphocytes 1.7 1.0-5.5 #) [id number] 17:36:00 Test Item Value Reference Range Interpretation Comments Monocytes # (test code 0.9 See_Comment [Aut omated message] The = Monocytes #) system which generated this result tra nsmitted reference range : <=0.8. The reference r swathi was not used to int erpret this result as normal/abnormal . [facility] [id number] 17:36:00 Test Item Value Reference Range Interpretation Comments Microcyte (test code = 3+ *NA*(06/21/21 Microcyte) 12:36 PM) [facility] [employer] [id number] 17:36:00 Test Item Value Reference Range Interpretation Comments ABO/Rh (test code = ABO/Rh) A NEG [facility] [employer] [id number] 17:36:00 Test Item Value Reference Range Interpretation Comments Antibody Scrn (test Negative (06/21/21 code = Antibody Scrn) 12:36 PM) [facility] [id number] 17:36:00 Test Item Value Reference Range Interpretation Comments Total Protein (test code = Total 6.8 6.4-8.4 Protein) [facility] [employer] [id number] 17:36:00 Test Item Value Reference Range Interpretation Comments Albumin Lvl (test code = Albumin Lvl) 3.9 3.5-5.0 [facility] [employer] [id number] 17:36:00 Test Item Value Reference Range Interpretation Comments ALANINE AMINOTRANSFERASE 25 See_Comment [A utomated message] (test code = ALANINE The sys tem which AMINOTRANSFERASE) generated this result transmitted ref erence range: <=65. Th e reference range was not used to int erpret this result as normal/abnormal . [facility] [employer] [id number] 17:36:00 Test Item Value Reference Range Interpretation Comments ASPARTATE TRANSAMINASE 22 See_Comment [Aut omated message] (test code = ASPARTATE The s ystem which TRANSAMINASE) generated this result transmitted ref erence range: <=37. Th e reference range was not used to interpr et this result as normal/abnormal . [facility] [employer] [id number] 17:36:00 Test Item Value Reference Range Interpretation Comments Alk Phos (test code = Alk Phos) 52 39-136 [facility]2021-09-11 17:36:00 Test Item Value Reference Range Interpretation Comments Bili Total (test code = Bili Total) 1.2 0.2-1.3 [facility]2021-09-11 17:36:00 Test Item Value Reference Range Interpretation Comments B/C Ratio (test code = B/C Ratio) 11 1 6-25 [facility] Pre/Post [id number] 04:25:22 Test Item Value Reference Range Interpretation Comments Ventricular rate (test code = 253) Atrial rate (test code = 255) NM interval (test code = 266) QRSD interval (test code = 260) QT interval (test code = 264) QTC interval (test code = 265) P axis 1 (test code = 267) QRS axis 1 (test code = 268) T wave axis (test code = 270) EKG impression (test Normal sinus rhythm code = 273) with sinus arrhythmia-Inferior infarct , age undetermined-Abnormal ECG-In automated comparison with ECG of 04-NOV-2020 22:50,-No significant change was found- [facility] Pre/Post [id number] 04:25:22 Test Item Value Reference Range Interpretation Comments Ventricular rate (test code = 253) Atrial rate (test code = 255) NM interval (test code = 266) QRSD interval (test code = 260) QT interval (test code = 264) QTC interval (test code = 265) P axis 1 (test code = 267) QRS axis 1 (test code = 268) T wave axis (test code = 270) EKG impression (test Normal sinus rhythm code = 273) with sinus arrhythmia-Inferior infarct , age undetermined-Abnormal ECG-In automated comparison with ECG of 04-NOV-2020 22:50,-No significant change was found- [facility] Pre/Post [id number] 04:25:22 Test Item Value Reference Range Interpretation Comments Ventricular rate (test code = 253) Atrial rate (test code = 255) NM interval (test code = 266) QRSD interval (test code = 260) QT interval (test code = 264) QTC interval (test code = 265) P axis 1 (test code = 267) QRS axis 1 (test code = 268) T wave axis (test code = 270) EKG impression (test Normal sinus rhythm code = 273) with sinus arrhythmia-Inferior infarct , age undetermined-Abnormal ECG-In automated comparison with ECG of 04-NOV-2020 22:50,-No significant change was found- [place] [address] qualitative [id number] 08:08:16 Test Item Value Reference Range Interpretation Comments Interpretation (test Negative results do code = 1710608) not preclude 2019-nCoV infection and should not be used as the sole basis for treatment or other patient management decisions. Negative results must be combined with clinical observations, patient history, and epidemiological information. COVID-19 qualitative Not-Detected Not-Detected RT-PCR result (test code = 54377-4) COVID-19 qualitative See link below for C ase Number: RT-PCR (test code = PDF Lab Report [id number]) [facility]19 qualitative [id number] 08:08:16 Test Item Value Reference Range Interpretation Comments Interpretation (test Negative results do code = 5771868) not preclude 2019-nCoV infection and should not be used as the sole basis for treatment or other patient management decisions. Negative results must be combined with clinical observations, patient history, and epidemiological information. COVID-19 qualitative Not-Detected Not-Detected RT-PCR result (test code = 88470-4) COVID-19 qualitative See link below for C ase Number: RT-PCR (test code = PDF Lab Report [id number]) [facility]-19 qualitative [id number] 08:08:16 Test Item Value Reference Range Interpretation Comments Interpretation (test Negative results do code = 7017685) not preclude 2019-nCoV infection and should not be used as the sole basis for treatment or other patient management decisions. Negative results must be combined with clinical observations, patient history, and epidemiological information. COVID-19 qualitative Not-Detected Not-Detected RT-PCR result (test code = 52379-0) COVID-19 qualitative See link below for C ase Number: RT-PCR (test code = PDF Lab Report [id number]) [facility] AmaxdcfpMJUM-MbK-9 (COVID-19) RNA [Presence] in Respiratory specimen by MIKAL with probe [id number] 03:07:26 Test Item Value Reference Range Interpretation Comments SARS-CoV-2 (COVID-19) RNA Not detected Not-Detected [Presence] in Respiratory specimen by MIKAL with probe detection (test code = 83539-2) [facility]-CoV[facility] (COVID-19) IgG Ab [Presence] in Serum or Plasma by [id number] 06:39:00 Test Item Value Reference Range Interpretation Comments SARS-CoV-2 (COVID-19) IgG Ab Not detected [Presence] in Serum or Plasma by Immunoassay (test code = 99786-2) [facility] [id number] 12:40:40 Test Item Value Reference Range Interpretation Comments Glucose POC (test 232 mg/dL 70-115 H Notify RN or MDIf you code = Glucose POC) consider your patient critically ill, the Aleksandra-Accu Chec k Infrom II meter should not be used for Glucos e determination. Draw a venous Glucose and send to the main Lab for analysis.
[2022-11-11 11:12] LABS: Lymphocytes % 29.3 % (15.3-44.8); MCV 64.6 fL (80-100); MPV 8.3 fL (7.6-11.3); RBC Red Blood Cell Count 5.72 M/uL (4.33-5.43)
[2022-11-11] MEDS ORDERED: NA CHLORIDE 0.9% 1,000 ML ONE (11:12)
[2022-11-11 11:40] LABS: Albumin 3.5 g/dL (3.4-5.0); Bilirubin Total 0.8 mg/dL (0.2-1.0); Potassium 4.3 mmol/L (3.5-5.1); Protein, Total 7.9 g/dL (6.4-8.2)
[2022-11-11 11:42] LABS: Urine Blood 1+ (Negative); Urine Glucose 2+ (Negative); Urine Protein 1+ (Negative); Urine pH 5.5 (5.0-7.0)
[2022-11-11 11:46] LABS: Urine Bacteria None Seen /HPF (<20); Urine Mucus Slight /HPF (None Seen); Urine RBC <5 /HPF (None Seen); Urine WBC Clump Rare /HPF (None Seen)
--- NOTE | 2022-11-11 12:00 | RAD REPORT ---
EXAM DESCRIPTION: RAD - Chest Pa And Lat (2 Views) - 11/11/2022 11:44 am CLINICAL HISTORY: SOB, hypertension, sepsis COMPARISON: None TECHNIQUE: Frontal and lateral views of the chest were obtained. FINDINGS: The lungs are clear of a peripheral mass or consolidation. Interstitial pattern is mildly prominent, believed to be baseline. No significant failure or volume overload. Heart size is normal and central vasculature is within normal limits. No pleural effusion or pneu mothorax seen. No acute bone finding suspected. There is a wedge compression of approximately 30% at the thoracolumbar junction. No associated lytic or blastic change. There is minimal height loss at l ower thoracic vertebral body as well. Overall bones appear osteopenic. Aortic tortuosity is present s lightly widening the mediastinum. No acute aortic finding suspected. IMPRESSION: No acute cardiopulmonary process. Thoracic spine appears osteoporotic with a 30% wedge compression in the vertebral body at the thoraco lumbar junction and slight loss in height in the lower thoracic vertebrae. No associated lytic or james stic changes.
[2022-11-11] MEDS ORDERED: INSULIN -REGULAR HUMAN 50 UNIT/0.5 ML ML ONE (12:05)
[2022-11-11] MEDS ORDERED: NA CHLORIDE 0.9% 500 ML ONE (12:05)
[2022-11-11 12:35] LABS: Anisocytosis 1+; Blood Morphology Comment NOTED (NOT SEEN); Hypochromasia 1+; Platelet Estimate ADEQ; Poikilocytosis 1+; Target Cells 1+; White Blood Cell Scan OK (OK)
--- NOTE | 2022-11-11 14:05 | EDPHYS ---
Physician Documentation [facility] Name: Eduardo Claudio Age: 72 yrs Sex: Male : 1950 Arrival Date: 11/11/2022 Time: 10:30 Bed 15 Private MD: [facility] ED Physician Haseeb Gonzalez HPI: 11/11 11:03 This 72 yrs old Male presents to ER via Wheelchair with complaints of High Blood Sugar, pm1 r/o sepsis, Shortness Of Breath. 11:03 The patient or guardian reports hyperglycemia, 300s range. Onset: The symptoms/episode pm1 began/occurred 3 week(s) ago. Associated signs and symptoms: Pertinent positives: generalized weakness. Current symptoms: In the emergency department the patient's symptoms have improved. The patient has been recently seen by a physician: the patient's primary care provider, earlier today, with similar presenting complaints, and was sent to the [facility] Emergency Department for further evaluation. 72-year-old male presents the ER with complaints of hyperglycemia and generalized weakness. Patient was seen at the [facility] today and sent to the ER for evaluation to rule out possible sepsis. About 3 weeks ago patient reports generalized weakness and urinary changes, odor and change in color. Patient also reports blood sugar elevated in the 300-400 range, normally he is well controlled in the 170s. He called his PCP at that time and was given a prescription for cefuroxime twice daily for 10 days. Patient reports improvement in symptoms after completing his antibiotics. Patient reports 4-5 days after completing the cefuroxime he had a fever and started feeling generalized weakness. So he presented to [facility] ER on 11/06/2022. Had blood work and urine and was given a prescription for Cipro. Patient reports resolution of his fever but reports continued generalized weakness. He presented to the [facility] clinic today with a main complaint of hyperglycemia and was instructed to follow-up in the ER for reevaluation and treatment. Patient also reports shortness of breath that is been chronically present for the past 2 years since COVID infection. Patient without cough or increased shortness of breath. Historical: - PMHx: 10:59 Diabetes mellitus; ss - Immunization history:: Client reports receiving the 2nd dose of the Covid vaccine. - Social history:: Smoking status: Patient/guardian denies using tobacco, but has a distant history of tobacco abuse. ROS: 11:03 Constitutional: Negative for fever, chills, and weight loss, Cardiovascular: Negative pm1 for chest pain, palpitations, and edema. 11:03 Abdomen/GI: Negative for abdominal pain, nausea, vomiting, diarrhea, and constipation, Back: Negative for injury and pain, : Negative for injury, bleeding, discharge, and swelling, MS/Extremity: Negative for injury and deformity, Skin: Negative for injury, rash, and discoloration. 11:03 Respiratory: Positive for shortness of breath, baseline since covid infection 2 years ago, Negative for cough. 11:03 Neuro: Positive for generalized weakness. 11:03 Endocrine: Positive for hyperglycemia. 11:03 All other systems are negative. Exam: 11:03 Constitutional: This is a well developed, well nourished patient who is awake, alert, pm1 and in no acute distress. Head/Face: Normocephalic, atraumatic. 11:03 Back: No spinal tenderness. No costovertebral tenderness. Full range of motion. Skin: Warm, dry with normal turgor. Normal color with no rashes, no lesions, and no evidence of cellulitis. MS/ Extremity: Pulses equal, no cyanosis. Neurovascular intact. Full, normal range of motion. 11:03 Cardiovascular: Exam negative for acute changes, Rate: normal, Rhythm: regular, Pulses: no pulse deficits are appreciated. 11:03 Respiratory: Exam negative for acute changes, respiratory distress, shortness of breath, Breath sounds: are clear throughout. 11:03 Abdomen/GI: Exam negative for acute changes, Palpation: abdomen is soft and non-tender, in all quadrants. 11:03 Neuro: Exam negative for acute changes, Orientation: is normal, Mentation: is normal, Motor: is normal, moves all fours. Vital Signs: 10:57 BP 146 / 79; Pulse 88; Resp 16; Pulse Ox 97% on R/A; Weight 97.98 kg; Height 6 ft. 2 ss in. (187.96 cm); Pain 0/10; 13:13 Temp 98.7(O); jh5 13:14 BP 137 / 79; Pulse 66; Resp 18; Pulse Ox 98% ; jh5 10:57 Body Mass Index 27.73 (97.98 kg, 187.96 cm) ss MDM: 10:47 Patient medically screened. pm1 11:05 Data reviewed: vital signs. pm1 12:09 Differential diagnosis: DKA, hyperglycemia, dehydration. pm1 14:02 Counseling: I had a detailed discussion with the patient and/or guardian regarding: the pm1 historical points, exam findings, and any diagnostic results supporting the discharge/admit diagnosis, lab results, radiology results, with the patient's . Reviewed labs and culture from [facility]. Cipro is appropriate. Recommended continuation of cipro and follow up with PCP for management of hyperglycemia. 14:02 Data reviewed: diagnostic data from outside facility, urine culture. Positive for gram pm1 negative rods. Sensitive to cipro. 11/11 11:03 Order name: CBC with Diff; Complete Time: 12:45 pm1 11/11 11:03 Order name: CMP; Complete Time: 11:47 pm1 11/11 11:03 Order name: Urine Microscopic Only; Complete Time: 11:47 pm1 11/11 11:42 Order name: Urine Dipstick-Ancillary; Complete Time: 11:47 EDMS 11/11 11:49 Order name: Urine Culture EDMS 11/11 12:35 Order name: CBC Smear Scan; Complete Time: 12:45 EDMS 11/11 11:03 Order name: IV Saline Lock; Complete Time: 11:06 pm1 11/11 11:03 Order name: Urine Dipstick-Ancillary (obtain specimen); Complete Time: 11:29 pm1 11/11 11:04 Order name: Chest Pa And Lat (2 Views) XRAY; Complete Time: 12:04 pm1 11/11 12:54 Order name: Glucose Level; Complete Time: 13:10 pm1 11/11 13:22 Order name: Glucose, Ancillary Testing; Complete Time: 13:26 EDMS Administered Medications: 11:12 Drug: NS 0.9% 500 ml Route: IV; Rate: bolus; Site: right antecubital; [facility] 11:58 Drug: NS 0.9% 1000 ml Route: IV; Rate: 1000 ml; Site: right antecubital; [facility] 12:06 Drug: Insulin Regular Human 5 units {Co-Signature: vg1 (Hyun Núñez RN).} Route: jh5 IVP; Site: right antecubital; Disposition: 14:50 Co-signature as Attending Physician, Haseeb Gonzalez MD I agree with the assessment and kdr plan of care. Disposition Summary: 11/11/22 14:04 Discharge Ordered Location: Home pm1 Problem: new pm1 Symptoms: have improved pm1 Condition: Stable pm1 Diagnosis - Hyperglycemia, unspecified pm1 Followup: pm1 - With: Emergency Department - When: As needed - Reason: Worsening of condition Followup: pm1 - With: [facility] - When: 2 - 3 days - Reason: Recheck today's complaints, Continuance of care, Re-evaluation by your physician Followup: pm1 - With: Private Physician - When: 2 - 3 days - Reason: Recheck today's complaints, Continuance of care, Re-evaluation by your physician Discharge Instructions: - Discharge Summary Sheet pm1 - Hyperglycemia pm1 - Blood Glucose Monitoring, Adult pm1 - Diabetes Mellitus and Exercise pm1 - Diabetes Mellitus and Nutrition, Adult pm1 Forms: - Medication Reconciliation Form pm1 - Thank You Letter pm1 - Antibiotic Education pm1 - Prescription Opioid Use pm1 Signatures: Dispatcher [employer] EDMS Haseeb Gonzalez MD MD [facility] Roseann Sutton, RN RN ss Grey Arce, ABBI CANVAS WORKER APPRENTICE pm1 Lilian Stinson RN RN jh5 Hyun Núñez RN vg1
--- NOTE | 2022-11-11 14:05 | ER ---
Nurse's Notes [facility] Name: Eduardo Claudio Age: 72 yrs Sex: Male : 1950 Arrival Date: 11/11/2022 Time: 10:30 Bed 15 Private MD: Gregg Salas Diagnosis: Hyperglycemia, unspecified Presentation: 11/11 10:57 Chief complaint: Patient states: diagnosed at [facility] with U[facility] and [facility] because blood sugar was running a little high. [place] [facility] sent patient over to rule out sepsis. Pt denies pain/ fever. States that he is just weak/ tired. Coronavirus screen: Client denies travel out of the [place] in the last 14 days. Ebola Screen: Patient denies exposure to infectious person. Patient denies travel to an Ebola-affected area in the 21 days before illness onset. Initial Sepsis Screen: Does the patient meet any 2 criteria? No. Patient's initial sepsis screen is negative. Does the patient have a suspected source of infection? No. Patient's initial sepsis screen is negative. Risk Assessment: Do you want to hurt yourself or someone else? Patient reports no desire to harm self or others. Onset of symptoms was November 06, 2022. 10:57 Method Of Arrival: Wheelchair ss 10:57 Acuity: CHAYO 3 ss Triage Assessment: 13:17 General: Appears in no apparent distress. comfortable, slender, well groomed, well jh5 developed, Behavior is calm, cooperative, appropriate for age. Respiratory: Reports shortness of breath over 2 years; intermittent Respiratory: Onset: The symptoms/episode began/occurred 2 years. Historical: - PMHx: 10:59 Diabetes mellitus; ss - Immunization history:: Client reports receiving the 2nd dose of the Covid vaccine. - Social history:: Smoking status: Patient/guardian denies using tobacco, but has a distant history of tobacco abuse. Screenin:16 [facility] ED Fall Risk Assessment (Adult) History of falling in the last 3 months, jh5 including since admission No falls in past 3 months (0 pts) Confusion or Disorientation No (0 pts) Intoxicated or Sedated No (0 pts) Impaired Gait No (0 pts) Mobility Assist Device Used No (0 pt) Altered Elimination No (0 pt) Score/Fall Risk Level 0 - 2 = Low Risk. Abuse screen: Denies threats or abuse. Denies injuries from another. Nutritional screening: No deficits noted. Tuberculosis screening: No symptoms or risk factors identified. Assessment: 13:16 Pain: Denies pain. Cardiovascular: Rhythm is regular. Respiratory: Airway is patent jh5 Respiratory effort is even, unlabored, Breath sounds are clear. Vital Signs: 10:57 BP 146 / 79; Pulse 88; Resp 16; Pulse Ox 97% on R/A; Weight 97.98 kg; Height 6 ft. 2 ss in. (187.96 cm); Pain 0/10; 13:13 Temp 98.7(O); jh5 13:14 BP 137 / 79; Pulse 66; Resp 18; Pulse Ox 98% ; jh5 10:57 Body Mass Index 27.73 (97.98 kg, 187.96 cm) ss ED Course: 10:30 Patient arrived in ED. as 10:30 Gregg Salas is Private Physician. as 10:41 Grey Arce NP is PHCP. pm1 10:41 Haseeb Gonzalez MD is Attending Physician. pm1 10:59 Triage completed. ss 10:59 Arm band placed on right wrist. ss 11:12 Inserted saline lock: 20 gauge in right antecubital area, using aseptic technique. jh5 11:46 Chest Pa And Lat (2 Views) XRAY In Process Unspecified. EDMS 11:50 Lilian Stinson, CATALINO is Primary Nurse. jh5 13:16 Patient has correct armband on for positive identification. Bed in low position. Call [facility] light in reach. Side rails up X 1. 13:16 No provider procedures requiring assistance completed. jh5 14:04 [facility] is Referral Physician. pm1 14:19 IV discontinued, intact, bleeding controlled, No redness/swelling at site. Pressure jh5 dressing applied. Administered Medications: 11:12 Drug: NS 0.9% 500 ml Route: IV; Rate: bolus; Site: right antecubital; jh5 11:58 Drug: NS 0.9% 1000 ml Route: IV; Rate: 1000 ml; Site: right antecubital; jh5 12:06 Drug: Insulin Regular Human 5 units {Co-Signature: vg1 (Hyun Núñez RN).} Route: jh5 IVP; Site: right antecubital; Medication: 13:16 VIS not applicable for this client. 5 Outcome: 14:04 Discharge ordered by . pm1 14:19 Discharged to home ambulatory. [facility] 14:19 Condition: good 14:19 Discharge instructions given to patient, family, Instructed on discharge instructions, follow up and referral plans. medication usage, safety practices, Demonstrated understanding of instructions, follow-up care, medications. 14:21 Patient left the ED. [facility] Signatures: Dispatcher [employer] Lily Ash Shelby, CATALINO RN Grey Cox NP MILKING WORKER pm1 Lilian Stinson RN RN 5 Hyun Núñez RN vg1
[2022-11-11 14:41] VITALS: TEMP 98.7
[2022-11-11 14:47] VITALS: BP 137/79; O2SAT 98
== END 2022-11-11 14:21 | disposition home or self-care (01) ==
LOC: ER 10:27
DX: E11.65 Type 2 diabetes mellitus with hyperglycemia (principal); R06.02 Shortness of breath
CPT/HCPCS: 87088; 85025; 87086; 36415; 82947; 80053; 71046; J1815; J7040; J7030; 81003; 81015

== ENCOUNTER 2023-11-03 10:43 | Inpatient (IN) | payer OTHER ==
[2023-11-03] MEDS ORDERED: ACETAMINOPHEN 500 MG TAB PO PRN (15:52)
[2023-11-03] MEDS ORDERED: GLUCAGON 1 MG/VIAL IM PRN ×2 (15:56→20:42)
[2023-11-03] MEDS ORDERED: D10W 250 ML BAG IV PRN (15:56)
[2023-11-03] MEDS: HYDROCODONE/APAP 5/325 MG TAB PO PRN (16:35)
[2023-11-03] MEDS: METOPROLOL XL 100 MG TAB PO SCH (17:31)
[2023-11-03] MEDS: INSULIN NPH (HUMAN) 100 UNITS/ML SQ SCH (17:32)
[2023-11-03] MEDS: INSULIN LISPRO 100 UNIT/ML SQ SCH (17:32)
[2023-11-03 17:33] LABS: Specific Gravity 1.012 (1.005-1.030); Urine Bacteria None Seen /HPF (<20); Urine Bilirubin NEGATIVE (Negative); Urine Blood Negative (Negative); Urine Clarity Clear (Clear); Urine Color Light-Yellow (Yellow); Urine Glucose 1+ (Negative); Urine Mucus Slight /HPF (None Seen); Urine Protein NEGATIVE (Negative); Urine RBC <5 /HPF (None Seen); Urine Urobilinogen Normal (Normal)
[2023-11-03] MEDS ORDERED: ONDANSETRON 4 MG (ODT) TAB PO PRN (20:12)
[2023-11-03] MEDS: TRAZODONE 50 MG TABLET PO PRN (20:39)
[2023-11-03] MEDS: MELATONIN 5 MG TABLET PO SCH (20:39)
[2023-11-03] MEDS: APIXABAN 5 MG TABLET PO SCH (20:40)
[2023-11-03] MEDS: QUETIAPINE 25 MG TAB PO PRN (20:40)
[2023-11-03] MEDS: AMIODARONE HCL 200 MG TAB PO SCH (20:40)
[2023-11-03] MEDS: GABAPENTIN 100 MG CAP PO SCH (20:40)
[2023-11-03] MEDS ORDERED: D50W 25 GM/50 ML SYRINGE IV PRN (20:42)
[2023-11-03] MEDS: ATORVASTATIN 40 MG TAB PO SCH (20:44)
[2023-11-03] MEDS: INSULIN REGULAR (HUMAN) 100 UNIT/ML SQ SCH (20:51)
[2023-11-03] MEDS ORDERED: QUETIAPINE 25 MG TAB PO SCH (21:00)
[2023-11-03] MEDS ORDERED: TRAZODONE 50 MG TABLET PO SCH (21:00)
[2023-11-03] MEDS ORDERED: INSULIN LISPRO 100 UNIT/ML SQ SCH (21:00)
[2023-11-04 04:52] LABS: Hematocrit 28.6 % (39.6-49.0); MPV 8.8 fL (7.6-11.3); Platelets 253 thou/uL (152-406); RBC Red Blood Cell Count 4.21 M/uL (4.33-5.43)
[2023-11-04 05:24] LABS: Albumin 2.7 g/dL (3.4-5.0); Prealbumin 14.4 mg/dL (20-40)
[2023-11-04] MEDS: PANTOPRAZOLE 40MG TABLET PO SCH (07:43)
[2023-11-04] MEDS: METOPROLOL XL 50 MG TAB PO SCH (07:45)
[2023-11-04] MEDS: CETIRIZINE HCL 5 MG TABLET PO SCH (07:45)
[2023-11-04] MEDS: METFORMIN HCL 500 MG TAB PO SCH (07:45)
[2023-11-04] MEDS: FOLIC ACID 1 MG TABLET PO SCH (07:46)
[2023-11-04] MEDS: CLOPIDOGREL 75 MG TABLET PO SCH (07:46)
[2023-11-04] MEDS: ASPIRIN EC 81 MG TAB PO SCH (07:46)
[2023-11-04] MEDS: FUROSEMIDE 20 MG TABLET PO SCH (07:46)
[2023-11-04] MEDS: LACTOBACILLUS/ACIDOPHILUS TAB PO SCH (07:47)
[2023-11-04] MEDS: DIGOXIN 0.125 MG TABLET PO SCH (07:47)
[2023-11-04] MEDS ORDERED: FUROSEMIDE 40 MG TABLET PO SCH ×2 (08:00)
[2023-11-04] MEDS ORDERED: ASPIRIN EC 81 MG TAB PO SCH (08:00)
[2023-11-04] MEDS: ALOGLIPTIN BENZOATE 6.25 MG TABLET PO SCH (08:04)
[2023-11-04 08:43] LABS: Platelet Estimate ADEQ
[2023-11-04 08:44] LABS: Blood Morphology Comment NOTED (NOT SEEN); Hypochromasia 1+; Ovalocytes 1+
[2023-11-04] MEDS: GABAPENTIN 100 MG CAP PO ONE (10:52)
[2023-11-04] MEDS: CYANOCOBALAMIN 1000MCG/ML INJ IM ONE (17:41)
[2023-11-04] MEDS: BISACODYL 10 MG RECTAL SUPP PR PRN (18:20)
[2023-11-04] MEDS: GABAPENTIN 300 MG CAP PO SCH (19:11)
[2023-11-04] MEDS: DOCUSATE NA/SENNA CONC 1 TAB PO PRN (19:11)
[2023-11-04] MEDS: GLUCERNA SHAKE 237 ML CAN PO SCH (19:12)
--- NOTE | 2023-11-04 21:00 | HP ---
Date of Admission: 11/03/2023 Time Of Service: 12:30 p.m. Chief Complaint: "I'm very tired, I had surgery." History Of Present Illness: Mr. Claudio is a 73-year-old patient with history of smoking, diabetes mylene litus, coronary artery disease, status post left anterior descending stent in July 2023, prostate cancer, status post prostatectomy, who had significant shortness of breath, fatigue, was evaluated an d had his transesophageal echocardiogram reveal a dilated ascending aortic aneurysm with severe aorti c stenosis and heavy calcification. He was initially evaluated in 2020 around the time he had COVID and was found to have the aneurysm and stenosis, but had not yet progressed to the point that surgery was very eminent. However, the recent evaluation and his clinical picture progressed to the point h e required surgery. He was taking aspirin and Plavix at that time, that was held for 5 days, and he was hydrated and had antibiotics for urinary tract infection and completed his workup that is pre-montrell gical and he eventually had an ascending aortic and hemiarch repair with a 23 mm bioprosthetic aortic valve done. Postoperatively after extubation, he did well, was monitored hemodynamically, had a maurizio st tube in place. He had brief episodes of rapid ventricular response in the operating room which wiggins mami resolved. Postoperatively, hemoglobin was down to 9.6 and then did require a unit of blood to keep it elevated. Blood sugars were around 100s to 200s. His white blood cell count also is elevated wi th leukocytosis postoperatively and some additional episodes of tachycardia, dysphagia, and was evalu ated by Physical, Occupational, and Speech Therapy and determined to be functioning significantly low er than his baseline level of functioning, requiring help with ET tube diet to avoid aspiration. He had to ambulate with a rolling walker, was able to do so with contact guard assistance to minimize lo ss of balance, had more difficulty with showering, dressing of upper and lower body, and ability to p erform activities of daily living. As a result of his postoperative state and multiple comorbid cond itions in addition to the risk of infection, aspiration, and anemia, he was determined to be an appro priate candidate for inpatient rehabilitation and was therefore admitted for physical, occupational, and speech therapy. Past Medical History: As noted above. Past Surgical History: Appendectomy, colonoscopy, coronary angioplasty with stenting, prostatectomy, tonsillectomy, and aortic valve repair. X-ray And Images: Chest x-ray done on 10/27 shows endotracheal tube was removed. Otherwise, stable support apparatus in heart valves. The lungs and pleura show stable left lung base opacity. Stable pulmonary aeration. No pneumonia. Heart and mediastinum show stable contours. No acute osseous abn ormalities and there was atrial fibrillation with rapid response on ECG. Allergies: NO KNOWN DRUG ALLERGIES. Medications: Tylenol Extra Strength 500 mg every 6 hours as needed, Cordarone 200 mg twice daily, El iquis 5 mg twice daily, aspirin 81 mg daily, Lipitor 40 mg at bedtime, Dulcolax 100 mg daily, Zyrtec 100 mg daily, Plavix 75 mg daily, vitamin B12 1000 mcg injection daily, digoxin 0.125 mg daily, Gluce rna 237 mL twice daily, folic acid 1 mg daily, Lasix 20 mg daily, gabapentin 300 mg twice daily, gildardo tonin 10 mg at bedtime, metformin 1000 mg twice daily, Toprol-XL 50 mg twice daily, Hemocyte Plus 1 t ablet daily, Zofran 4 mg every 4 hours as needed, Seroquel 25 mg at bedtime, Senokot-S 2 at bedtime, trazodone 50 mg at night for insomnia, sodium chloride 1 g daily. Laboratory Studies: White blood cell count 9.5, hemoglobin also 9.5, platelets 253. Sodium slightly low at 132, potassium 4, chloride also slightly low at 97, carbon dioxide 30, BUN 14, creatinine 0.9 2, glucose ranged from 121 to 226, calcium 8.9, magnesium 2.0, albumin 2.7, prealbumin 14.4. Urinaly sis shows 1+ glucose, is otherwise normal. COVID-19 testing done yesterday is negative. Review of Systems: Mr. Claudio has been very sleepy today and had some difficulty with bowel movements, getting constipate d. Some mild pain in the chest area and had some difficulty maintaining wakefulness to do his therap y. Otherwise, no rash. No psychiatric issues. No genitourinary issues. No dermatological issues a nd no other positives on a 10-point systems review. Current Level Of Functioning: Currently, setup assistance for eating, oral hygiene, contact guard as sistance for toileting, moderate assistance for bathing, upper body dressing, lower body dressing, an d donning and doffing footwear, all moderate assistance. Rolling [id number]-cu-ehqv and bwae-[id number]-swwcb, si t-to-stand are contact guard assistance. Transfer from bed to chair to shower to toilet, contact marya rd assistance. Ambulation, he did ambulate 250 feet with a rolling walker with contact guard assista nce. Physical Examination: Vital Signs: Blood pressure 129/59, pulse of 80, respiratory rate 18, temperature 97.8, oxygen satur ation 96%. General: Mr. Claudio is resting in bed. He is somewhat drowsy, but can be easily alerted and follows commands appropriately. HEENT: He appears normocephalic, atraumatic. Sclerae anicteric. Oropharynx pink and moist. Neck: Supple. Chest: Clear. Heart: Regular. Extremities: Show no clubbing, cyanosis, or edema. Neuro: He has no focal neurologic deficits. He moves upper extremities equally well. Rehabilitation And Medical Assessment And Plan: Mr. Claudio is admitted to the rehabilitation unit [facility] h impairment category 14, cardiac. His impairment group code is 09, cardiac. Etiologic Diagnosis: Severe aortic stenosis. His comorbidities are coronary artery disease, decreas ed mobility, decrease in physical functioning, diabetes mellitus, dysphagia, hyperglycemia, hyponatre isak, insomnia, tachycardia, postoperative anemia, diastolic congestive heart failure, leukocytosis, c hronic heart failure. Plan: 1.Physical, occupational, and speech therapy for 3.5 hours, 5 of 7 days. 2.He has comorbid conditions including hypertension managed and fibrillation with rapid ventricular response. For that, he is on the Cordarone 200 mg twice daily. Also, has digoxin 0.125 mg daily and for the prophylaxis for deep vein thrombosis and cardiac clots, Eliquis 5 mg twice daily and aspirin 81 mg daily. For dyslipidemia, Lipitor 40 mg at bedtime. For pain, [place] 5/325 every 4 hours as ne eded along with Tylenol Extra Strength every 4 hours as needed. 3.For his mild malnutrition, Glucerna 237 mL twice daily and folic acid 1 mg daily. Fluid managemen t with Lasix 20 mg daily, melatonin 10 mg at bedtime for insomnia, diabetes mellitus managed by metfo rmin 1000 mg twice daily and mild sliding scale, Toprol 50 mg twice daily also used to manage heart r ate and blood pressure, Seroquel 25 mg at night for agitation, Senokot-S for constipation, sodium chl oride tablets 1 g daily for replacement of sodium and chloride and trazodone for insomnia. Comorbidities That Are Impacting His Rehabilitation: He is somewhat sedated at this point and we reece l hold extra medications such as narcotics and medications for insomnia. Gabapentin 300 mg twice catherine ly and decrease the need for narcotics. Also he does have sternal precautions to maintain and will b e reminded of that and will have speech therapy to help him with the return of cognitive functioning. In addition, he has malnutrition and anemia and will have protein supplementation and iron suppleme ntation along with calcium and vitamin D. Rehab Specific Plan: Mr. Claudio will have physical, occupational, and speech therapy for 3.5 hours, 5 of 7 days to improve his ability to transfer from bed to chair to toilet to shower towards modified independence level. Ambulate 250 feet with modified independence, up and down 10 steps with modified independence. Perform cognitive functioning with modified independence and manage all activities of daily living with modified independence. Mr. Claudio has a good understanding of the process of admission to the inpatient rehabilitation facili and that he will receive physical, occupational, and speech therapy. If need be, assistance from the Cardiology Service, Pulmonary Service, and Nutrition Service will be consulted. Given his comple x medical condition and risk of further complications, rehabilitation cannot be safely or affectively performed at a lower level facility such as [facility]. Barriers To Discharge: Currently, he is somewhat somnolent and that may be improved by decreasing th e narcotic medication burden and using the neuromodulator. Gabapentin will also help and maintain st ernal precautions and once he is cognitively fully there, should be able to understand and follow tho se appropriately. Length Of Stay: About 12 days. Disposition: Home with family. Prognosis: Good. Rehab Goals: 1.Become independent with upper and lower body dressing, transferring, toileting, showering while ma intaining sternal precautions. 2.Independently ambulate 250 feet with a rolling walker. 3.Use a wheelchair independently. Use a wheelchair to mobilize 250 feet with modified independence. 4.Independently go up and down 10 steps with modified independence. 5.Independently perform cognitive functioning with modified independence including managing his acti vities of daily living and performing those safely. 6.The above goals were discussed with Mr. Claudio and he is in agreement. By signing this document, I acknowledge that I performed a full physical examination of Mr. Claudio no later than 24 hours after his admission to the inpatient rehabilitation facility and determined he is able to tolerate the above course of treatment at an intensive level for reasonable period of time. A detailed individualized plan of care for him will be completed by hospital day 4 based on the pre- admission screening, history and physical, and therapy evaluations. VINH Voice ID: [id number]
[2023-11-05 07:12] VITALS: BMI 26.7
[2023-11-05] MEDS: FE SULF/FA/VIT B COMP & C TAB PO SCH (08:02)
[2023-11-05] MEDS: SODIUM CHLORIDE 1 GM TAB PO SCH (08:05)
--- NOTE | 2023-11-05 13:47 | P.RH.PN ---
Estimated Length of Stay: 15 Expected Discharge Date: 11/17/23 Discharge Disposition Plan: Home Family Support: Yes Vital Signs: Last Vital Signs Temp 97.3 F 11/05/23 06:47 Pulse 84 11/05/23 08:05 Resp 16 11/05/23 12:41 BP 119/57 L 11/05/23 08:05 Pulse Ox 96 11/05/23 12:41 Laboratory: Laboratory Last Values WBC 9.50 thou/uL (4.3-10.9) 11/04/23 04:28 RBC 4.21 M/uL (4.33-5.43) L 11/04/23 04:28 Hgb 9.5 g/dL (13.6-17.9) L 11/04/23 04:28 Hct 28.6 % (39.6-49.0) L 11/04/23 04:28 MCV 68.0 fL (80-100) L 11/04/23 04:28 MCH 22.5 pg (27.0-35.0) L 11/04/23 04:28 MCHC 33.1 g/dL (32.0-36.0) 11/04/23 04:28 RDW 21.5 % (12.1-15.2) H 11/04/23 04:28 Plt Count 253 thou/uL (152-406) 11/04/23 04:28 MPV 8.8 fL (7.6-11.3) 11/04/23 04:28 Neutrophils % HOTEL ATTENDANT 11/04/23 04:28 Lymphocytes % HOTEL ATTENDANT 11/04/23 04:28 Absolute Neutrophils HOTEL ATTENDANT 11/04/23 04:28 Segmented Neutrophils 70 % (40-80) 11/04/23 04:28 Absolute Lymphocytes HOTEL ATTENDANT 11/04/23 04:28 Lymphocytes 15 % (15-42) 11/04/23 04:28 Monocytes 15 % (0-10) H 11/04/23 04:28 Absolute Monocytes HOTEL ATTENDANT 11/04/23 04:28 Absolute Eosinophils HOTEL ATTENDANT 11/04/23 04:28 Absolute Basophils HOTEL ATTENDANT 11/04/23 04:28 Platelet Estimate Adeq 11/04/23 04:28 Hypochromasia 1+ 11/04/23 04:28 Microcytosis 1+ 11/04/23 04:28 Ovalocytes 1+ 11/04/23 04:28 Morphology Comment Noted (NOT SEEN) 11/04/23 04:28 Sodium 132 mEq/L (136-145) L 11/04/23 04:28 Potassium 4.0 mEq/L (3.5-5.1) 11/04/23 04:28 Chloride 97 mEq/L (98-107) L 11/04/23 04:28 Carbon Dioxide 30 mEq/L (21-32) 11/04/23 04:28 Anion Gap 9.0 mEq/L (5.0-15.0) 11/04/23 04:28 BUN 14 mg/dL (7-18) 11/04/23 04:28 Creatinine 0.92 mg/dL (0.70-1.30) 11/04/23 04:28 Est GFR (CKD-EPI) 87 ml/min (=/>90) L 11/04/23 04:28 Glucose 121 mg/dL (74-106) H 11/04/23 04:28 POC Glucose 180 mg/dL (65-120) H 11/05/23 11:53 Calcium 8.9 mg/dL (8.5-10.1) 11/04/23 04:28 Magnesium 2.0 mg/dL (1.6-2.4) 11/04/23 04:28 Albumin 2.7 g/dL (3.4-5.0) L 11/04/23 04:28 Prealbumin 14.4 mg/dL (20-40) L 11/04/23 04:28 Urine Color Light-yellow (Yellow) 11/03/23 17:13 Urine Clarity Clear (Clear) 11/03/23 17:13 Urine pH 6.0 (5.0-7.0) 11/03/23 17:13 Ur Specific Scalf 1.012 (1.005-1.030) 11/03/23 17:13 Glucose (UA)(Auto) 1+ (Negative) H 11/03/23 17:13 Urine Ketones Negative (Negative) 11/03/23 17:13 Urine Blood Negative (Negative) 11/03/23 17:13 Urine Nitrite Negative (Negative) 11/03/23 17:13 Urine Bilirubin Negative (Negative) 11/03/23 17:13 Urine Urobilinogen Normal (Normal) 11/03/23 17:13 Ur Leukocyte Esterase Negative Hazel/uL (Negative) 11/03/23 17:13 Urine RBC <5 /HPF (None Seen) 11/03/23 17:13 Urine WBC <5 /HPF (<5) 11/03/23 17:13 Ur Squamous Epith Cells <5 /HPF (None Seen) 11/03/23 17:13 Urine Bacteria None seen /HPF (<20) 11/03/23 17:13 Urine Mucus Slight /HPF (None Seen) 11/03/23 17:13 Urine Culture Reflexed Not needed 11/03/23 17:13 Urine Total Protein Negative (Negative) 11/03/23 17:13 SARS-CoV-2 Rap RNA(RT-PCR) Negative (NEGATIVE) 11/03/23 21:00 Weight: 208 lb 4.8 oz Wound Present: Yes Closed Surgical Incision Present: Yes Negative Pressure Wound Therapy Present: No Physician Update: Labs reviewed and are stable. Low protein level, mild anemia. He fatigues easily but is still working better. Will D/C melatonin. Mod to max assistance with transfers. Having difficulty with sternal precautions. Walking much better today. RW 200' with standby assistance. Summary: Patient's care plan and halfway goals have been reviewed and revised as necessary. Please see the Rehabilitation Signature page for all necessary signatures.
--- NOTE | 2023-11-05 14:46 | RAD REPORT ---
EXAM DESCRIPTION: RAD - Abdomen 1 View (KUB) - 11/05/2023 2:38 pm CLINICAL HISTORY: R//O bowel obstruction. Pain COMPARISON: <Comparisons> FINDINGS: Mild gaseous distention of bowel loops seen in the lower abdomen. Moderate stool present t hroughout the colon. The findings would favor ileus over mechanical obstruction. No evidence of free air.
[2023-11-05] MEDS: FLEET ENEMA ADULT PR PRN (16:14)
[2023-11-06] MEDS: DOCUSATE NA/SENNA CONC 1 TAB PO SCH (19:58)
[2023-11-08 04:56] LABS: Absolute Lymphocytes (CBC) 1.9 K/uL (0.7-4.9); Hematocrit 25.9 % (39.6-49.0); Lymphocytes % 16.8 % (15.3-44.8); MPV 8.5 fL (7.6-11.3); Platelets 351 thou/uL (152-406); RBC Red Blood Cell Count 3.86 M/uL (4.33-5.43)
[2023-11-08 05:00] LABS: MCV 67.1 fL (80-100)
[2023-11-08 05:12] LABS: Potassium 4.2 mEq/L (3.5-5.1)
[2023-11-08] MEDS: DOCUSATE NA/SENNA CONC 1 TAB PO SCH (20:00)
[2023-11-08] MEDS: SENOSIDES 8.6 MG TAB ONE (20:03)
--- NOTE | 2023-11-08 22:45 | PN ---
Date of Progress Note: 11/08/2023 Time Of Service: 1:40 p.m. Subjective: He has no new complaints. He said he was able to do the therapy that they asked him to do and was able to follow the precautions which he has, sternal precautions after his aortic stenosis surgery and has mild myalgias, arthralgias. Otherwise, no other complaints. No fevers, chills, madeline sea, or vomiting. No significant myalgias or arthralgias. Pain 2 to 3/10 in the chest. He did have some issues of some pain in the chest earlier and had an unremarkable EKG, otherwise negative. Objective: Vital Signs: Blood pressure 125/59, pulse 89, respiratory rate of 16, temperature 97.2, O2 saturation 95%. General: Mr. Claudio is lying in bed. HEENT: He is normocephalic, atraumatic. Sclerae anicteric. Oropharynx pink and moist. Neck: Supple. Chest: Clear. Heart: Regular. He does have his chest pillow, which at times he says he holds and helps with his s ternal wound and he has good hemostasis there. Lower Extremities: No significant edema or cyanosis. Laboratory Studies: White blood cell count did go up from 9.5 on to 11.3 today. Neutrophils di d go to 69.0, hemoglobin 8.5, hematocrit 25.9. Today, sodium 134, potassium 4.2, chloride 98, carbon dioxide 30. His creatinine 0.93, glucose ranged from 88 to 174. Calcium 8.5. Note, his COVID-19 t esting is negative. Medications: Tylenol 500 mg every 6 hours as needed, [place] 5/325 every 4 hours as needed, amiodarone 200 mg twice daily, Eliquis 5 mg twice daily, aspirin 81 mg daily, Lipitor 40 mg at bedtime, Zyrtec 10 mg daily as needed, digoxin 0.125 mg daily, Glucerna 237 mL twice daily, folic acid 1 mg daily, [place] bapentin 300 mg twice daily, Lactinex 1 tablet daily, melatonin 10 mg at bedtime, metformin 1000 mg t wice daily, Toprol-XL 50 mg twice daily, Hemocyte Plus 1 tablet daily, Zofran 4 mg every 4 hours as n eeded, Seroquel 25 mg at bedtime for agitation, Senokot-S 2 tablets at bedtime, fleets enema as neede d for constipation. He is also on sodium chloride tablets 1 g daily and trazodone 50 mg at night for insomnia. Progress Made With Physical And Occupational Therapy: Today with physical therapy, he was able to co mplete wheelchair mobilization 250 feet modified independence. He completed bed mobilization with mo dified independence. [id number] transfers done independently. With occupational therapy, activiti es of daily living done independently. Bathing, upper body dressing, sternal precautions done indepe ndently, shaving done independently. He is not receiving speech therapy as he is doing very well in that perspective. Mr. Claudio is making great progress with physical and occupational therapy and is likely to be ready f or discharge at this time and will likely benefit best from cardiac rehab. Assessment: Mr. Claudio is a 73-year-old patient in rehabilitation unit with severe aortic stenosis, s tatus post sternotomy with replacement of the aortic valve. He has diabetes mellitus, dysphagia, hyp oglycemia, hyponatremia, diastolic congestive heart failure, leukocytosis. Plan: 1.Continue with physical and occupational therapy 3 hours a day, 5 of 7 days. 2.Continue with antihypertensive medications and rate control medications for atrial fibrillation wi th rapid ventricular response that includes Cordarone and digoxin. 3.Continue Eliquis 5 mg twice daily and aspirin 81 mg daily for stroke and DVT risk reduction. 4.Continue Lipitor for dyslipidemia. 5.Continue [place] and Tylenol for pain. 6.Continue Glucerna for his malnutrition, Lasix for fluid management, Seroquel for agitation, and so dium chloride for low sodium. Comorbidities That Are Continuing To Impact His Rehabilitation: Currently, gabapentin is added for n europathic pain. It is very helpful to decrease the sternal twitches that the patient does report at times and he is also on additional medications including [place] and Tylenol which are addressing the pain in the chest quite well. He had some constipation that has bee n addressed. LB/MODL Voice ID: [id number] Report ID: [id number]
--- NOTE | 2023-11-09 22:36 | PN ---
Date of Progress Note: 11/09/2023 Time Of Service: 1:40 p.m. Subjective: Mr. Claudio is resting comfortably in bed with 3 therapy sessions. He ascended a lot of e xercise today. He is very happy about his progress so far. His sternal precautions have been adhere d to and he has a sternal pillow at bedside. Review of Systems: No fevers, chills, nausea, vomiting, myalgias, arthralgias, except some mild pain in the sternal area . No other complaints. Physical Examination: Vital Signs: Blood pressure 117/56, pulse 80, respiratory rate 17, temperature 98.2, oxygen saturati on 95%. General: Mr. Claudio again is resting comfortably. at bedside. HEENT: He is normocephalic, atraumatic. Sclerae anicteric. Chest: He has good hemostasis at the surgical site in his chest. Extremities: No abnormalities or focal findings in the lower extremities. Laboratory Studies: Blood sugars ranged from 112 to 178. X-ray/imaging: No new x-rays or imaging. Medications: His medications have been reviewed and are all unchanged. Progress Made With Physical And Occupational Therapy: Today with physical therapy, ambulated 250 fee t 3 times with contact guard to standby assistance. Bed mobilization done with contact guard assista nce. Multiple [id number]-[id number] done by contact guard to standby assistance. With occupational therapy, completed toilet transfers with a rolling walker independently. [id number] done independently. Mcelroy pine-to-sit transfers twice and edge of bed independently. His did begin with assisting him wit h transfers and mobilization as she is doing very well. Assessment: Mr. Claudio is doing excellent. He is admitted with severe aortic stenosis, status post a ortic valve repair. His comorbidities are stably managed including diabetes, hyponatremia, diastolic congestive heart failure, leukocytosis, and surgical site of his median sternotomy. Plan: 1.Continue with physical and occupational therapy for 3 hours a day, 5 of 7 days. 2.He has multiple comorbid conditions and medications, which are continuing as noted previously incl uding digoxin, Cordarone, Eliquis, Lipitor, [place], Glucerna, Lasix, Seroquel, and sodium chloride rep lacement. Comorbidities That Are Continuing To Impact His Rehabilitation: His sternal pain and muscle twitches which he has complained of in the past have improved well. His constipation is improved and his moo d and outlook have also improved and those are not negatively impacting his rehabilitation. UMA/WANDER Voice ID: [id number] Report ID: [id number]
[2023-11-10 05:31] LABS: Absolute Lymphocytes (CBC) 2.1 K/uL (0.7-4.9); Hematocrit 25.3 % (39.6-49.0); Lymphocytes % 22.2 % (15.3-44.8); MCV 65.8 fL (80-100); MPV 8.1 fL (7.6-11.3); Platelets 362 thou/uL (152-406); RBC Red Blood Cell Count 3.85 M/uL (4.33-5.43)
[2023-11-10 05:51] LABS: Albumin 2.5 g/dL (3.4-5.0); Magnesium 1.5 mg/dL (1.6-2.4); Potassium 3.8 mEq/L (3.5-5.1); Prealbumin 14.3 mg/dL (20-40)
[2023-11-10 08:32] LABS: White Blood Cell Scan OK (OK)
[2023-11-10 08:33] LABS: Anisocytosis 1+; Blood Morphology Comment NOTED (NOT SEEN); Hypochromasia 1+; Platelet Estimate ADEQ; Poikilocytosis 1+; Target Cells 1+
[2023-11-10] MEDS: MAGNESIUM SULFATE 1 gm IVPB 1 GM/100 ML BAG IV ONE (14:45)
[2023-11-10] MEDS: MAGNESIUM OXIDE 400 MG TAB PO SCH (19:41)
[2023-11-11] MEDS: FERROUS SULFATE 325 MG TAB PO SCH (07:56)
[2023-11-11 08:06] VITALS: BP 140/71
[2023-11-11 09:59] VITALS: TEMP 96.9
== END 2023-11-11 11:45 | disposition home health service (06) | DRG 949 ==
LOC: EDSTATUS 10:43 → 5TH 14:38 → UNDOADMOB 14:38
PROVIDERS: ADMIT Psychiatry & Neurology Neurology with Special Qualifications in Child Neurology; ATTEND Psychiatry & Neurology Neurology with Special Qualifications in Child Neurology
DX: Z48.812 Encounter for surgical aftercare following surgery on the circulatory system (principal); E44.1 Mild protein-calorie malnutrition; E87.1 Hypo-osmolality and hyponatremia; I50.30 Unspecified diastolic (congestive) heart failure; K59.00 Constipation, unspecified; R13.10 Dysphagia, unspecified; E11.65 Type 2 diabetes mellitus with hyperglycemia; G47.00 Insomnia, unspecified; R00.0 Tachycardia, unspecified; D64.9 Anemia, unspecified; I48.91 Unspecified atrial fibrillation; E78.5 Hyperlipidemia, unspecified; Z68.27 Body mass index [BMI] 27.0-27.9, adult; Z95.2 Presence of prosthetic heart valve
CPT/HCPCS: 36415; 74018; 80048; 81001; 82040; 82947; 83735; 83880; 84134; 85025; 87086; 87088; 87635; 97110; 97112; 97116; 97163; 97165; 97530; 97542; J1815; J3420; J3475